=== PATIENT | male | born 1955 | race Caucasian/White ===

== ENCOUNTER 2019-03-25 09:51 | Inpatient (IN) | payer OTHER ==
[~2019-03-25] VITALS: Ht 175.3 cm; Wt 89.9 kg
[2019-03-25] MEDS ORDERED: ASPIRIN 81 MG CHEW TAB PO STA (09:54)
[2019-03-25 10:13] LABS: BASOPHILS % 0.3 % (0.0-1.0); EOSINOPHILS # (AUTO) 0.1 (0.0-0.4); EOSINOPHILS % 1.8 % (0.0-6.0); HEMATOCRIT 29.4 % (38.2-49.6); HEMOGLOBIN 8.4 g/dL (14.0-18.0); LYMPHOCYTES # (AUTO) 0.5 (1.0-3.2); LYMPHOCYTES % 7.6 % (18.0-39.1); MEAN CORPUSCULAR HEMOGLOBIN 21.5 pg (28-32); MEAN CORPUSCULAR HGB CONC 28.6 g/dL (31-35); MEAN CORPUSCULAR VOLUME 75.2 fL (81-99); MONOCYTES # (AUTO) 0.4 (0.2-0.8); MONOCYTES % 6.1 % (4.4-11.3); NEUTROPHILS # (AUTO) 5.1 (2.1-6.9); NEUTROPHILS % 81.2 % (38.7-80.0); PLATELET COUNT 258 x10e3/uL (140-360); RED BLOOD COUNT 3.91 x10e6/uL (4.3-5.7); RED CELL DISTRIBUTION WIDTH 18.9 % (11.7-14.4)
[2019-03-25 10:30] LABS: INR 1.04; PROTHROMBIN TIME 14.1 seconds (11.9-14.5)
[2019-03-25] MEDS ORDERED: NITROGLYCERIN 2% OINT 1 GM PKT TOP ONE (10:30)
[2019-03-25 10:31] LABS: ALBUMIN 3.4 g/dL (3.5-5.0); ALBUMIN/GLOBULIN RATIO 0.8 (0.8-2.0); CALCIUM 9.3 mg/dL (8.4-10.2); CREATININE, SERUM 1.86 mg/dL (0.72-1.25); PARTIAL THROMBOPLASTIN TIME 37.9 seconds (23.8-35.5)
--- NOTE | 2019-03-25 10:44 | Diagnostic Imaging Report ---
EXAMINATION: CHEST 2 VIEWS INDICATION: Chest pain, shortness of breath COMPARISON: None FINDINGS: LINES/TUBES:Left chest AICD. EKG leads overlie the chest. LUNGS:The lungs are mildly hyperinflated. There is perihilar fullness and indistinctness of the pulmonary vasculature. PLEURA:No pleural effusion or pneumothorax. MEDIASTINUM:The heart is enlarged. Postoperative findings of prior CABG. BONES/SOFT TISSUES:No acute osseous injury. Sternotomy wires intact. ABDOMEN:No free air under the diaphragm. IMPRESSION: Cardiomegaly and mild pulmonary edema. Signed by: Jurgen Costello MD on 03/25/2019 10:40 AM
--- NOTE | 2019-03-25 10:45 | NUR ---
PATIENT STATES, "IM HAVING A HARD TIME BREATHING". 02 SAT 100@ ON RA. PATIENT PLACED ON NC FOR COMFORT. DR. HENDERSON AWARE
[2019-03-25 10:53] LABS: CREATINE KINASE MB 1.5 ng/mL (0-5.0)
[2019-03-25] MEDS ORDERED: ALLOPURINOL100 MG PO (11:22)
[2019-03-25] MEDS ORDERED: AMIODARONE HCL100 MG PO (11:22)
[2019-03-25] MEDS ORDERED: ALBUTEROL0.63 MG/3 IH (11:22)
[2019-03-25 11:44] LABS: HYPOCHROMASIA SLIGHT
[2019-03-25 11:45] LABS: RBC MORPHOLOGY COMMENT ABNORMAL
[2019-03-25] MEDS ORDERED: NITROGLYCERIN0.4 MG SL (11:48)
[2019-03-25] MEDS ORDERED: DOCUSATE SODIU100 MG PO (11:48)
[2019-03-25] MEDS ORDERED: POTASSIUM CHLO10 ME1 PO (11:48)
[2019-03-25] MEDS ORDERED: SYNTHROID50 MCG PO (11:48)
[2019-03-25] MEDS ORDERED: FUROSEMIDE40 MG PO (11:48)
[2019-03-25] MEDS ORDERED: LIPITOR10 MG PO (11:48)
[2019-03-25] MEDS ORDERED: METOPROLOL SUCC50 MG PO (11:48)
[2019-03-25] MEDS ORDERED: VITAMIN D400 UNIT PO (11:48)
[2019-03-25] MEDS ORDERED: FENOFIBRATE145 MG PO (11:48)
[2019-03-25] MEDS ORDERED: PANTOPRAZOLE SO40 MG PO (11:48)
[2019-03-25] MEDS ORDERED: ASPIR 8181 MG PO (11:48)
[2019-03-25] MEDS ORDERED: GLIPIZIDE5 MG PO (11:48)
[2019-03-25] MEDS ORDERED: MULTI-VITAMIN1 EACH PO (11:48)
[2019-03-25] MEDS ORDERED: CLOPIDOGREL75 MG PO (11:48)
[2019-03-25] MEDS ORDERED: ERGOCALCIF8000 UNIT/ (11:48)
[2019-03-25] MEDS ORDERED: D3-5050000 UNIT PO (11:48)
[2019-03-25] MEDS ORDERED: OMEGA-31000 MG PO (11:48)
[2019-03-25] MEDS ORDERED: ISOSORBIDE DINI20 MG PO (11:48)
[2019-03-25] MEDS ORDERED: XARELTO20 MG PO (12:17)
[2019-03-25] MEDS ORDERED: RANEXA500 MG PO (12:17)
[2019-03-25] MEDS ORDERED: FUROSEMIDE INJ 10 MG/ML 2 ML VIAL IV ONE (12:30)
--- NOTE | 2019-03-25 12:54 | NUR ---
MEAL TRAY AT BEDSIDE
[2019-03-25] MEDS ORDERED: SODIUM CHLORIDE FLUSH 10 ML SYR INJ PRN (13:00)
[2019-03-25] MEDS ORDERED: ONDANSETRON HCL INJ 2MG/ML 2ML 2 MG/ML VIAL IV PRN (13:00)
--- NOTE | 2019-03-25 13:02 | NUR ---
SPOKE WITH PATIENT AND FAMILY MEMBER AT BEDSIDE WHO CONSULTED THE VIA PHONE. PATIENT DID NOT TAKE HIS XARELTO LAST NIGHT BECAUSE HE WAS NOT FEELING WELL, ALSO DID NOT TAKE HIS MORNING MEDS. PER DR. HENDERSON, WE ORDERED HIS AMIODORONE, CLOPIDAGREL AND XARELTO
[2019-03-25] MEDS: AMIODARONE HCL 200 MG TAB PO SCH (13:23)
[2019-03-25] MEDS ORDERED: CLOPIDOGREL BISULFATE 75 MG TAB PO SCH (13:30)
[2019-03-25] MEDS ORDERED: RIVAROXABAN 20 MG TABLET PO SCH (13:30)
--- OUTSIDE RECORDS SUMMARY | 2019-03-25 13:38 | XMS REPORT ---
[facility] Address Unknown Phone Unavailable Care Team Providers Care Cash Sales Audit Clerk Name Role Phone Sahara MG Unavailable Unavailable BLESSING GUZMAN Unavailable Unavailable Payers Payer Name Policy Type Policy Number Effective Date Expiration Date Problems This patient has no known problems. Allergies, Adverse Reactions, Alerts Allergy Name Allergy Type Status Severity Reaction(s) Onset Date Inactive Date Treating Clinician Comments No Known Allergies DA Active U 2019-03-18 00:00:00 No Known Allergies DA Active U 2019-03-17 00:00:00 No Known Allergies DA Active U 2018-03-07 00:00:00 No Known Allergies DA Active U 2017-04-06 00:00:00 Medications This patient has no known medications. Encounters Start Date/Time End Date/Time Encounter Type Admission Type Attending Clinicians [facility] Facility Care Department Encounter ID 2018-12-15 11:15:07 Inpatient [facility] [id number] 2018-12-13 10:10:37 Inpatient [facility] [id number] 2018-12-10 11:04:00 Inpatient [facility] [id number] 2018-12-10 00:00:00 Inpatient [facility] [id number] 2018-01-06 00:00:00 Inpatient [facility] [id number] 2018-01-05 08:41:56 Inpatient [facility] [id number] 2018-01-05 04:13:08 Inpatient [facility] [id number] 2018-01-05 00:00:00 Inpatient [facility] [id number] 2018-01-04 11:28:01 Inpatient [facility] [id number] 2018-01-04 09:05:18 Inpatient [facility] [id number] 2018-01-04 00:00:00 Inpatient [facility] [id number] 2019-04-21 00:00:00 2019-04-21 00:00:00 Outpatient [facility] [id number] 2019-04-12 00:00:00 2019-04-12 00:00:00 Outpatient [facility] [id number] 2019-04-11 00:00:00 2019-04-11 00:00:00 Outpatient [facility] [id number] 2019-03-31 00:00:00 2019-03-31 00:00:00 Outpatient [facility] [id number] 2019-03-31 00:00:00 2019-03-31 00:00:00 Outpatient [facility] [id number] 2019-03-18 00:00:00 2019-03-18 00:00:00 Outpatient [facility] [id number] 2019-03-10 10:50:21 2019-03-10 10:50:21 Outpatient [facility] [id number] 2019-03-10 10:42:14 2019-03-10 10:42:14 Outpatient [facility] [id number] 2019-03-10 09:37:17 2019-03-10 09:37:17 Outpatient [facility] [id number] 2019-03-10 00:00:00 2019-03-10 00:00:00 Outpatient [facility] [id number] 2019-03-01 09:55:26 2019-03-01 09:55:26 Outpatient [facility] [id number] 2019-03-01 08:48:43 2019-03-01 08:48:43 Outpatient [facility] [id number] 2019-03-01 00:00:00 2019-03-01 00:00:00 Outpatient [facility] [id number] 2019-02-28 00:00:00 2019-02-28 00:00:00 Outpatient [facility] [id number] 2019-02-14 00:00:00 2019-02-14 00:00:00 Outpatient [facility] [id number] 2019-01-31 00:00:00 2019-01-31 00:00:00 Outpatient [facility] [id number] 2019-01-31 00:00:00 2019-01-31 00:00:00 Outpatient [facility] [id number] 2019-01-05 08:11:53 2019-01-05 08:11:53 Outpatient [facility] [id number] 2019-01-04 11:38:09 2019-01-04 11:38:09 Outpatient [facility] [id number] 2019-01-04 10:24:45 2019-01-04 10:24:45 Outpatient [facility] [id number] 2018-12-30 11:29:03 2018-12-30 11:29:03 Outpatient [facility] [id number] 2018-12-23 08:08:37 2018-12-23 08:08:37 Outpatient [facility] [id number] 2018-12-21 00:00:00 2018-12-21 00:00:00 Outpatient [facility] [id number] 2018-12-13 00:00:00 2018-12-13 00:00:00 Outpatient [facility] [id number] 2018-12-13 00:00:00 2018-12-13 00:00:00 Outpatient [facility] [id number] 2018-12-10 08:37:49 2018-12-10 08:37:49 Outpatient [facility] [id number] 2018-12-01 09:59:44 2018-12-01 09:59:44 Outpatient [facility] [id number] 2018-11-30 11:39:40 2018-11-30 11:39:40 Outpatient [facility] [id number] 2018-11-30 09:59:56 2018-11-30 09:59:56 Outpatient [facility] [id number] 2018-11-30 00:00:00 2018-11-30 00:00:00 Outpatient [facility] [id number] 2018-11-19 00:00:00 2018-11-19 00:00:00 Outpatient [facility] [id number] 2018-10-21 00:00:00 2018-10-21 00:00:00 Outpatient [facility] [id number] 2018-08-02 10:28:34 2018-08-02 10:28:34 Outpatient [facility] [id number] 2018-07-06 00:00:00 2018-07-06 00:00:00 Outpatient [facility] [id number] 2018-06-08 11:01:16 2018-06-08 11:01:16 Outpatient [facility] [id number] 2018-05-25 10:35:53 2018-05-25 10:35:53 Outpatient [facility] [id number] 2018-05-12 12:42:01 2018-05-12 12:42:01 Emergency [facility] [id number] 2018-05-12 11:16:00 2018-05-12 11:16:00 Emergency [facility] [id number] 2018-05-12 10:00:19 2018-05-12 10:00:19 Outpatient [facility] [id number] 2018-04-30 10:42:20 2018-04-30 10:42:20 Outpatient [facility] [id number] 2018-04-30 00:00:00 2018-04-30 00:00:00 Outpatient [facility] [id number] 2018-04-29 00:00:00 2018-04-29 00:00:00 Outpatient [facility] [id number] 2018-04-20 09:58:12 2018-04-20 09:58:12 Outpatient [facility] [id number] 2018-04-16 08:58:54 2018-04-16 08:58:54 Outpatient [facility] [id number] 2018-04-15 10:16:20 2018-04-15 10:16:20 Outpatient [facility] [id number] 2018-04-15 10:12:52 2018-04-15 10:12:52 Outpatient [facility] [id number] 2018-04-14 12:21:31 2018-04-14 12:21:31 Outpatient [facility] [id number] 2018-04-14 07:43:22 2018-04-14 07:43:22 Outpatient [facility] [id number] 2018-04-13 16:19:04 2018-04-13 16:19:04 Outpatient [facility] [id number] 2018-04-13 13:50:00 2018-04-13 13:50:00 Outpatient [facility] [id number] 2018-04-13 10:01:35 2018-04-13 10:01:35 Outpatient [facility] [id number] 2018-04-13 00:00:00 2018-04-13 00:00:00 Outpatient [facility] [id number] 2018-03-19 00:00:00 2018-03-19 00:00:00 Outpatient [facility] [id number] 2018-01-22 10:13:22 2018-01-22 10:13:22 Outpatient [facility] [id number] 2018-01-13 00:00:00 2018-01-13 00:00:00 Outpatient [facility] [id number] 2018-01-12 10:52:54 2018-01-12 10:52:54 Outpatient [facility] [id number] 2018-01-05 00:00:00 2018-01-05 00:00:00 Outpatient [facility] [id number] 2017-12-31 00:00:00 2017-12-31 00:00:00 Outpatient [facility] [id number] 2017-12-29 12:33:57 2017-12-29 12:33:57 Emergency [facility] [id number] 2017-12-29 11:43:21 2017-12-29 11:43:21 Inpatient [facility] [id number] 2017-12-29 00:00:00 2017-12-29 00:00:00 Outpatient [facility] [id number] 2017-12-29 00:00:00 2017-12-29 00:00:00 Outpatient [facility] [id number] 2017-12-24 00:00:00 2017-12-24 00:00:00 Outpatient [facility] [id number] 2017-12-23 12:54:13 2017-12-23 12:54:13 Outpatient [facility] [id number] 2017-12-21 00:00:00 2017-12-21 00:00:00 Outpatient [facility] [id number] 2017-12-14 11:00:52 2017-12-14 11:00:52 Outpatient [facility] [id number] 2017-12-14 10:12:57 2017-12-14 10:12:57 Outpatient [facility] [id number] 2017-12-05 11:24:29 2017-12-05 11:24:29 Outpatient [facility] [id number] 2017-12-04 14:54:34 2017-12-04 14:54:34 Outpatient [facility] [id number] 2017-12-04 08:38:14 2017-12-04 08:38:14 Outpatient [facility] [id number] 2017-12-04 08:06:35 2017-12-04 08:06:35 Outpatient [facility] [id number] 2017-12-03 13:57:40 2017-12-03 13:57:40 Outpatient [facility] [id number] 2017-12-02 15:59:00 2017-12-02 15:59:00 Inpatient [facility] [id number] 2017-12-02 15:21:35 2017-12-02 15:21:35 Outpatient [facility] [id number] 2017-12-02 10:53:09 2017-12-02 10:53:09 Outpatient [facility] [id number] 2017-11-27 10:54:23 2017-11-27 10:54:23 Outpatient [facility] [id number] 2017-11-18 00:00:00 2017-11-18 00:00:00 Outpatient [facility] [id number] 2017-11-13 10:46:09 2017-11-13 10:46:09 Outpatient [facility] [id number] 2017-11-12 00:00:00 2017-11-12 00:00:00 Outpatient [facility] [id number] 2017-11-11 14:00:14 2017-11-11 14:00:14 Outpatient [facility] [id number] 2017-11-11 11:06:29 2017-11-11 11:06:29 Outpatient [facility] [id number] 2017-11-06 09:05:53 2017-11-06 09:05:53 Outpatient [facility] [id number] 2017-11-06 07:53:54 2017-11-06 07:53:54 Outpatient [facility] [id number] 2017-11-02 00:00:00 2017-11-02 00:00:00 Outpatient [facility] [id number] 2017-10-27 08:24:34 2017-10-27 08:24:34 Outpatient [facility] [id number] 2017-10-20 08:16:00 2017-10-20 08:16:00 Outpatient [facility] [id number] 2017-09-17 13:54:21 2017-09-17 13:54:21 Outpatient [facility] [id number] 2017-09-03 13:28:37 2017-09-03 13:28:37 Outpatient [facility] [id number] 2017-08-06 13:50:10 2017-08-06 13:50:10 Outpatient [facility] [id number] 2017-08-06 13:29:34 2017-08-06 13:29:34 Outpatient [facility] [id number] 2017-08-06 00:00:00 2017-08-06 00:00:00 Outpatient [facility] [id number] 2017-07-31 15:18:25 2017-07-31 15:18:25 Outpatient [facility] [id number] 2017-07-08 09:39:11 2017-07-08 09:39:11 Outpatient [facility] [id number] 2017-07-01 14:42:28 2017-07-01 14:42:28 Outpatient [facility] [id number] 2017-06-11 10:11:10 2017-06-11 10:11:10 Outpatient [facility] [id number] 2017-06-11 09:58:24 2017-06-11 09:58:24 Outpatient [facility] [id number] 2017-06-11 09:44:20 2017-06-11 09:44:20 Outpatient [facility] [id number] 2017-06-11 08:29:43 2017-06-11 08:29:43 Outpatient [facility] [id number] Results Test Description Test Time Test Comments Text Results Atomic Results Result Comments CHEST 2 VIEWS 2019-03-25 10:39:00 [place] [address] Patient Name: REJI BARRETT MR #: [id number] : 1955 Age/Sex: 63/M Req #: [id number] Adm Physician: Ordered by: ANDRZEJ MG MD Report #: [id number] Location: ER Room/Bed: Procedure: [id number] DX/CHEST 2 VIEWS Exam Date: 03/25/19 Exam Time: 1010 REPORT STATUS: Signed EXAMINATION: CHEST 2 VIEWS INDICATION: Chest pain, shortness of breath COMPARISON: None FINDINGS: LINES/TUBES:Left chest AICD. EKG leads overlie the chest. LUNGS:The lungs are mildly hyperinflated. There is perihilar fullness and indistinctness of the pulmonary vasculature. PLEURA:No pleural effusion or pneumothorax. MEDIASTINUM:The heart is enlarged. Postoperative findings of prior CABG. BONES/SOFT TISSUES:No acute osseous injury. Sternotomy wires intact. ABDOMEN:No free air under the diaphragm. IMPRESSION: Cardiomegaly and mild pulmonary edema. Signed by: Antonio Flores MD on 03/25/2019 10:40 AM Dictated By: ANTONIO FLORES MD 39 Transcribed By: DANNIE on 03/25/191039 COPY TO: ANDRZEJ MG MD GLUBED 2019-03-24 12:41:00 GLUBED (test code=GLUBED) 110 mg/dL 74-106 Performed by certified veterinary x ray operator at [facility] THROMBOPLASTIN TIME [id number] 08:13:00* Test Item Value Reference Range Comments THROMBOPLASTIN TIME PARTIAL (test code=PTT) 56.3 seconds 25.0-36.5 IS PATIENT ON ANTICOAGULANTS? YLIST ANTICOAGULANTS HEPARINSPECIMEN COMMENTS: PLEASE DRAW ON TIME---TIMED [id number] 06:09:00* Test Item Value Reference Range Comments GLUBED (test code=GLUBED) 114 mg/dL 74-106 Performed by certified veterinary x ray operator at [facility] THROMBOPLASTIN TIME [id number] 02:29:00* Test Item Value Reference Range Comments THROMBOPLASTIN TIME PARTIAL (test code=PTT) 50.8 seconds 25.0-36.5 IS PATIENT ON ANTICOAGULANTS? YLIST ANTICOAGULANTS [id number] 22:45:00* Test Item Value Reference Range Comments GLUBED (test code=GLUBED) 112 mg/dL 74-106 Performed by certified veterinary x ray operator at [facility] [id number] 21:04:00* Test Item Value Reference Range Comments GLUBED (test code=GLUBED) 56 mg/dL 74-106 Performed by certified veterinary x ray operator at [facility] THROMBOPLASTIN TIME [id number] 19:05:00* Test Item Value Reference Range Comments THROMBOPLASTIN TIME PARTIAL (test code=PTT) 63.0 seconds 25.0-36.5 IS PATIENT ON ANTICOAGULANTS? YLIST ANTICOAGULANTS [id number] 16:53:00* Test Item Value Reference Range Comments GLUBED (test code=GLUBED) 101 mg/dL 74-106 Performed by certified veterinary x ray operator at [facility] [id number] 14:03:00* Test Item Value Reference Range Comments TROPONIN-I (test code=TROPI) 1.180 ng/mL 0-0.045 Results called to [id number] by V.LAB.GP 03/23/19 1403Critical results verified and read back by Nurse? Y BASIC METABOLIC [id number] 13:57:00* Test Item Value Reference Range Comments SODIUM (test code=NA) 140 mmol/L 136-145 POTASSIUM (test code=K) 4.0 mmol/L 3.5-5.1 CHLORIDE (test code=CL) 103.0 mmol/L 98-107 CARBON DIOXIDE (test code=CO2) 30.0 mmol/L 21-32 ANION GAP (test code=GAP) 11.0 10-20 GLUCOSE (test code=GLU) 162 mg/dL 74-106 BLOOD UREA NITROGEN (test code=BUN) 22 mg/dL 7-18 GLOMERULAR FILTRATION RATE (test code=GFR) 41 mL/min >=60 Estimated GFR by using Modified MDRD formula.Chronic kidney disease is defined as either kidney damageor GFR <60 mL/min/1.73 m2 for >3 months. CREATININE (test code=CREAT) 1.70 mg/dL 0.7-1.3 BUN/CREATININE RATIO (test code=BUN/CREA) 12.9 10-20 CALCIUM (test code=CA) 8.6 mg/dL 8.5-10.1 PER RN TAMERA IT IS OKAY TO DRAW WITH PTT V.LAB.KP2 03/23/200908CBC W/AUTO DIFF 2019-03-23 13:54:00* Test Item Value Reference Range Comments WHITE BLOOD CELL (test code=WBC) 5.8 K/mm3 4.5-12.5 RED BLOOD CELL (test code=RBC) 3.67 mill/mm3 4.0-5.8 HEMOGLOBIN (test code=HGB) 7.9 gram/dL 13.0-17.5 HEMATOCRIT (test code=HCT) 28.0 % 42.0-52.0 MEAN CELL VOLUME (test code=MCV) 76.3 fL 80-98 MEAN CELL HGB (test code=MCH) 21.5 picogram 27.0-33.0 MEAN CELL HGB CONCETRATION (test code=MCHC) 28.2 gram/dL 33.0-36.0 RED CELL DISTRIBUTION WIDTH (test code=RDW) 18.7 % 11.6-16.2 RED CELL DISTRIBUTION WIDTH SD (test code=RDW-SD) 50.6 fL 37.0-51.0 PLATELET COUNT (test code=PLT) 220 K/mm3 150-450 MEAN PLATELET VOLUME (test code=MPV) 10.7 fL 6.7-11.0 NEUTROPHIL % (test code=NT%) 78.9 % 39.0-69.0 IMMATURE GRANULOCYTE % (test code=IG%) 1.9 % 0.0-5.0 LYMPHOCYTE % (test code=LY%) 9.4 % 25.0-55.0 MONOCYTE % (test code=MO%) 6.3 % 0.0-10.0 EOSINOPHIL % (test code=EO%) 2.8 % 0.0-5.0 BASOPHIL % (test code=BA%) 0.7 % 0.0-1.0 NUCLEATED RBC % (test code=NRBC%) 0.9 % 0-0 NEUTROPHIL # (test code=NT#) 4.55 K/mm3 1.8-7.7 IMMATURE GRANULOCYTE # (test code=IG#) 0.11 x10 3/uL 0-0.03 LYMPHOCYTE # (test code=LY#) 0.54 K/mm3 1.0-5.0 MONOCYTE # (test code=MO#) 0.36 K/mm3 0-0.8 EOSINOPHIL # (test code=EO#) 0.16 K/mm3 0.0-0.5 BASOPHIL # (test code=BA#) 0.04 K/mm3 0.0-0.2 NUCLEATED RBC # (test code=NRBC#) 0.05 K/mm3 0.0-0.1 MANUAL DIFF REQUIRED (test code=MDIFF) NO, ONLY SCAN NEEDED PER LAMINE PHILIP IT IS OKAY TO DRAW WITH PTT AT 1140 V.LAB.KP 1009 DIFFERENTIAL [id number] 13:54:00* Test Item Value Reference Range Comments STAIN ACCEPTABILITY (test code=STN ACCEPTABLE) STAIN ACCEPTABLE POIKILOCYTOSIS (test code=POIK) 1+ ANISOCYTOSIS (test code=ANISO) 2+ MICROCYTOSIS (test code=MICR) 2+ ELLIPTOCYTES (test code=ELL) 1+ PLATELET ESTIMATE (test code=PLTEST) ADEQUATE PLATELET MORPHOLOGY (test code=PLTMORPH) NORMAL PER RN TAMERA IT IS OKAY TO DRAW WITH PTT AT 1140 V.LAB.KP 1009BASIC METABOLIC [id number] 13:50:00* Test Item Value Reference Range Comments SODIUM (test code=NA) 140 mmol/L 136-145 POTASSIUM (test code=K) 4.0 mmol/L 3.5-5.1 CHLORIDE (test code=CL) 103.0 mmol/L 98-107 CARBON DIOXIDE (test code=CO2) mmol/L 21-32 ANION GAP (test code=GAP) 10-20 GLUCOSE (test code=GLU) mg/dL 74-106 BLOOD UREA NITROGEN (test code=BUN) mg/dL 7-18 GLOMERULAR FILTRATION RATE (test code=GFR) mL/min >=60 CREATININE (test code=CREAT) mg/dL 0.7-1.3 BUN/CREATININE RATIO (test code=BUN/CREA) 10-20 CALCIUM (test code=CA) mg/dL 8.5-10.1 PER LAMINE PHILIP IT IS OKAY TO DRAW WITH PTT V.LAB.2 03/23/2009436952WFHTZQJVCJGZKL TIME [id number] 13:25:00* Test Item Value Reference Range Comments THROMBOPLASTIN TIME PARTIAL (test code=PTT) 59.4 seconds 25.0-36.5 IS PATIENT ON ANTICOAGULANTS? YLIST ANTICOAGULANTS HEPARINCBC W/AUTO DIFF 2019-03-23 13:14:00* Test Item Value Reference Range Comments WHITE BLOOD CELL (test code=WBC) 5.8 K/mm3 4.5-12.5 RED BLOOD CELL (test code=RBC) 3.67 mill/mm3 4.0-5.8 HEMOGLOBIN (test code=HGB) 7.9 gram/dL 13.0-17.5 HEMATOCRIT (test code=HCT) 28.0 % 42.0-52.0 MEAN CELL VOLUME (test code=MCV) 76.3 fL 80-98 MEAN CELL HGB (test code=MCH) 21.5 picogram 27.0-33.0 MEAN CELL HGB CONCETRATION (test code=MCHC) 28.2 gram/dL 33.0-36.0 RED CELL DISTRIBUTION WIDTH (test code=RDW) 18.7 % 11.6-16.2 RED CELL DISTRIBUTION WIDTH SD (test code=RDW-SD) 50.6 fL 37.0-51.0 PLATELET COUNT (test code=PLT) 220 K/mm3 150-450 MEAN PLATELET VOLUME (test code=MPV) 10.7 fL 6.7-11.0 NEUTROPHIL % (test code=NT%) 78.9 % 39.0-69.0 IMMATURE GRANULOCYTE % (test code=IG%) 1.9 % 0.0-5.0 LYMPHOCYTE % (test code=LY%) 9.4 % 25.0-55.0 MONOCYTE % (test code=MO%) 6.3 % 0.0-10.0 EOSINOPHIL % (test code=EO%) 2.8 % 0.0-5.0 BASOPHIL % (test code=BA%) 0.7 % 0.0-1.0 NUCLEATED RBC % (test code=NRBC%) 0.9 % 0-0 NEUTROPHIL # (test code=NT#) 4.55 K/mm3 1.8-7.7 IMMATURE GRANULOCYTE # (test code=IG#) 0.11 x10 3/uL 0-0.03 LYMPHOCYTE # (test code=LY#) 0.54 K/mm3 1.0-5.0 MONOCYTE # (test code=MO#) 0.36 K/mm3 0-0.8 EOSINOPHIL # (test code=EO#) 0.16 K/mm3 0.0-0.5 BASOPHIL # (test code=BA#) 0.04 K/mm3 0.0-0.2 NUCLEATED RBC # (test code=NRBC#) 0.05 K/mm3 0.0-0.1 MANUAL DIFF REQUIRED (test code=MDIFF) NO, ONLY SCAN NEEDED PER LAMINE PHILIP IT IS OKAY TO DRAW WITH PTT AT 1140 V.LAB.KP 1009 DIFFERENTIAL [id number] 13:14:00* Test Item Value Reference Range Comments STAIN ACCEPTABILITY (test code=STN ACCEPTABLE) CABOT RINGS (test code=CAB) MORPHOLOGY COMMENT (test code=MOC) PLATELET ESTIMATE (test code=PLTEST) PLATELET MORPHOLOGY (test code=PLTMORPH) PER LAMINE PHILIP IT IS OKAY TO DRAW WITH PTT AT 1140 V.LAB. 1009CBC W/AUTO [id number] 13:14:00* Test Item Value Reference Range Comments WHITE BLOOD CELL (test code=WBC) 5.8 K/mm3 4.5-12.5 RED BLOOD CELL (test code=RBC) 3.67 mill/mm3 4.0-5.8 HEMOGLOBIN (test code=HGB) 7.9 gram/dL 13.0-17.5 HEMATOCRIT (test code=HCT) 28.0 % 42.0-52.0 MEAN CELL VOLUME (test code=MCV) 76.3 fL 80-98 MEAN CELL HGB (test code=MCH) 21.5 picogram 27.0-33.0 MEAN CELL HGB CONCETRATION (test code=MCHC) 28.2 gram/dL 33.0-36.0 RED CELL DISTRIBUTION WIDTH (test code=RDW) 18.7 % 11.6-16.2 RED CELL DISTRIBUTION WIDTH SD (test code=RDW-SD) 50.6 fL 37.0-51.0 PLATELET COUNT (test code=PLT) 220 K/mm3 150-450 MEAN PLATELET VOLUME (test code=MPV) 10.7 fL 6.7-11.0 NEUTROPHIL % (test code=NT%) 78.9 % 39.0-69.0 IMMATURE GRANULOCYTE % (test code=IG%) 1.9 % 0.0-5.0 LYMPHOCYTE % (test code=LY%) 9.4 % 25.0-55.0 MONOCYTE % (test code=MO%) 6.3 % 0.0-10.0 EOSINOPHIL % (test code=EO%) 2.8 % 0.0-5.0 BASOPHIL % (test code=BA%) 0.7 % 0.0-1.0 NUCLEATED RBC % (test code=NRBC%) 0.9 % 0-0 NEUTROPHIL # (test code=NT#) 4.55 K/mm3 1.8-7.7 IMMATURE GRANULOCYTE # (test code=IG#) 0.11 x10 3/uL 0-0.03 LYMPHOCYTE # (test code=LY#) 0.54 K/mm3 1.0-5.0 MONOCYTE # (test code=MO#) 0.36 K/mm3 0-0.8 EOSINOPHIL # (test code=EO#) 0.16 K/mm3 0.0-0.5 BASOPHIL # (test code=BA#) 0.04 K/mm3 0.0-0.2 NUCLEATED RBC # (test code=NRBC#) 0.05 K/mm3 0.0-0.1 MANUAL DIFF REQUIRED (test code=MDIFF) NO, ONLY SCAN NEEDED PER RN TAMERA IT IS OKAY TO DRAW WITH PTT AT 1140 V.LAB. 1009 DIFFERENTIAL [id number] 13:14:00* Test Item Value Reference Range Comments STAIN ACCEPTABILITY (test code=STN ACCEPTABLE) CABOT RINGS (test code=CAB) MORPHOLOGY COMMENT (test code=MOC) PLATELET ESTIMATE (test code=PLTEST) PLATELET MORPHOLOGY (test code=PLTMORPH) PER RN TAMERA IT IS OKAY TO DRAW WITH PTT AT 1140 V.LAB. 1009CBC W/AUTO [id number] 13:14:00* Test Item Value Reference Range Comments WHITE BLOOD CELL (test code=WBC) 5.8 K/mm3 4.5-12.5 RED BLOOD CELL (test code=RBC) 3.67 mill/mm3 4.0-5.8 HEMOGLOBIN (test code=HGB) 7.9 gram/dL 13.0-17.5 HEMATOCRIT (test code=HCT) 28.0 % 42.0-52.0 MEAN CELL VOLUME (test code=MCV) 76.3 fL 80-98 MEAN CELL HGB (test code=MCH) 21.5 picogram 27.0-33.0 MEAN CELL HGB CONCETRATION (test code=MCHC) 28.2 gram/dL 33.0-36.0 RED CELL DISTRIBUTION WIDTH (test code=RDW) 18.7 % 11.6-16.2 RED CELL DISTRIBUTION WIDTH SD (test code=RDW-SD) 50.6 fL 37.0-51.0 PLATELET COUNT (test code=PLT) 220 K/mm3 150-450 MEAN PLATELET VOLUME (test code=MPV) 10.7 fL 6.7-11.0 NEUTROPHIL % (test code=NT%) 78.9 % 39.0-69.0 IMMATURE GRANULOCYTE % (test code=IG%) 1.9 % 0.0-5.0 LYMPHOCYTE % (test code=LY%) 9.4 % 25.0-55.0 MONOCYTE % (test code=MO%) 6.3 % 0.0-10.0 EOSINOPHIL % (test code=EO%) 2.8 % 0.0-5.0 BASOPHIL % (test code=BA%) 0.7 % 0.0-1.0 NUCLEATED RBC % (test code=NRBC%) 0.9 % 0-0 NEUTROPHIL # (test code=NT#) 4.55 K/mm3 1.8-7.7 IMMATURE GRANULOCYTE # (test code=IG#) 0.11 x10 3/uL 0-0.03 LYMPHOCYTE # (test code=LY#) 0.54 K/mm3 1.0-5.0 MONOCYTE # (test code=MO#) 0.36 K/mm3 0-0.8 EOSINOPHIL # (test code=EO#) 0.16 K/mm3 0.0-0.5 BASOPHIL # (test code=BA#) 0.04 K/mm3 0.0-0.2 NUCLEATED RBC # (test code=NRBC#) 0.05 K/mm3 0.0-0.1 MANUAL DIFF REQUIRED (test code=MDIFF) NO, ONLY SCAN NEEDED PER RN TAMERA IT IS OKAY TO DRAW WITH PTT AT 1140 V.LAB. 1009 DIFFERENTIAL [id number] 13:14:00* Test Item Value Reference Range Comments STAIN ACCEPTABILITY (test code=STN ACCEPTABLE) MORPHOLOGY COMMENT (test code=MOC) PLATELET ESTIMATE (test code=PLTEST) PLATELET MORPHOLOGY (test code=PLTMORPH) PER RN TAMERA IT IS OKAY TO DRAW WITH PTT AT 1140 V.LAB. 1009CBC W/AUTO [id number] 13:14:00* Test Item Value Reference Range Comments WHITE BLOOD CELL (test code=WBC) 5.8 K/mm3 4.5-12.5 RED BLOOD CELL (test code=RBC) 3.67 mill/mm3 4.0-5.8 HEMOGLOBIN (test code=HGB) 7.9 gram/dL 13.0-17.5 HEMATOCRIT (test code=HCT) 28.0 % 42.0-52.0 MEAN CELL VOLUME (test code=MCV) 76.3 fL 80-98 MEAN CELL HGB (test code=MCH) 21.5 picogram 27.0-33.0 MEAN CELL HGB CONCETRATION (test code=MCHC) 28.2 gram/dL 33.0-36.0 RED CELL DISTRIBUTION WIDTH (test code=RDW) 18.7 % 11.6-16.2 RED CELL DISTRIBUTION WIDTH SD (test code=RDW-SD) 50.6 fL 37.0-51.0 PLATELET COUNT (test code=PLT) 220 K/mm3 150-450 MEAN PLATELET VOLUME (test code=MPV) 10.7 fL 6.7-11.0 NEUTROPHIL % (test code=NT%) 78.9 % 39.0-69.0 IMMATURE GRANULOCYTE % (test code=IG%) 1.9 % 0.0-5.0 LYMPHOCYTE % (test code=LY%) 9.4 % 25.0-55.0 MONOCYTE % (test code=MO%) 6.3 % 0.0-10.0 EOSINOPHIL % (test code=EO%) 2.8 % 0.0-5.0 BASOPHIL % (test code=BA%) 0.7 % 0.0-1.0 NUCLEATED RBC % (test code=NRBC%) 0.9 % 0-0 NEUTROPHIL # (test code=NT#) 4.55 K/mm3 1.8-7.7 IMMATURE GRANULOCYTE # (test code=IG#) 0.11 x10 3/uL 0-0.03 LYMPHOCYTE # (test code=LY#) 0.54 K/mm3 1.0-5.0 MONOCYTE # (test code=MO#) 0.36 K/mm3 0-0.8 EOSINOPHIL # (test code=EO#) 0.16 K/mm3 0.0-0.5 BASOPHIL # (test code=BA#) 0.04 K/mm3 0.0-0.2 NUCLEATED RBC # (test code=NRBC#) 0.05 K/mm3 0.0-0.1 MANUAL DIFF REQUIRED (test code=MDIFF) NO, ONLY SCAN NEEDED PER RN TAMERA IT IS OKAY TO DRAW WITH PTT AT 1140 V.LAB.KP201/08/20 1009 DIFFERENTIAL [id number] 13:14:00* Test Item Value Reference Range Comments STAIN ACCEPTABILITY (test code=STN ACCEPTABLE) CABOT RINGS (test code=CAB) MORPHOLOGY COMMENT (test code=MOC) PLATELET ESTIMATE (test code=PLTEST) PLATELET MORPHOLOGY (test code=PLTMORPH) PER LAMINE PHILIP IT IS OKAY TO DRAW WITH PTT AT 1140 V.LAB.KP 1009GLUBED 2019-03-23 12:37:00* Test Item Value Reference Range Comments GLUBED (test code=GLUBED) 149 mg/dL 74-106 Performed by certified veterinary x ray operator at [facility] [id number] 12:20:00* Test Item Value Reference Range Comments GLUBED (test code=GLUBED) 53 mg/dL 74-106 Performed by certified veterinary x ray operator at [facility] THROMBOPLASTIN TIME [id number] 06:33:00* Test Item Value Reference Range Comments THROMBOPLASTIN TIME PARTIAL (test code=PTT) 61.5 seconds 25.0-36.5 IS PATIENT ON ANTICOAGULANTS? YLIST ANTICOAGULANTS [id number] 06:15:00* Test Item Value Reference Range Comments GLUBED (test code=GLUBED) 72 mg/dL 74-106 Performed by certified veterinary x ray operator at [facility] THROMBOPLASTIN TIME [id number] 21:36:00* Test Item Value Reference Range Comments THROMBOPLASTIN TIME PARTIAL (test code=PTT) 61.0 seconds 25.0-36.5 IS PATIENT ON ANTICOAGULANTS? YLIST ANTICOAGULANTS [id number] 20:03:00* Test Item Value Reference Range Comments GLUBED (test code=GLUBED) 91 mg/dL 74-106 Performed by certified veterinary x ray operator at [facility] [id number] 17:58:00* Test Item Value Reference Range Comments GLUBED (test code=GLUBED) 80 mg/dL 74-106 Performed by certified veterinary x ray operator at [facility] - XR CHEST 1 [id number] 16:49:00 FAX: Linnette Painter [phone] [place]: [address]: ADM Name: REJI OLSON [facility] : [birth year] Age/S: 63/M [address] [facility] Unit #: [id number] Loc: V.20[address] [place] [address] Phys: Linnette Monreal MD Acct: [id number] Dis Date: Status: ADM IN PHONE #: [phone] Exam Date: 03/22/2019 6941 FAX #: [phone] Reason: CHEST PAIN EXAMS: CPT CODE: [id number] XR CHEST 1 V [id number] REASON FOR EXAM: CHEST PAIN EXAM ORDER DATE: 03/22/2019 12:00 AM Ordering: Linnette Monreal MD Attending:Linnette Monreal MD Locatio n:[facility] PROCEDURE: - XR CHEST 1 V COMPARISON: 0 FINDINGS: Portable AP frontal view of the chest obtained at 3:5 7 PM shows patchy airspace opacity of the bases. There is no evidence of effusion. The heart size is minimally enlarged. Stable appearance of the left subclavian ICD. Pulmonary vasculatures are minimally congested. IMPRESSION: Patchy atelectasis of the bases Electron ically Signed by Maykel Daily on 03/22/2019 at 3097 Repo rted and signed by: Memo Daily M.D. CC: Linnette Monreal MD Technologist: ESAU HANKS, RT(R); Kitty White RT(R) Trnscrd Date/Time/By: 03/22/2019 (505) : By: Arlet Orig Print D/T: S: 03/22/2019 (4326) PAGE 1 Signed Report THROMBOPLASTIN TIME [id number] 16:22:00* Test Item Value Reference Range Comments THROMBOPLASTIN TIME PARTIAL (test code=PTT) 56.9 seconds 25.0-36.5 IS PATIENT ON ANTICOAGULANTS? YLIST ANTICOAGULANTS [id number] 12:33:00* Test Item Value Reference Range Comments GLUBED (test code=GLUBED) 81 mg/dL 74-106 Performed by certified veterinary x ray operator at [facility] THROMBOPLASTIN TIME [id number] 10:56:00* Test Item Value Reference Range Comments THROMBOPLASTIN TIME PARTIAL (test code=PTT) 140.6 seconds 25.0-36.5 Results called to [id number] by BORIS 03/22/19 1037Critical results verified and read back by Nurse? Y IS PATIENT ON ANTICOAGULANTS? YLIST ANTICOAGULANTS [id number] 05:41:00* Test Item Value Reference Range Comments GLUBED (test code=GLUBED) 71 mg/dL 74-106 Performed by certified veterinary x ray operator at [facility] THROMBOPLASTIN TIME [id number] 03:08:00* Test Item Value Reference Range Comments THROMBOPLASTIN TIME PARTIAL (test code=PTT) 43.1 seconds 25.0-36.5 IS PATIENT ON ANTICOAGULANTS? YLIST ANTICOAGULANTS HEPARINTHROMBOPLASTIN TIME [id number] 20:49:00* Test Item Value Reference Range Comments THROMBOPLASTIN TIME PARTIAL (test code=PTT) 64.9 seconds 25.0-36.5 IS PATIENT ON ANTICOAGULANTS? YLIST ANTICOAGULANTS [id number] 20:31:00* Test Item Value Reference Range Comments GLUBED (test code=GLUBED) 132 mg/dL 74-106 Performed by certified veterinary x ray operator at [facility] [id number] 15:18:00* Test Item Value Reference Range Comments GLUBED (test code=GLUBED) 127 mg/dL 74-106 Performed by certified veterinary x ray operator at [facility] [id number] 12:17:00* Test Item Value Reference Range Comments GLUBED (test code=GLUBED) 148 mg/dL 74-106 Performed by certified veterinary x ray operator at [facility] THROMBOPLASTIN TIME [id number] 11:41:00* Test Item Value Reference Range Comments THROMBOPLASTIN TIME PARTIAL (test code=PTT) 142.0 seconds 25.0-36.5 Results called to RAJAN by JENA 03/21/19 1141Critical results verified and read back by Nurse? Y IS PATIENT ON ANTICOAGULANTS? YLIST ANTICOAGULANTS [id number] 05:36:00* Test Item Value Reference Range Comments GLUBED (test code=GLUBED) 114 mg/dL 74-106 Performed by certified veterinary x ray operator at [facility] THROMBOPLASTIN TIME [id number] 04:55:00* Test Item Value Reference Range Comments THROMBOPLASTIN TIME PARTIAL (test code=PTT) 26.7 seconds 25.0-36.5 IS PATIENT ON ANTICOAGULANTS? YLIST ANTICOAGULANTS HEPARINTHROMBOPLASTIN TIME [id number] 23:01:00* Test Item Value Reference Range Comments THROMBOPLASTIN TIME PARTIAL (test code=PTT) 53.8 seconds 25.0-36.5 IS PATIENT ON ANTICOAGULANTS? YLIST ANTICOAGULANTS HEPARINCOMMENTS TO PHLEBO TOMIST: DO NOT DRAW FROM THE LEFT [id number] 21:27:00* Test Item Value Reference Range Comments GLUBED (test code=GLUBED) 112 mg/dL 74-106 Performed by certified veterinary x ray operator at [facility] [id number] 17:25:00* Test Item Value Reference Range Comments GLUBED (test code=GLUBED) 101 mg/dL 74-106 Performed by certified veterinary x ray operator at [facility] THROMBOPLASTIN TIME [id number] 16:32:00* Test Item Value Reference Range Comments THROMBOPLASTIN TIME PARTIAL (test code=PTT) 50.5 seconds 25.0-36.5 IS PATIENT ON ANTICOAGULANTS? YLIST ANTICOAGULANTS HEPARINCOMMENTS TO PHLEBO TOMIST: DO NOT DRAW FROM LEFT [id number] 12:29:00* Test Item Value Reference Range Comments GLUBED (test code=GLUBED) 66 mg/dL 74-106 Performed by certified veterinary x ray operator at [facility] THROMBOPLASTIN TIME [id number] 10:13:00* Test Item Value Reference Range Comments THROMBOPLASTIN TIME PARTIAL (test code=PTT) 55.0 seconds 25.0-36.5 IS PATIENT ON ANTICOAGULANTS? YLIST ANTICOAGULANTS HEPARINTHROMBOPLASTIN TIME [id number] 06:10:00* Test Item Value Reference Range Comments THROMBOPLASTIN TIME PARTIAL (test code=PTT) 52.2 seconds 25.0-36.5 IS PATIENT ON ANTICOAGULANTS? YLIST ANTICOAGULANTS [id number] 05:54:00* Test Item Value Reference Range Comments GLUBED (test code=GLUBED) 78 mg/dL 74-106 Performed by certified veterinary x ray operator at [facility] CBC W/AUTO [id number] 05:25:00* Test Item Value Reference Range Comments WHITE BLOOD CELL (test code=WBC) 5.2 K/mm3 4.5-12.5 RED BLOOD CELL (test code=RBC) 3.84 mill/mm3 4.0-5.8 HEMOGLOBIN (test code=HGB) 8.3 gram/dL 13.0-17.5 HEMATOCRIT (test code=HCT) 29.4 % 42.0-52.0 MEAN CELL VOLUME (test code=MCV) 76.6 fL 80-98 MEAN CELL HGB (test code=MCH) 21.6 picogram 27.0-33.0 MEAN CELL HGB CONCETRATION (test code=MCHC) 28.2 gram/dL 33.0-36.0 RED CELL DISTRIBUTION WIDTH (test code=RDW) 18.8 % 11.6-16.2 RED CELL DISTRIBUTION WIDTH SD (test code=RDW-SD) 50.6 fL 37.0-51.0 PLATELET COUNT (test code=PLT) 187 K/mm3 150-450 MEAN PLATELET VOLUME (test code=MPV) 10.5 fL 6.7-11.0 NEUTROPHIL % (test code=NT%) 68.6 % 39.0-69.0 IMMATURE GRANULOCYTE % (test code=IG%) 1.7 % 0.0-5.0 LYMPHOCYTE % (test code=LY%) 12.7 % 25.0-55.0 MONOCYTE % (test code=MO%) 11.0 % 0.0-10.0 EOSINOPHIL % (test code=EO%) 5.6 % 0.0-5.0 BASOPHIL % (test code=BA%) 0.4 % 0.0-1.0 NUCLEATED RBC % (test code=NRBC%) 0.4 % 0-0 NEUTROPHIL # (test code=NT#) 3.57 K/mm3 1.8-7.7 IMMATURE GRANULOCYTE # (test code=IG#) 0.09 x10 3/uL 0-0.03 LYMPHOCYTE # (test code=LY#) 0.66 K/mm3 1.0-5.0 MONOCYTE # (test code=MO#) 0.57 K/mm3 0-0.8 EOSINOPHIL # (test code=EO#) 0.29 K/mm3 0.0-0.5 BASOPHIL # (test code=BA#) 0.02 K/mm3 0.0-0.2 NUCLEATED RBC # (test code=NRBC#) 0.02 K/mm3 0.0-0.1 MANUAL DIFF REQUIRED (test code=MDIFF) NO, ONLY SCAN NEEDED DIFFERENTIAL [id number] 05:25:00* Test Item Value Reference Range Comments STAIN ACCEPTABILITY (test code=STN ACCEPTABLE) STAIN ACCEPTABLE POIKILOCYTOSIS (test code=POIK) 2+ ANISOCYTOSIS (test code=ANISO) 2+ MICROCYTOSIS (test code=MICR) 2+ ELLIPTOCYTES (test code=ELL) 1+ PLATELET ESTIMATE (test code=PLTEST) ADEQUATE PLATELET MORPHOLOGY (test code=PLTMORPH) NORMAL [id number] 05:15:00* Test Item Value Reference Range Comments TROPONIN-I (test code=TROPI) 6.080 ng/mL 0-0.045 RESULT VERIFIED BY REPEAT ANALYSIS BASIC METABOLIC [id number] 05:08:00* Test Item Value Reference Range Comments SODIUM (test code=NA) 140 mmol/L 136-145 POTASSIUM (test code=K) 3.5 mmol/L 3.5-5.1 CHLORIDE (test code=CL) 104.0 mmol/L 98-107 CARBON DIOXIDE (test code=CO2) 30.0 mmol/L 21-32 ANION GAP (test code=GAP) 9.5 10-20 GLUCOSE (test code=GLU) 73 mg/dL 74-106 BLOOD UREA NITROGEN (test code=BUN) 21 mg/dL 7-18 GLOMERULAR FILTRATION RATE (test code=GFR) 41 mL/min >=60 Estimated GFR by using Modified MDRD formula.Chronic kidney disease is defined as either kidney damageor GFR <60 mL/min/1.73 m2 for >3 months. CREATININE (test code=CREAT) 1.70 mg/dL 0.7-1.3 BUN/CREATININE RATIO (test code=BUN/CREA) 12.4 10-20 CALCIUM (test code=CA) 8.5 mg/dL 8.5-10.1 [id number] 05:08:00* Test Item Value Reference Range Comments MAGNESIUM (test code=MAG) 2.1 mg/dL 1.8-2.4 CBC W/AUTO [id number] 04:41:00* Test Item Value Reference Range Comments WHITE BLOOD CELL (test code=WBC) 5.2 K/mm3 4.5-12.5 RED BLOOD CELL (test code=RBC) 3.84 mill/mm3 4.0-5.8 HEMOGLOBIN (test code=HGB) 8.3 gram/dL 13.0-17.5 HEMATOCRIT (test code=HCT) 29.4 % 42.0-52.0 MEAN CELL VOLUME (test code=MCV) 76.6 fL 80-98 MEAN CELL HGB (test code=MCH) 21.6 picogram 27.0-33.0 MEAN CELL HGB CONCETRATION (test code=MCHC) 28.2 gram/dL 33.0-36.0 RED CELL DISTRIBUTION WIDTH (test code=RDW) 18.8 % 11.6-16.2 RED CELL DISTRIBUTION WIDTH SD (test code=RDW-SD) 50.6 fL 37.0-51.0 PLATELET COUNT (test code=PLT) 187 K/mm3 150-450 MEAN PLATELET VOLUME (test code=MPV) 10.5 fL 6.7-11.0 NEUTROPHIL % (test code=NT%) 68.6 % 39.0-69.0 IMMATURE GRANULOCYTE % (test code=IG%) 1.7 % 0.0-5.0 LYMPHOCYTE % (test code=LY%) 12.7 % 25.0-55.0 MONOCYTE % (test code=MO%) 11.0 % 0.0-10.0 EOSINOPHIL % (test code=EO%) 5.6 % 0.0-5.0 BASOPHIL % (test code=BA%) 0.4 % 0.0-1.0 NUCLEATED RBC % (test code=NRBC%) 0.4 % 0-0 NEUTROPHIL # (test code=NT#) 3.57 K/mm3 1.8-7.7 IMMATURE GRANULOCYTE # (test code=IG#) 0.09 x10 3/uL 0-0.03 LYMPHOCYTE # (test code=LY#) 0.66 K/mm3 1.0-5.0 MONOCYTE # (test code=MO#) 0.57 K/mm3 0-0.8 EOSINOPHIL # (test code=EO#) 0.29 K/mm3 0.0-0.5 BASOPHIL # (test code=BA#) 0.02 K/mm3 0.0-0.2 NUCLEATED RBC # (test code=NRBC#) 0.02 K/mm3 0.0-0.1 MANUAL DIFF REQUIRED (test code=MDIFF) NO, ONLY SCAN NEEDED DIFFERENTIAL [id number] 04:41:00* Test Item Value Reference Range Comments STAIN ACCEPTABILITY (test code=STN ACCEPTABLE) CABOT RINGS (test code=CAB) MORPHOLOGY COMMENT (test code=MOC) PLATELET ESTIMATE (test code=PLTEST) PLATELET MORPHOLOGY (test code=PLTMORPH) CBC W/AUTO [id number] 04:41:00* Test Item Value Reference Range Comments WHITE BLOOD CELL (test code=WBC) 5.2 K/mm3 4.5-12.5 RED BLOOD CELL (test code=RBC) 3.84 mill/mm3 4.0-5.8 HEMOGLOBIN (test code=HGB) 8.3 gram/dL 13.0-17.5 HEMATOCRIT (test code=HCT) 29.4 % 42.0-52.0 MEAN CELL VOLUME (test code=MCV) 76.6 fL 80-98 MEAN CELL HGB (test code=MCH) 21.6 picogram 27.0-33.0 MEAN CELL HGB CONCETRATION (test code=MCHC) 28.2 gram/dL 33.0-36.0 RED CELL DISTRIBUTION WIDTH (test code=RDW) 18.8 % 11.6-16.2 RED CELL DISTRIBUTION WIDTH SD (test code=RDW-SD) 50.6 fL 37.0-51.0 PLATELET COUNT (test code=PLT) 187 K/mm3 150-450 MEAN PLATELET VOLUME (test code=MPV) 10.5 fL 6.7-11.0 NEUTROPHIL % (test code=NT%) 68.6 % 39.0-69.0 IMMATURE GRANULOCYTE % (test code=IG%) 1.7 % 0.0-5.0 LYMPHOCYTE % (test code=LY%) 12.7 % 25.0-55.0 MONOCYTE % (test code=MO%) 11.0 % 0.0-10.0 EOSINOPHIL % (test code=EO%) 5.6 % 0.0-5.0 BASOPHIL % (test code=BA%) 0.4 % 0.0-1.0 NUCLEATED RBC % (test code=NRBC%) 0.4 % 0-0 NEUTROPHIL # (test code=NT#) 3.57 K/mm3 1.8-7.7 IMMATURE GRANULOCYTE # (test code=IG#) 0.09 x10 3/uL 0-0.03 LYMPHOCYTE # (test code=LY#) 0.66 K/mm3 1.0-5.0 MONOCYTE # (test code=MO#) 0.57 K/mm3 0-0.8 EOSINOPHIL # (test code=EO#) 0.29 K/mm3 0.0-0.5 BASOPHIL # (test code=BA#) 0.02 K/mm3 0.0-0.2 NUCLEATED RBC # (test code=NRBC#) 0.02 K/mm3 0.0-0.1 MANUAL DIFF REQUIRED (test code=MDIFF) NO, ONLY SCAN NEEDED DIFFERENTIAL [id number] 04:41:00* Test Item Value Reference Range Comments STAIN ACCEPTABILITY (test code=STN ACCEPTABLE) CABOT RINGS (test code=CAB) MORPHOLOGY COMMENT (test code=MOC) PLATELET ESTIMATE (test code=PLTEST) PLATELET MORPHOLOGY (test code=PLTMORPH) CBC W/AUTO [id number] 04:41:00* Test Item Value Reference Range Comments WHITE BLOOD CELL (test code=WBC) 5.2 K/mm3 4.5-12.5 RED BLOOD CELL (test code=RBC) 3.84 mill/mm3 4.0-5.8 HEMOGLOBIN (test code=HGB) 8.3 gram/dL 13.0-17.5 HEMATOCRIT (test code=HCT) 29.4 % 42.0-52.0 MEAN CELL VOLUME (test code=MCV) 76.6 fL 80-98 MEAN CELL HGB (test code=MCH) 21.6 picogram 27.0-33.0 MEAN CELL HGB CONCETRATION (test code=MCHC) 28.2 gram/dL 33.0-36.0 RED CELL DISTRIBUTION WIDTH (test code=RDW) 18.8 % 11.6-16.2 RED CELL DISTRIBUTION WIDTH SD (test code=RDW-SD) 50.6 fL 37.0-51.0 PLATELET COUNT (test code=PLT) 187 K/mm3 150-450 MEAN PLATELET VOLUME (test code=MPV) 10.5 fL 6.7-11.0 NEUTROPHIL % (test code=NT%) 68.6 % 39.0-69.0 IMMATURE GRANULOCYTE % (test code=IG%) 1.7 % 0.0-5.0 LYMPHOCYTE % (test code=LY%) 12.7 % 25.0-55.0 MONOCYTE % (test code=MO%) 11.0 % 0.0-10.0 EOSINOPHIL % (test code=EO%) 5.6 % 0.0-5.0 BASOPHIL % (test code=BA%) 0.4 % 0.0-1.0 NUCLEATED RBC % (test code=NRBC%) 0.4 % 0-0 NEUTROPHIL # (test code=NT#) 3.57 K/mm3 1.8-7.7 IMMATURE GRANULOCYTE # (test code=IG#) 0.09 x10 3/uL 0-0.03 LYMPHOCYTE # (test code=LY#) 0.66 K/mm3 1.0-5.0 MONOCYTE # (test code=MO#) 0.57 K/mm3 0-0.8 EOSINOPHIL # (test code=EO#) 0.29 K/mm3 0.0-0.5 BASOPHIL # (test code=BA#) 0.02 K/mm3 0.0-0.2 NUCLEATED RBC # (test code=NRBC#) 0.02 K/mm3 0.0-0.1 MANUAL DIFF REQUIRED (test code=MDIFF) NO, ONLY SCAN NEEDED DIFFERENTIAL [id number] 04:41:00* Test Item Value Reference Range Comments STAIN ACCEPTABILITY (test code=STN ACCEPTABLE) MORPHOLOGY COMMENT (test code=MOC) PLATELET ESTIMATE (test code=PLTEST) PLATELET MORPHOLOGY (test code=PLTMORPH) CBC W/AUTO [id number] 04:41:00* Test Item Value Reference Range Comments WHITE BLOOD CELL (test code=WBC) 5.2 K/mm3 4.5-12.5 RED BLOOD CELL (test code=RBC) 3.84 mill/mm3 4.0-5.8 HEMOGLOBIN (test code=HGB) 8.3 gram/dL 13.0-17.5 HEMATOCRIT (test code=HCT) 29.4 % 42.0-52.0 MEAN CELL VOLUME (test code=MCV) 76.6 fL 80-98 MEAN CELL HGB (test code=MCH) 21.6 picogram 27.0-33.0 MEAN CELL HGB CONCETRATION (test code=MCHC) 28.2 gram/dL 33.0-36.0 RED CELL DISTRIBUTION WIDTH (test code=RDW) 18.8 % 11.6-16.2 RED CELL DISTRIBUTION WIDTH SD (test code=RDW-SD) 50.6 fL 37.0-51.0 PLATELET COUNT (test code=PLT) 187 K/mm3 150-450 MEAN PLATELET VOLUME (test code=MPV) 10.5 fL 6.7-11.0 NEUTROPHIL % (test code=NT%) 68.6 % 39.0-69.0 IMMATURE GRANULOCYTE % (test code=IG%) 1.7 % 0.0-5.0 LYMPHOCYTE % (test code=LY%) 12.7 % 25.0-55.0 MONOCYTE % (test code=MO%) 11.0 % 0.0-10.0 EOSINOPHIL % (test code=EO%) 5.6 % 0.0-5.0 BASOPHIL % (test code=BA%) 0.4 % 0.0-1.0 NUCLEATED RBC % (test code=NRBC%) 0.4 % 0-0 NEUTROPHIL # (test code=NT#) 3.57 K/mm3 1.8-7.7 IMMATURE GRANULOCYTE # (test code=IG#) 0.09 x10 3/uL 0-0.03 LYMPHOCYTE # (test code=LY#) 0.66 K/mm3 1.0-5.0 MONOCYTE # (test code=MO#) 0.57 K/mm3 0-0.8 EOSINOPHIL # (test code=EO#) 0.29 K/mm3 0.0-0.5 BASOPHIL # (test code=BA#) 0.02 K/mm3 0.0-0.2 NUCLEATED RBC # (test code=NRBC#) 0.02 K/mm3 0.0-0.1 MANUAL DIFF REQUIRED (test code=MDIFF) NO, ONLY SCAN NEEDED DIFFERENTIAL [id number] 04:41:00* Test Item Value Reference Range Comments STAIN ACCEPTABILITY (test code=STN ACCEPTABLE) CABOT RINGS (test code=CAB) MORPHOLOGY COMMENT (test code=MOC) PLATELET ESTIMATE (test code=PLTEST) PLATELET MORPHOLOGY (test code=PLTMORPH) THROMBOPLASTIN TIME [id number] 22:40:00* Test Item Value Reference Range Comments THROMBOPLASTIN TIME PARTIAL (test code=PTT) 49.0 seconds 25.0-36.5 IS PATIENT ON ANTICOAGULANTS? YLIST ANTICOAGULANTS [id number] 20:05:00* Test Item Value Reference Range Comments GLUBED (test code=GLUBED) 81 mg/dL 74-106 Performed by certified veterinary x ray operator at [facility] [id number] 17:04:00* Test Item Value Reference Range Comments GLUBED (test code=GLUBED) 100 mg/dL 74-106 Performed by certified veterinary x ray operator at [facility] THROMBOPLASTIN TIME [id number] 16:51:00* Test Item Value Reference Range Comments THROMBOPLASTIN TIME PARTIAL (test code=PTT) 50.5 seconds 25.0-36.5 IS PATIENT ON ANTICOAGULANTS? YLIST ANTICOAGULANTS HEPARINCOMMENTS TO PHLEBO TOMIST: DUE NOT DRAW FROM LEFT ARM. [id number] 15:10:00* Test Item Value Reference Range Comments TROPONIN-I (test code=TROPI) 8.450 ng/mL 0-0.045 [id number] 12:53:00* Test Item Value Reference Range Comments GLUBED (test code=GLUBED) 149 mg/dL 74-106 Performed by certified veterinary x ray operator at [facility] THROMBOPLASTIN TIME [id number] 10:52:00* Test Item Value Reference Range Comments THROMBOPLASTIN TIME PARTIAL (test code=PTT) 51.7 seconds 25.0-36.5 IS PATIENT ON ANTICOAGULANTS? YLIST ANTICOAGULANTS HEPARINCOMMENTS TO PHLEBO TOMIST: PLEASE DRAW FROM NON HEPARIN DRIP [id number] 2019-03-19 05:55:00* Test Item Value Reference Range Comments GLUBED (test code=GLUBED) 159 mg/dL 74-106 Performed by certified veterinary x ray operator at [facility] THROMBOPLASTIN TIME [id number] 04:50:00* Test Item Value Reference Range Comments THROMBOPLASTIN TIME PARTIAL (test code=PTT) 53.4 seconds 25.0-36.5 IS PATIENT ON ANTICOAGULANTS? YLIST ANTICOAGULANTS HEPARINCOMMENTS TO PHLEBO TOMIST: PLEASE DRAW FROM NON HEPARIN DRIP [id number] 2019-03-19 04:23:00* Test Item Value Reference Range Comments GLYCOSYLATED HEMOGLOBIN (HA1C) (test code=GLYHGB) 6.3 % HbA1 SUGGESTED DIAGNOSIS: HbA1C (%) Diabetic >6.4Prediabetes 5.7 - 6.4Normal <5.7 ESTIMATED AVERAGE GLUCOSE (test code=EAG) 134 MG/DL BASIC METABOLIC [id number] 04:23:00* Test Item Value Reference Range Comments SODIUM (test code=NA) 142 mmol/L 136-145 POTASSIUM (test code=K) 4.0 mmol/L 3.5-5.1 CHLORIDE (test code=CL) 104.0 mmol/L 98-107 CARBON DIOXIDE (test code=CO2) 32.0 mmol/L 21-32 ANION GAP (test code=GAP) 10.0 10-20 GLUCOSE (test code=GLU) 177 mg/dL 74-106 BLOOD UREA NITROGEN (test code=BUN) 15 mg/dL 7-18 GLOMERULAR FILTRATION RATE (test code=GFR) 47 mL/min >=60 Estimated GFR by using Modified MDRD formula.Chronic kidney disease is defined as either kidney damageor GFR <60 mL/min/1.73 m2 for >3 months. CREATININE (test code=CREAT) 1.50 mg/dL 0.7-1.3 BUN/CREATININE RATIO (test code=BUN/CREA) 10.0 10-20 CALCIUM (test code=CA) 8.7 mg/dL 8.5-10.1 FE W/TOTAL IRON BINDING CAP.2019-03-19 04:23:00* Test Item Value Reference Range Comments SERUM IRON (test code=IRON) 25 ug/dL 50-175 TOTAL IRON BINDING CAPACITY (test code=TIBC) 312 mcg/dL 250-450 IRON SATURATION (test code=FESAT) 8.01 % 13-45 THYROID STIMULATING [id number] 04:23:00* Test Item Value Reference Range Comments THYROID STIMULATING HORMONE (test code=TSH) 3.750 uIU/mL 0.36-3.74 TSH REFERENCE RANGES: EUTHYROID: 0.35 - 4.3 mIU/mL HYPO : > 5.5 mIU/mL HYPER : < 0.35 mIU/mL [id number] 04:23:00* Test Item Value Reference Range Comments FERRITIN (test code=EVELIN) 26 ng/mL 8-388 BASIC METABOLIC [id number] 04:07:00* Test Item Value Reference Range Comments SODIUM (test code=NA) 142 mmol/L 136-145 POTASSIUM (test code=K) 4.0 mmol/L 3.5-5.1 CHLORIDE (test code=CL) 104.0 mmol/L 98-107 CARBON DIOXIDE (test code=CO2) mmol/L 21-32 ANION GAP (test code=GAP) 10-20 GLUCOSE (test code=GLU) mg/dL 74-106 BLOOD UREA NITROGEN (test code=BUN) mg/dL 7-18 GLOMERULAR FILTRATION RATE (test code=GFR) mL/min >=60 CREATININE (test code=CREAT) mg/dL 0.7-1.3 BUN/CREATININE RATIO (test code=BUN/CREA) 10-20 CALCIUM (test code=CA) mg/dL 8.5-10.1 FE W/TOTAL IRON BINDING CAP.2019-03-19 04:07:00* Test Item Value Reference Range Comments SERUM IRON (test code=IRON) ug/dL 50-175 TOTAL IRON BINDING CAPACITY (test code=TIBC) mcg/dL 250-450 IRON SATURATION (test code=FESAT) % 13-45 THYROID STIMULATING [id number] 04:07:00* Test Item Value Reference Range Comments THYROID STIMULATING HORMONE (test code=TSH) uIU/mL 0.36-3.74 [id number] 04:07:00* Test Item Value Reference Range Comments FERRITIN (test code=EVELIN) ng/mL 8-388 CBC W/O [id number] 04:04:00* Test Item Value Reference Range Comments WHITE BLOOD CELL (test code=WBC) 7.8 K/mm3 4.5-12.5 RED BLOOD CELL (test code=RBC) 4.24 mill/mm3 4.0-5.8 HEMOGLOBIN (test code=HGB) 9.3 gram/dL 13.0-17.5 HEMATOCRIT (test code=HCT) 32.3 % 42.0-52.0 MEAN CELL VOLUME (test code=MCV) 76.2 fL 80-98 MEAN CELL HGB (test code=MCH) 21.9 picogram 27.0-33.0 MEAN CELL HGB CONCETRATION (test code=MCHC) 28.8 gram/dL 33.0-36.0 RED CELL DISTRIBUTION WIDTH (test code=RDW) 18.9 % 11.6-16.2 PLATELET COUNT (test code=PLT) 198 K/mm3 150-450 MEAN PLATELET VOLUME (test code=MPV) 10.3 fL 6.7-11.0 THROMBOPLASTIN TIME [id number] 21:55:00* Test Item Value Reference Range Comments THROMBOPLASTIN TIME PARTIAL (test code=PTT) 67.8 seconds 25.0-36.5 IS PATIENT ON ANTICOAGULANTS? YLIST ANTICOAGULANTS [id number] 20:57:00* Test Item Value Reference Range Comments GLUBED (test code=GLUBED) 188 mg/dL 74-106 Performed by certified veterinary x ray operator at [facility] COMPREHENSIVE METABOLIC [id number] 20:41:00* Test Item Value Reference Range Comments SODIUM (test code=NA) 141 mmol/L 136-145 POTASSIUM (test code=K) 4.1 mmol/L 3.5-5.1 CHLORIDE (test code=CL) 107.0 mmol/L 98-107 CARBON DIOXIDE (test code=CO2) 26.0 mmol/L 21-32 ANION GAP (test code=GAP) 12.1 10-20 GLUCOSE (test code=GLU) 161 mg/dL 74-106 BLOOD UREA NITROGEN (test code=BUN) 16 mg/dL 7-18 GLOMERULAR FILTRATION RATE (test code=GFR) 47 mL/min >=60 Estimated GFR by using Modified MDRD formula.Chronic kidney disease is defined as either kidney damageor GFR <60 mL/min/1.73 m2 for >3 months. CREATININE (test code=CREAT) 1.50 mg/dL 0.7-1.3 BUN/CREATININE RATIO (test code=BUN/CREA) 10.7 10-20 TOTAL PROTEIN (test code=PROT) 7.1 gram/dL 6.4-8.2 ALBUMIN (test code=ALB) 3.4 g/dL 3.4-5.0 GLOBULIN (test code=GLOB) 3.7 gram/dL 2.7-4.2 ALBUMIN/GLOBULIN RATIO (test code=A/G) 0.9 0.75-1.50 CALCIUM (test code=CA) 8.8 mg/dL 8.5-10.1 BILIRUBIN TOTAL (test code=BILT) 0.60 mg/dL 0.0-1.0 SGOT/AST (test code=AST) 92 IUnit/L 15-37 SGPT/ALT (test code=ALT) 31 IUnit/L 12-78 ALKALINE PHOSPHATASE TOTAL (test code=ALKP) 117 IUnit/L 45-117 Note change in reference range due to change in reagent. [id number] 20:41:00* Test Item Value Reference Range Comments PHOSPHORUS (test code=PHOS) 2.8 mg/dL 2.5-4.9 [id number] 20:41:00* Test Item Value Reference Range Comments MAGNESIUM (test code=MAG) 2.1 mg/dL 1.8-2.4 [id number] 20:41:00* Test Item Value Reference Range Comments TROPONIN-I (test code=TROPI) 8.030 ng/mL 0-0.045 Results called to [id number] by [email or web address] 03/18/19 2041Critical results verified and read back by Nurse? Y COMPREHENSIVE METABOLIC [id number] 19:36:00* Test Item Value Reference Range Comments SODIUM (test code=NA) 141 mmol/L 136-145 POTASSIUM (test code=K) 4.1 mmol/L 3.5-5.1 CHLORIDE (test code=CL) 107.0 mmol/L 98-107 CARBON DIOXIDE (test code=CO2) mmol/L 21-32 ANION GAP (test code=GAP) 10-20 GLUCOSE (test code=GLU) mg/dL 74-106 BLOOD UREA NITROGEN (test code=BUN) mg/dL 7-18 GLOMERULAR FILTRATION RATE (test code=GFR) mL/min >=60 CREATININE (test code=CREAT) mg/dL 0.7-1.3 BUN/CREATININE RATIO (test code=BUN/CREA) 10-20 TOTAL PROTEIN (test code=PROT) gram/dL 6.4-8.2 ALBUMIN (test code=ALB) g/dL 3.4-5.0 GLOBULIN (test code=GLOB) gram/dL 2.7-4.2 ALBUMIN/GLOBULIN RATIO (test code=A/G) 0.75-1.50 CALCIUM (test code=CA) mg/dL 8.5-10.1 BILIRUBIN TOTAL (test code=BILT) mg/dL 0.0-1.0 SGOT/AST (test code=AST) IUnit/L 15-37 SGPT/ALT (test code=ALT) IUnit/L 12-78 ALKALINE PHOSPHATASE TOTAL (test code=ALKP) IUnit/L 45-117 [id number] 19:36:00* Test Item Value Reference Range Comments PHOSPHORUS (test code=PHOS) mg/dL 2.5-4.9 [id number] 19:36:00* Test Item Value Reference Range Comments MAGNESIUM (test code=MAG) mg/dL 1.8-2.4 [id number] 19:36:00* Test Item Value Reference Range Comments TROPONIN-I (test code=TROPI) ng/mL 0-0.045 [id number] 17:18:00* Test Item Value Reference Range Comments GLUBED (test code=GLUBED) 161 mg/dL 74-106 Performed by certified veterinary x ray operator at [facility] [id number] 13:42:00* Test Item Value Reference Range Comments TROPONIN-I (test code=TROPI) 5.570 ng/mL 0-0.045 COMMENTS TO MANAGER CORPORATE RESPONSIBILITY: COLLECT 3 HOURS AFTER PREVIOUS SAMPLETHROMBOPLASTIN TIME [id number] 13:28:00* Test Item Value Reference Range Comments THROMBOPLASTIN TIME PARTIAL (test code=PTT) 37.5 seconds 25.0-36.5 IS PATIENT ON ANTICOAGULANTS? [id number] 13:23:00* Test Item Value Reference Range Comments HEMATOCRIT (test code=HCT) 32.8 % 42.0-52.0 PLATELET [id number] 13:23:00* Test Item Value Reference Range Comments PLATELET COUNT (test code=PLT) 213 K/mm3 150-450 [id number] 13:21:00* Test Item Value Reference Range Comments GLUBED (test code=GLUBED) 134 mg/dL 74-106 Performed by certified veterinary x ray operator at [facility] [id number] 13:17:00* Test Item Value Reference Range Comments GLUBED (test code=GLUBED) 127 mg/dL 74-106 Performed by certified veterinary x ray operator at [facility] [id number] 12:13:00* Test Item Value Reference Range Comments TROPONIN-I (test code=TROPI) 4.340 ng/mL 0-0.045 COMMENTS TO MANAGER CORPORATE RESPONSIBILITY: COLLECT 3 HOURS AFTER PREVIOUS [id number] 11:58:00* Test Item Value Reference Range Comments GLUBED (test code=GLUBED) 135 mg/dL 74-106 Performed by certified veterinary x ray operator at [facility] [id number] 08:18:00* Test Item Value Reference Range Comments GLUBED (test code=GLUBED) 174 mg/dL 74-106 Performed by certified veterinary x ray operator at [facility] [id number] 06:30:00* Test Item Value Reference Range Comments TROPONIN-I (test code=TROPI) 0.210 ng/mL 0-0.045 PREVIOUSLY CALLED COMPREHENSIVE METABOLIC [id number] 04:51:00* Test Item Value Reference Range Comments SODIUM (test code=NA) 143 mmol/L 136-145 POTASSIUM (test code=K) 3.5 mmol/L 3.5-5.1 CHLORIDE (test code=CL) 106.0 mmol/L 98-107 CARBON DIOXIDE (test code=CO2) 24.0 mmol/L 21-32 ANION GAP (test code=GAP) 16.5 10-20 GLUCOSE (test code=GLU) 289 mg/dL 74-106 BLOOD UREA NITROGEN (test code=BUN) 16 mg/dL 7-18 GLOMERULAR FILTRATION RATE (test code=GFR) 38 mL/min >=60 Estimated GFR by using Modified MDRD formula.Chronic kidney disease is defined as either kidney damageor GFR <60 mL/min/1.73 m2 for >3 months. CREATININE (test code=CREAT) 1.80 mg/dL 0.7-1.3 BUN/CREATININE RATIO (test code=BUN/CREA) 8.9 10-20 TOTAL PROTEIN (test code=PROT) 8.0 gram/dL 6.4-8.2 ALBUMIN (test code=ALB) 3.5 g/dL 3.4-5.0 GLOBULIN (test code=GLOB) 4.5 gram/dL 2.7-4.2 ALBUMIN/GLOBULIN RATIO (test code=A/G) 0.8 0.75-1.50 CALCIUM (test code=CA) 9.3 mg/dL 8.5-10.1 BILIRUBIN TOTAL (test code=BILT) 0.40 mg/dL 0.0-1.0 SGOT/AST (test code=AST) 15 IUnit/L 15-37 SGPT/ALT (test code=ALT) 28 IUnit/L 12-78 ALKALINE PHOSPHATASE TOTAL (test code=ALKP) 119 IUnit/L 45-117 Note change in reference range due to change in reagent. [id number] 04:51:00* Test Item Value Reference Range Comments TROPONIN-I (test code=TROPI) 0.059 ng/mL 0-0.045 Results called to [id number] by MARION1 03/18/19 0450Critical results verified and read back by Nurse? Y CBC W/AUTO [id number] 04:41:00* Test Item Value Reference Range Comments WHITE BLOOD CELL (test code=WBC) 10.6 K/mm3 4.5-12.5 RED BLOOD CELL (test code=RBC) 4.61 mill/mm3 4.0-5.8 HEMOGLOBIN (test code=HGB) 9.9 gram/dL 13.0-17.5 HEMATOCRIT (test code=HCT) 36.5 % 42.0-52.0 MEAN CELL VOLUME (test code=MCV) 79.2 fL 80-98 MEAN CELL HGB (test code=MCH) 21.5 picogram 27.0-33.0 MEAN CELL HGB CONCETRATION (test code=MCHC) 27.1 gram/dL 33.0-36.0 RED CELL DISTRIBUTION WIDTH (test code=RDW) 19.0 % 11.6-16.2 RED CELL DISTRIBUTION WIDTH SD (test code=RDW-SD) 51.9 fL 37.0-51.0 PLATELET COUNT (test code=PLT) 253 K/mm3 150-450 MEAN PLATELET VOLUME (test code=MPV) 10.8 fL 6.7-11.0 NEUTROPHIL % (test code=NT%) 77.8 % 39.0-69.0 IMMATURE GRANULOCYTE % (test code=IG%) 1.1 % 0.0-5.0 LYMPHOCYTE % (test code=LY%) 14.0 % 25.0-55.0 MONOCYTE % (test code=MO%) 5.8 % 0.0-10.0 EOSINOPHIL % (test code=EO%) 1.0 % 0.0-5.0 BASOPHIL % (test code=BA%) 0.3 % 0.0-1.0 NUCLEATED RBC % (test code=NRBC%) 0.0 % 0-0 NEUTROPHIL # (test code=NT#) 8.25 K/mm3 1.8-7.7 IMMATURE GRANULOCYTE # (test code=IG#) 0.12 x10 3/uL 0-0.03 LYMPHOCYTE # (test code=LY#) 1.48 K/mm3 1.0-5.0 MONOCYTE # (test code=MO#) 0.61 K/mm3 0-0.8 EOSINOPHIL # (test code=EO#) 0.11 K/mm3 0.0-0.5 BASOPHIL # (test code=BA#) 0.03 K/mm3 0.0-0.2 NUCLEATED RBC # (test code=NRBC#) 0.00 K/mm3 0.0-0.1 MANUAL DIFF REQUIRED (test code=MDIFF) NO, ONLY SCAN NEEDED DIFFERENTIAL [id number] 04:41:00* Test Item Value Reference Range Comments STAIN ACCEPTABILITY (test code=STN ACCEPTABLE) STAIN ACCEPTABLE POIKILOCYTOSIS (test code=POIK) 2+ ANISOCYTOSIS (test code=ANISO) 2+ MICROCYTOSIS (test code=MICR) 2+ KARL CELLS (test code=KARL) 1+ NONE OVALOCYTES (test code=OVAL) 2+ PLATELET ESTIMATE (test code=PLTEST) ADEQUATE PLATELET MORPHOLOGY (test code=PLTMORPH) NORMAL CBC W/AUTO [id number] 04:39:00* Test Item Value Reference Range Comments WHITE BLOOD CELL (test code=WBC) 10.6 K/mm3 4.5-12.5 RED BLOOD CELL (test code=RBC) 4.61 mill/mm3 4.0-5.8 HEMOGLOBIN (test code=HGB) 9.9 gram/dL 13.0-17.5 HEMATOCRIT (test code=HCT) 36.5 % 42.0-52.0 MEAN CELL VOLUME (test code=MCV) 79.2 fL 80-98 MEAN CELL HGB (test code=MCH) 21.5 picogram 27.0-33.0 MEAN CELL HGB CONCETRATION (test code=MCHC) 27.1 gram/dL 33.0-36.0 RED CELL DISTRIBUTION WIDTH (test code=RDW) 19.0 % 11.6-16.2 RED CELL DISTRIBUTION WIDTH SD (test code=RDW-SD) 51.9 fL 37.0-51.0 PLATELET COUNT (test code=PLT) 253 K/mm3 150-450 MEAN PLATELET VOLUME (test code=MPV) 10.8 fL 6.7-11.0 NEUTROPHIL % (test code=NT%) 77.8 % 39.0-69.0 IMMATURE GRANULOCYTE % (test code=IG%) 1.1 % 0.0-5.0 LYMPHOCYTE % (test code=LY%) 14.0 % 25.0-55.0 MONOCYTE % (test code=MO%) 5.8 % 0.0-10.0 EOSINOPHIL % (test code=EO%) 1.0 % 0.0-5.0 BASOPHIL % (test code=BA%) 0.3 % 0.0-1.0 NUCLEATED RBC % (test code=NRBC%) 0.0 % 0-0 NEUTROPHIL # (test code=NT#) 8.25 K/mm3 1.8-7.7 IMMATURE GRANULOCYTE # (test code=IG#) 0.12 x10 3/uL 0-0.03 LYMPHOCYTE # (test code=LY#) 1.48 K/mm3 1.0-5.0 MONOCYTE # (test code=MO#) 0.61 K/mm3 0-0.8 EOSINOPHIL # (test code=EO#) 0.11 K/mm3 0.0-0.5 BASOPHIL # (test code=BA#) 0.03 K/mm3 0.0-0.2 NUCLEATED RBC # (test code=NRBC#) 0.00 K/mm3 0.0-0.1 MANUAL DIFF REQUIRED (test code=MDIFF) NO, ONLY SCAN NEEDED DIFFERENTIAL [id number] 04:39:00* Test Item Value Reference Range Comments STAIN ACCEPTABILITY (test code=STN ACCEPTABLE) CABOT RINGS (test code=CAB) MORPHOLOGY COMMENT (test code=MOC) PLATELET ESTIMATE (test code=PLTEST) PLATELET MORPHOLOGY (test code=PLTMORPH) CBC W/AUTO [id number] 04:39:00* Test Item Value Reference Range Comments WHITE BLOOD CELL (test code=WBC) 10.6 K/mm3 4.5-12.5 RED BLOOD CELL (test code=RBC) 4.61 mill/mm3 4.0-5.8 HEMOGLOBIN (test code=HGB) 9.9 gram/dL 13.0-17.5 HEMATOCRIT (test code=HCT) 36.5 % 42.0-52.0 MEAN CELL VOLUME (test code=MCV) 79.2 fL 80-98 MEAN CELL HGB (test code=MCH) 21.5 picogram 27.0-33.0 MEAN CELL HGB CONCETRATION (test code=MCHC) 27.1 gram/dL 33.0-36.0 RED CELL DISTRIBUTION WIDTH (test code=RDW) 19.0 % 11.6-16.2 RED CELL DISTRIBUTION WIDTH SD (test code=RDW-SD) 51.9 fL 37.0-51.0 PLATELET COUNT (test code=PLT) 253 K/mm3 150-450 MEAN PLATELET VOLUME (test code=MPV) 10.8 fL 6.7-11.0 NEUTROPHIL % (test code=NT%) 77.8 % 39.0-69.0 IMMATURE GRANULOCYTE % (test code=IG%) 1.1 % 0.0-5.0 LYMPHOCYTE % (test code=LY%) 14.0 % 25.0-55.0 MONOCYTE % (test code=MO%) 5.8 % 0.0-10.0 EOSINOPHIL % (test code=EO%) 1.0 % 0.0-5.0 BASOPHIL % (test code=BA%) 0.3 % 0.0-1.0 NUCLEATED RBC % (test code=NRBC%) 0.0 % 0-0 NEUTROPHIL # (test code=NT#) 8.25 K/mm3 1.8-7.7 IMMATURE GRANULOCYTE # (test code=IG#) 0.12 x10 3/uL 0-0.03 LYMPHOCYTE # (test code=LY#) 1.48 K/mm3 1.0-5.0 MONOCYTE # (test code=MO#) 0.61 K/mm3 0-0.8 EOSINOPHIL # (test code=EO#) 0.11 K/mm3 0.0-0.5 BASOPHIL # (test code=BA#) 0.03 K/mm3 0.0-0.2 NUCLEATED RBC # (test code=NRBC#) 0.00 K/mm3 0.0-0.1 MANUAL DIFF REQUIRED (test code=MDIFF) NO, ONLY SCAN NEEDED DIFFERENTIAL [id number] 04:39:00* Test Item Value Reference Range Comments STAIN ACCEPTABILITY (test code=STN ACCEPTABLE) CABOT RINGS (test code=CAB) MORPHOLOGY COMMENT (test code=MOC) PLATELET ESTIMATE (test code=PLTEST) PLATELET MORPHOLOGY (test code=PLTMORPH) CBC W/AUTO [id number] 04:39:00* Test Item Value Reference Range Comments WHITE BLOOD CELL (test code=WBC) 10.6 K/mm3 4.5-12.5 RED BLOOD CELL (test code=RBC) 4.61 mill/mm3 4.0-5.8 HEMOGLOBIN (test code=HGB) 9.9 gram/dL 13.0-17.5 HEMATOCRIT (test code=HCT) 36.5 % 42.0-52.0 MEAN CELL VOLUME (test code=MCV) 79.2 fL 80-98 MEAN CELL HGB (test code=MCH) 21.5 picogram 27.0-33.0 MEAN CELL HGB CONCETRATION (test code=MCHC) 27.1 gram/dL 33.0-36.0 RED CELL DISTRIBUTION WIDTH (test code=RDW) 19.0 % 11.6-16.2 RED CELL DISTRIBUTION WIDTH SD (test code=RDW-SD) 51.9 fL 37.0-51.0 PLATELET COUNT (test code=PLT) 253 K/mm3 150-450 MEAN PLATELET VOLUME (test code=MPV) 10.8 fL 6.7-11.0 NEUTROPHIL % (test code=NT%) 77.8 % 39.0-69.0 IMMATURE GRANULOCYTE % (test code=IG%) 1.1 % 0.0-5.0 LYMPHOCYTE % (test code=LY%) 14.0 % 25.0-55.0 MONOCYTE % (test code=MO%) 5.8 % 0.0-10.0 EOSINOPHIL % (test code=EO%) 1.0 % 0.0-5.0 BASOPHIL % (test code=BA%) 0.3 % 0.0-1.0 NUCLEATED RBC % (test code=NRBC%) 0.0 % 0-0 NEUTROPHIL # (test code=NT#) 8.25 K/mm3 1.8-7.7 IMMATURE GRANULOCYTE # (test code=IG#) 0.12 x10 3/uL 0-0.03 LYMPHOCYTE # (test code=LY#) 1.48 K/mm3 1.0-5.0 MONOCYTE # (test code=MO#) 0.61 K/mm3 0-0.8 EOSINOPHIL # (test code=EO#) 0.11 K/mm3 0.0-0.5 BASOPHIL # (test code=BA#) 0.03 K/mm3 0.0-0.2 NUCLEATED RBC # (test code=NRBC#) 0.00 K/mm3 0.0-0.1 MANUAL DIFF REQUIRED (test code=MDIFF) NO, ONLY SCAN NEEDED DIFFERENTIAL [id number] 04:39:00* Test Item Value Reference Range Comments STAIN ACCEPTABILITY (test code=STN ACCEPTABLE) MORPHOLOGY COMMENT (test code=MOC) PLATELET ESTIMATE (test code=PLTEST) PLATELET MORPHOLOGY (test code=PLTMORPH) CBC W/AUTO [id number] 04:39:00* Test Item Value Reference Range Comments WHITE BLOOD CELL (test code=WBC) 10.6 K/mm3 4.5-12.5 RED BLOOD CELL (test code=RBC) 4.61 mill/mm3 4.0-5.8 HEMOGLOBIN (test code=HGB) 9.9 gram/dL 13.0-17.5 HEMATOCRIT (test code=HCT) 36.5 % 42.0-52.0 MEAN CELL VOLUME (test code=MCV) 79.2 fL 80-98 MEAN CELL HGB (test code=MCH) 21.5 picogram 27.0-33.0 MEAN CELL HGB CONCETRATION (test code=MCHC) 27.1 gram/dL 33.0-36.0 RED CELL DISTRIBUTION WIDTH (test code=RDW) 19.0 % 11.6-16.2 RED CELL DISTRIBUTION WIDTH SD (test code=RDW-SD) 51.9 fL 37.0-51.0 PLATELET COUNT (test code=PLT) 253 K/mm3 150-450 MEAN PLATELET VOLUME (test code=MPV) 10.8 fL 6.7-11.0 NEUTROPHIL % (test code=NT%) 77.8 % 39.0-69.0 IMMATURE GRANULOCYTE % (test code=IG%) 1.1 % 0.0-5.0 LYMPHOCYTE % (test code=LY%) 14.0 % 25.0-55.0 MONOCYTE % (test code=MO%) 5.8 % 0.0-10.0 EOSINOPHIL % (test code=EO%) 1.0 % 0.0-5.0 BASOPHIL % (test code=BA%) 0.3 % 0.0-1.0 NUCLEATED RBC % (test code=NRBC%) 0.0 % 0-0 NEUTROPHIL # (test code=NT#) 8.25 K/mm3 1.8-7.7 IMMATURE GRANULOCYTE # (test code=IG#) 0.12 x10 3/uL 0-0.03 LYMPHOCYTE # (test code=LY#) 1.48 K/mm3 1.0-5.0 MONOCYTE # (test code=MO#) 0.61 K/mm3 0-0.8 EOSINOPHIL # (test code=EO#) 0.11 K/mm3 0.0-0.5 BASOPHIL # (test code=BA#) 0.03 K/mm3 0.0-0.2 NUCLEATED RBC # (test code=NRBC#) 0.00 K/mm3 0.0-0.1 MANUAL DIFF REQUIRED (test code=MDIFF) NO, ONLY SCAN NEEDED DIFFERENTIAL [id number] 04:39:00* Test Item Value Reference Range Comments STAIN ACCEPTABILITY (test code=STN ACCEPTABLE) CABOT RINGS (test code=CAB) MORPHOLOGY COMMENT (test code=MOC) PLATELET ESTIMATE (test code=PLTEST) PLATELET MORPHOLOGY (test code=PLTMORPH) COMPREHENSIVE METABOLIC [id number] 04:34:00* Test Item Value Reference Range Comments SODIUM (test code=NA) 143 mmol/L 136-145 POTASSIUM (test code=K) 3.5 mmol/L 3.5-5.1 CHLORIDE (test code=CL) 106.0 mmol/L 98-107 CARBON DIOXIDE (test code=CO2) mmol/L 21-32 ANION GAP (test code=GAP) 10-20 GLUCOSE (test code=GLU) mg/dL 74-106 BLOOD UREA NITROGEN (test code=BUN) mg/dL 7-18 GLOMERULAR FILTRATION RATE (test code=GFR) mL/min >=60 CREATININE (test code=CREAT) mg/dL 0.7-1.3 BUN/CREATININE RATIO (test code=BUN/CREA) 10-20 TOTAL PROTEIN (test code=PROT) gram/dL 6.4-8.2 ALBUMIN (test code=ALB) g/dL 3.4-5.0 GLOBULIN (test code=GLOB) gram/dL 2.7-4.2 ALBUMIN/GLOBULIN RATIO (test code=A/G) 0.75-1.50 CALCIUM (test code=CA) mg/dL 8.5-10.1 BILIRUBIN TOTAL (test code=BILT) mg/dL 0.0-1.0 SGOT/AST (test code=AST) IUnit/L 15-37 SGPT/ALT (test code=ALT) IUnit/L 12-78 ALKALINE PHOSPHATASE TOTAL (test code=ALKP) IUnit/L 45-117 [id number] 04:34:00* Test Item Value Reference Range Comments TROPONIN-I (test code=TROPI) ng/mL 0-0.045 B-TYPE NATRIURETIC [id number] 20:54:00* Test Item Value Reference Range Comments B-TYPE NATRIURETIC PEPTIDE (test code=BNP) 760.18 pgram/mL 0-100 URINALYSIS [id number] 20:50:00* Test Item Value Reference Range Comments UA COLOR (test code=COLU) YELLOW YELLOW UA APPEARANCE (test code=APPU) CLEAR CLEAR UA GLUCOSE DIPSTICK (test code=DGLUU) 1000 (3+) mg/dL NEGATIVE UA BILIRUBIN DIPSTICK (test code=BILU) NEGATIVE mg/dL NEGATIVE UA KETONE DIPSTICK (test code=KETU) NEGATIVE mg/dL NEGATIVE UA SPECIFIC GRAVITY (test code=SGU) 1.021 1.001-1.035 UA BLOOD DIPSTICK (test code=RADHA) Negative mg/dL NEGATIVE UA PH DIPSTICK (test code=JAVIER) 6.0 5.0-8.0 UA PROTEIN DIPSTICK (test code=PROU) 20 (Trace) mg/dL NEGATIVE UA UROBILINIOGEN DIPSTICK (test code=URO) 8.0 (3+) mg/dL NEGATIVE UA NITRITE DIPSTICK (test code=LIVE) NEGATIVE NEGATIVE UA LEUKOCYTE ESTERASE W REFLEX (test code=LEUUR) NEGATIVE Bran/uL NEGATIVE UA WBC (test code=WBCU) 0-5 per HPF 0-5 UA RBC (test code=RBCU) 0-2 #/HPF 0-5 UA EPITHELIAL CELLS (test code=EPIU) FEW per HPF FEW UA BACTERIA (test code=BACU) FEW #/HPF NONE Urine Source? Clean CatchPROTHROMBIN [id number] 20:45:00* Test Item Value Reference Range Comments PROTHROMBIN TIME PATIENT (test code=PTP) 13.3 seconds 9.0-14.0 INTERNATIONAL NORMAL RATIO (test code=INR) 1.1 0.8-1.2 The therapeutic range for oral anticoagulant therapy formost indications is an international normalized ratio (INR)of between 2.0 and 3.0. The recommended therapeutic INRrange for various clinical situations is listed below: Clinical Situation INR range Pulmonary e mbolism treatment (2.0-3.0)Venous thrombosis treatmentVenous thrombosis prophylaxis (high risk surgery)Prevention of systemic embolism from: Acute myocardial infarction Valvular heart disease Atrial fibrillation Mechanical prosthetic heart valves (2.5-3.5) IS PATIENT ON ANTICOAGULANTS? NTHROMBOPLASTIN TIME [id number] 20:45:00* Test Item Value Reference Range Comments THROMBOPLASTIN TIME PARTIAL (test code=PTT) 38.6 seconds 25.0-36.5 IS PATIENT ON ANTICOAGULANTS? NBASIC METABOLIC [id number] 20:37:00* Test Item Value Reference Range Comments SODIUM (test code=NA) 140 mmol/L 136-145 POTASSIUM (test code=K) 3.8 mmol/L 3.5-5.1 CHLORIDE (test code=CL) 102.0 mmol/L 98-107 CARBON DIOXIDE (test code=CO2) 32.0 mmol/L 21-32 ANION GAP (test code=GAP) 9.8 10-20 GLUCOSE (test code=GLU) 169 mg/dL 74-106 BLOOD UREA NITROGEN (test code=BUN) 16 mg/dL 7-18 GLOMERULAR FILTRATION RATE (test code=GFR) 44 mL/min >=60 Estimated GFR by using Modified MDRD formula.Chronic kidney disease is defined as either kidney damageor GFR <60 mL/min/1.73 m2 for >3 months. CREATININE (test code=CREAT) 1.60 mg/dL 0.7-1.3 BUN/CREATININE RATIO (test code=BUN/CREA) 10.0 10-20 CALCIUM (test code=CA) 8.9 mg/dL 8.5-10.1 HEPATIC FUNCTION [id number] 20:37:00* Test Item Value Reference Range Comments TOTAL PROTEIN (test code=PROT) 7.4 gram/dL 6.4-8.2 ALBUMIN (test code=ALB) 3.2 g/dL 3.4-5.0 GLOBULIN (test code=GLOB) 4.2 gram/dL 2.7-4.2 ALBUMIN/GLOBULIN RATIO (test code=A/G) 0.8 0.75-1.50 BILIRUBIN TOTAL (test code=BILT) 0.40 mg/dL 0.0-1.0 BILIRUBIN DIRECT (test code=BILD) 0.19 mg/dL 0.0-0.20 SGOT/AST (test code=AST) 18 IUnit/L 15-37 SGPT/ALT (test code=ALT) 25 IUnit/L 12-78 ALKALINE PHOSPHATASE TOTAL (test code=ALKP) 115 IUnit/L 45-117 Note change in reference range due to change in reagent. [id number] 20:37:00* Test Item Value Reference Range Comments LIPASE (test code=LIP) 57 U/L 73.0-393.0 [id number] 20:37:00* Test Item Value Reference Range Comments TROPONIN-I (test code=TROPI) 0.030 ng/mL 0-0.045 URINALYSIS [id number] 20:37:00* Test Item Value Reference Range Comments UA COLOR (test code=COLU) YELLOW YELLOW UA APPEARANCE (test code=APPU) CLEAR CLEAR UA GLUCOSE DIPSTICK (test code=DGLUU) 1000 (3+) mg/dL NEGATIVE UA BILIRUBIN DIPSTICK (test code=BILU) NEGATIVE mg/dL NEGATIVE UA KETONE DIPSTICK (test code=KETU) NEGATIVE mg/dL NEGATIVE UA SPECIFIC GRAVITY (test code=SGU) 1.021 1.001-1.035 UA BLOOD DIPSTICK (test code=RADHA) Negative mg/dL NEGATIVE UA PH DIPSTICK (test code=JAVIER) 6.0 5.0-8.0 UA PROTEIN DIPSTICK (test code=PROU) 20 (Trace) mg/dL NEGATIVE UA UROBILINIOGEN DIPSTICK (test code=URO) 8.0 (3+) mg/dL NEGATIVE UA NITRITE DIPSTICK (test code=LIVE) NEGATIVE NEGATIVE UA LEUKOCYTE ESTERASE W REFLEX (test code=LEUUR) NEGATIVE Bran/uL NEGATIVE UA WBC (test code=WBCU) 0-5 per HPF 0-5 UA RBC (test code=RBCU) 0-2 #/HPF 0-5 UA EPITHELIAL CELLS (test code=EPIU) per HPF Few UA BACTERIA (test code=BACU) per HPF NONE Urine Source? Clean CatchCBC W/O [id number] 20:28:00* Test Item Value Reference Range Comments WHITE BLOOD CELL (test code=WBC) 5.5 K/mm3 4.5-12.5 RED BLOOD CELL (test code=RBC) 3.95 mill/mm3 4.0-5.8 HEMOGLOBIN (test code=HGB) 8.6 gram/dL 13.0-17.5 HEMATOCRIT (test code=HCT) 30.5 % 42.0-52.0 MEAN CELL VOLUME (test code=MCV) 77.2 fL 80-98 MEAN CELL HGB (test code=MCH) 21.8 picogram 27.0-33.0 MEAN CELL HGB CONCETRATION (test code=MCHC) 28.2 gram/dL 33.0-36.0 RED CELL DISTRIBUTION WIDTH (test code=RDW) 18.2 % 11.6-16.2 PLATELET COUNT (test code=PLT) 170 K/mm3 150-450 MEAN PLATELET VOLUME (test code=MPV) 10.5 fL 6.7-11.0 BASIC METABOLIC [id number] 20:27:00* Test Item Value Reference Range Comments SODIUM (test code=NA) 140 mmol/L 136-145 POTASSIUM (test code=K) 3.8 mmol/L 3.5-5.1 CHLORIDE (test code=CL) 102.0 mmol/L 98-107 CARBON DIOXIDE (test code=CO2) mmol/L 21-32 ANION GAP (test code=GAP) 10-20 GLUCOSE (test code=GLU) mg/dL 74-106 BLOOD UREA NITROGEN (test code=BUN) mg/dL 7-18 GLOMERULAR FILTRATION RATE (test code=GFR) mL/min >=60 CREATININE (test code=CREAT) mg/dL 0.7-1.3 BUN/CREATININE RATIO (test code=BUN/CREA) 10-20 CALCIUM (test code=CA) mg/dL 8.5-10.1 HEPATIC FUNCTION [id number] 20:27:00* Test Item Value Reference Range Comments TOTAL PROTEIN (test code=PROT) gram/dL 6.4-8.2 ALBUMIN (test code=ALB) g/dL 3.4-5.0 GLOBULIN (test code=GLOB) gram/dL 2.7-4.2 ALBUMIN/GLOBULIN RATIO (test code=A/G) 0.75-1.50 BILIRUBIN TOTAL (test code=BILT) mg/dL 0.0-1.0 BILIRUBIN DIRECT (test code=BILD) mg/dL 0.0-0.20 SGOT/AST (test code=AST) IUnit/L 15-37 SGPT/ALT (test code=ALT) IUnit/L 12-78 ALKALINE PHOSPHATASE TOTAL (test code=ALKP) IUnit/L 45-117 [id number] 20:27:00* Test Item Value Reference Range Comments LIPASE (test code=LIP) U/L 73.0-393.0 [id number] 20:27:00* Test Item Value Reference Range Comments TROPONIN-I (test code=TROPI) ng/mL 0-0.045 - XR CHEST 1 [id number] 19:20:00 FAX: Chemo San MD [place]: St: REG Name: REJI OLSON [facility] : [birth year] Age/S: 63/M [address] [facility] Unit #: [id number] Loc: [place] [address] Phys: Chemo San MD Acct: [id number] Dis Date: Status: REG ER PHONE #: [phone] Exam Date: 03/17/20191909 FAX #: [phone] Reason: ABDOMINAL PAIN EXAMS: CPT CODE: [id number] XR CHEST 1 V [id number] REASON FOR EXAM: ABDOMINAL PAIN Exam Order Date: 03/17/2019 6:54 PM Ordering M.D .: Chemo San MD PROCEDURE: - XR CHEST 1 V COMPAR YASH: CT chest March 13, 2019 FINDINGS: The lungs are c lear. There is no pleural effusion or pneumothorax. Pulmonary vascularity is within normal limits. Cardiac mediastinal silhouette is promin ent. 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 There is a left subclavian AICD with the leads terminating in the right atrium. There a re degenerative changes in the spine and the bilateral acromioclavicular j oints. The visualized upper abdomen is within normal limits. IMPRESSION: No acute cardiopulmonary process. Location: [facility] at [address] Reported and signed by: Tony Earl CC: Chemo San [facility]: Bianka Soliz(Trisha) Trnscrd Date/Time/B y: 03/17/2019 (1919) : By: [email or web address] Orig Print D/T: S: 03/17/2019 (84 67) PAGE 1 Signed Report [id number] 17:09:00* Test Item Value Reference Range Comments GLUBED (test code=GLUBED) 104 mg/dL 74-106 Performed by certified veterinary x ray operator at [facility] [id number] 12:06:00* Test Item Value Reference Range Comments GLUBED (test code=GLUBED) 117 mg/dL 74-106 Performed by certified veterinary x ray operator at [facility] [id number] 06:10:00* Test Item Value Reference Range Comments GLUBED (test code=GLUBED) 134 mg/dL 74-106 Performed by certified veterinary x ray operator at [facility] [id number] 20:34:00* Test Item Value Reference Range Comments GLUBED (test code=GLUBED) 151 mg/dL 74-106 Performed by certified veterinary x ray operator at [facility] [id number] 16:37:00* Test Item Value Reference Range Comments GLUBED (test code=GLUBED) 143 mg/dL 74-106 Performed by certified veterinary x ray operator at [facility] [id number] 13:18:00* Test Item Value Reference Range Comments GLUBED (test code=GLUBED) 105 mg/dL 74-106 Performed by certified veterinary x ray operator at [facility] [id number] 06:01:00* Test Item Value Reference Range Comments GLUBED (test code=GLUBED) 131 mg/dL 74-106 Performed by certified veterinary x ray operator at [facility] CBC W/AUTO [id number] 05:57:00* Test Item Value Reference Range Comments WHITE BLOOD CELL (test code=WBC) 5.3 K/mm3 4.5-12.5 RED BLOOD CELL (test code=RBC) 4.60 mill/mm3 4.0-5.8 HEMOGLOBIN (test code=HGB) 9.9 gram/dL 13.0-17.5 HEMATOCRIT (test code=HCT) 34.5 % 42.0-52.0 MEAN CELL VOLUME (test code=MCV) 75.0 fL 80-98 MEAN CELL HGB (test code=MCH) 21.5 picogram 27.0-33.0 MEAN CELL HGB CONCETRATION (test code=MCHC) 28.7 gram/dL 33.0-36.0 RED CELL DISTRIBUTION WIDTH (test code=RDW) 17.9 % 11.6-16.2 RED CELL DISTRIBUTION WIDTH SD (test code=RDW-SD) 47.9 fL 37.0-51.0 PLATELET COUNT (test code=PLT) 197 K/mm3 150-450 MEAN PLATELET VOLUME (test code=MPV) 10.4 fL 6.7-11.0 NEUTROPHIL % (test code=NT%) 62.7 % 39.0-69.0 IMMATURE GRANULOCYTE % (test code=IG%) 0.6 % 0.0-5.0 LYMPHOCYTE % (test code=LY%) 22.1 % 25.0-55.0 MONOCYTE % (test code=MO%) 7.4 % 0.0-10.0 EOSINOPHIL % (test code=EO%) 6.4 % 0.0-5.0 BASOPHIL % (test code=BA%) 0.8 % 0.0-1.0 NUCLEATED RBC % (test code=NRBC%) 0.0 % 0-0 NEUTROPHIL # (test code=NT#) 3.33 K/mm3 1.8-7.7 IMMATURE GRANULOCYTE # (test code=IG#) 0.03 x10 3/uL 0-0.03 LYMPHOCYTE # (test code=LY#) 1.17 K/mm3 1.0-5.0 MONOCYTE # (test code=MO#) 0.39 K/mm3 0-0.8 EOSINOPHIL # (test code=EO#) 0.34 K/mm3 0.0-0.5 BASOPHIL # (test code=BA#) 0.04 K/mm3 0.0-0.2 NUCLEATED RBC # (test code=NRBC#) 0.00 K/mm3 0.0-0.1 MANUAL DIFF REQUIRED (test code=MDIFF) NO, ONLY SCAN NEEDED DIFFERENTIAL [id number] 05:57:00* Test Item Value Reference Range Comments STAIN ACCEPTABILITY (test code=STN ACCEPTABLE) STAIN ACCEPTABLE POLYCHROMASIA (test code=POLC) 1+ HYPOCHROMIA (test code=HYPO) 1+ POIKILOCYTOSIS (test code=POIK) 1+ ANISOCYTOSIS (test code=ANISO) 2+ MICROCYTOSIS (test code=MICR) 2+ ELLIPTOCYTES (test code=ELL) 1+ PLATELET ESTIMATE (test code=PLTEST) ADEQUATE PLATELET MORPHOLOGY (test code=PLTMORPH) NORMAL BASIC METABOLIC [id number] 05:30:00* Test Item Value Reference Range Comments SODIUM (test code=NA) 141 mmol/L 136-145 POTASSIUM (test code=K) 4.1 mmol/L 3.5-5.1 CHLORIDE (test code=CL) 104.0 mmol/L 98-107 CARBON DIOXIDE (test code=CO2) 32.0 mmol/L 21-32 ANION GAP (test code=GAP) 9.1 10-20 GLUCOSE (test code=GLU) 138 mg/dL 74-106 BLOOD UREA NITROGEN (test code=BUN) 19 mg/dL 7-18 GLOMERULAR FILTRATION RATE (test code=GFR) 38 mL/min >=60 Estimated GFR by using Modified MDRD formula.Chronic kidney disease is defined as either kidney damageor GFR <60 mL/min/1.73 m2 for >3 months. CREATININE (test code=CREAT) 1.80 mg/dL 0.7-1.3 BUN/CREATININE RATIO (test code=BUN/CREA) 10.6 10-20 CALCIUM (test code=CA) 9.1 mg/dL 8.5-10.1 [id number] 05:30:00* Test Item Value Reference Range Comments MAGNESIUM (test code=MAG) 2.1 mg/dL 1.8-2.4 BASIC METABOLIC [id number] 05:20:00* Test Item Value Reference Range Comments SODIUM (test code=NA) 141 mmol/L 136-145 POTASSIUM (test code=K) 4.1 mmol/L 3.5-5.1 CHLORIDE (test code=CL) 104.0 mmol/L 98-107 CARBON DIOXIDE (test code=CO2) mmol/L 21-32 ANION GAP (test code=GAP) 10-20 GLUCOSE (test code=GLU) mg/dL 74-106 BLOOD UREA NITROGEN (test code=BUN) mg/dL 7-18 GLOMERULAR FILTRATION RATE (test code=GFR) mL/min >=60 CREATININE (test code=CREAT) mg/dL 0.7-1.3 BUN/CREATININE RATIO (test code=BUN/CREA) 10-20 CALCIUM (test code=CA) mg/dL 8.5-10.1 [id number] 05:20:00* Test Item Value Reference Range Comments MAGNESIUM (test code=MAG) mg/dL 1.8-2.4 CBC W/AUTO [id number] 05:15:00* Test Item Value Reference Range Comments WHITE BLOOD CELL (test code=WBC) 5.3 K/mm3 4.5-12.5 RED BLOOD CELL (test code=RBC) 4.60 mill/mm3 4.0-5.8 HEMOGLOBIN (test code=HGB) 9.9 gram/dL 13.0-17.5 HEMATOCRIT (test code=HCT) 34.5 % 42.0-52.0 MEAN CELL VOLUME (test code=MCV) 75.0 fL 80-98 MEAN CELL HGB (test code=MCH) 21.5 picogram 27.0-33.0 MEAN CELL HGB CONCETRATION (test code=MCHC) 28.7 gram/dL 33.0-36.0 RED CELL DISTRIBUTION WIDTH (test code=RDW) 17.9 % 11.6-16.2 RED CELL DISTRIBUTION WIDTH SD (test code=RDW-SD) 47.9 fL 37.0-51.0 PLATELET COUNT (test code=PLT) 197 K/mm3 150-450 MEAN PLATELET VOLUME (test code=MPV) 10.4 fL 6.7-11.0 NEUTROPHIL % (test code=NT%) 62.7 % 39.0-69.0 IMMATURE GRANULOCYTE % (test code=IG%) 0.6 % 0.0-5.0 LYMPHOCYTE % (test code=LY%) 22.1 % 25.0-55.0 MONOCYTE % (test code=MO%) 7.4 % 0.0-10.0 EOSINOPHIL % (test code=EO%) 6.4 % 0.0-5.0 BASOPHIL % (test code=BA%) 0.8 % 0.0-1.0 NUCLEATED RBC % (test code=NRBC%) 0.0 % 0-0 NEUTROPHIL # (test code=NT#) 3.33 K/mm3 1.8-7.7 IMMATURE GRANULOCYTE # (test code=IG#) 0.03 x10 3/uL 0-0.03 LYMPHOCYTE # (test code=LY#) 1.17 K/mm3 1.0-5.0 MONOCYTE # (test code=MO#) 0.39 K/mm3 0-0.8 EOSINOPHIL # (test code=EO#) 0.34 K/mm3 0.0-0.5 BASOPHIL # (test code=BA#) 0.04 K/mm3 0.0-0.2 NUCLEATED RBC # (test code=NRBC#) 0.00 K/mm3 0.0-0.1 MANUAL DIFF REQUIRED (test code=MDIFF) NO, ONLY SCAN NEEDED DIFFERENTIAL [id number] 05:15:00* Test Item Value Reference Range Comments STAIN ACCEPTABILITY (test code=STN ACCEPTABLE) CABOT RINGS (test code=CAB) MORPHOLOGY COMMENT (test code=MOC) PLATELET ESTIMATE (test code=PLTEST) PLATELET MORPHOLOGY (test code=PLTMORPH) CBC W/AUTO [id number] 05:15:00* Test Item Value Reference Range Comments WHITE BLOOD CELL (test code=WBC) 5.3 K/mm3 4.5-12.5 RED BLOOD CELL (test code=RBC) 4.60 mill/mm3 4.0-5.8 HEMOGLOBIN (test code=HGB) 9.9 gram/dL 13.0-17.5 HEMATOCRIT (test code=HCT) 34.5 % 42.0-52.0 MEAN CELL VOLUME (test code=MCV) 75.0 fL 80-98 MEAN CELL HGB (test code=MCH) 21.5 picogram 27.0-33.0 MEAN CELL HGB CONCETRATION (test code=MCHC) 28.7 gram/dL 33.0-36.0 RED CELL DISTRIBUTION WIDTH (test code=RDW) 17.9 % 11.6-16.2 RED CELL DISTRIBUTION WIDTH SD (test code=RDW-SD) 47.9 fL 37.0-51.0 PLATELET COUNT (test code=PLT) 197 K/mm3 150-450 MEAN PLATELET VOLUME (test code=MPV) 10.4 fL 6.7-11.0 NEUTROPHIL % (test code=NT%) 62.7 % 39.0-69.0 IMMATURE GRANULOCYTE % (test code=IG%) 0.6 % 0.0-5.0 LYMPHOCYTE % (test code=LY%) 22.1 % 25.0-55.0 MONOCYTE % (test code=MO%) 7.4 % 0.0-10.0 EOSINOPHIL % (test code=EO%) 6.4 % 0.0-5.0 BASOPHIL % (test code=BA%) 0.8 % 0.0-1.0 NUCLEATED RBC % (test code=NRBC%) 0.0 % 0-0 NEUTROPHIL # (test code=NT#) 3.33 K/mm3 1.8-7.7 IMMATURE GRANULOCYTE # (test code=IG#) 0.03 x10 3/uL 0-0.03 LYMPHOCYTE # (test code=LY#) 1.17 K/mm3 1.0-5.0 MONOCYTE # (test code=MO#) 0.39 K/mm3 0-0.8 EOSINOPHIL # (test code=EO#) 0.34 K/mm3 0.0-0.5 BASOPHIL # (test code=BA#) 0.04 K/mm3 0.0-0.2 NUCLEATED RBC # (test code=NRBC#) 0.00 K/mm3 0.0-0.1 MANUAL DIFF REQUIRED (test code=MDIFF) NO, ONLY SCAN NEEDED DIFFERENTIAL [id number] 05:15:00* Test Item Value Reference Range Comments STAIN ACCEPTABILITY (test code=STN ACCEPTABLE) CABOT RINGS (test code=CAB) MORPHOLOGY COMMENT (test code=MOC) PLATELET ESTIMATE (test code=PLTEST) PLATELET MORPHOLOGY (test code=PLTMORPH) CBC W/AUTO [id number] 05:15:00* Test Item Value Reference Range Comments WHITE BLOOD CELL (test code=WBC) 5.3 K/mm3 4.5-12.5 RED BLOOD CELL (test code=RBC) 4.60 mill/mm3 4.0-5.8 HEMOGLOBIN (test code=HGB) 9.9 gram/dL 13.0-17.5 HEMATOCRIT (test code=HCT) 34.5 % 42.0-52.0 MEAN CELL VOLUME (test code=MCV) 75.0 fL 80-98 MEAN CELL HGB (test code=MCH) 21.5 picogram 27.0-33.0 MEAN CELL HGB CONCETRATION (test code=MCHC) 28.7 gram/dL 33.0-36.0 RED CELL DISTRIBUTION WIDTH (test code=RDW) 17.9 % 11.6-16.2 RED CELL DISTRIBUTION WIDTH SD (test code=RDW-SD) 47.9 fL 37.0-51.0 PLATELET COUNT (test code=PLT) 197 K/mm3 150-450 MEAN PLATELET VOLUME (test code=MPV) 10.4 fL 6.7-11.0 NEUTROPHIL % (test code=NT%) 62.7 % 39.0-69.0 IMMATURE GRANULOCYTE % (test code=IG%) 0.6 % 0.0-5.0 LYMPHOCYTE % (test code=LY%) 22.1 % 25.0-55.0 MONOCYTE % (test code=MO%) 7.4 % 0.0-10.0 EOSINOPHIL % (test code=EO%) 6.4 % 0.0-5.0 BASOPHIL % (test code=BA%) 0.8 % 0.0-1.0 NUCLEATED RBC % (test code=NRBC%) 0.0 % 0-0 NEUTROPHIL # (test code=NT#) 3.33 K/mm3 1.8-7.7 IMMATURE GRANULOCYTE # (test code=IG#) 0.03 x10 3/uL 0-0.03 LYMPHOCYTE # (test code=LY#) 1.17 K/mm3 1.0-5.0 MONOCYTE # (test code=MO#) 0.39 K/mm3 0-0.8 EOSINOPHIL # (test code=EO#) 0.34 K/mm3 0.0-0.5 BASOPHIL # (test code=BA#) 0.04 K/mm3 0.0-0.2 NUCLEATED RBC # (test code=NRBC#) 0.00 K/mm3 0.0-0.1 MANUAL DIFF REQUIRED (test code=MDIFF) NO, ONLY SCAN NEEDED DIFFERENTIAL [id number] 05:15:00* Test Item Value Reference Range Comments STAIN ACCEPTABILITY (test code=STN ACCEPTABLE) MORPHOLOGY COMMENT (test code=MOC) PLATELET ESTIMATE (test code=PLTEST) PLATELET MORPHOLOGY (test code=PLTMORPH) CBC W/AUTO [id number] 05:15:00* Test Item Value Reference Range Comments WHITE BLOOD CELL (test code=WBC) 5.3 K/mm3 4.5-12.5 RED BLOOD CELL (test code=RBC) 4.60 mill/mm3 4.0-5.8 HEMOGLOBIN (test code=HGB) 9.9 gram/dL 13.0-17.5 HEMATOCRIT (test code=HCT) 34.5 % 42.0-52.0 MEAN CELL VOLUME (test code=MCV) 75.0 fL 80-98 MEAN CELL HGB (test code=MCH) 21.5 picogram 27.0-33.0 MEAN CELL HGB CONCETRATION (test code=MCHC) 28.7 gram/dL 33.0-36.0 RED CELL DISTRIBUTION WIDTH (test code=RDW) 17.9 % 11.6-16.2 RED CELL DISTRIBUTION WIDTH SD (test code=RDW-SD) 47.9 fL 37.0-51.0 PLATELET COUNT (test code=PLT) 197 K/mm3 150-450 MEAN PLATELET VOLUME (test code=MPV) 10.4 fL 6.7-11.0 NEUTROPHIL % (test code=NT%) 62.7 % 39.0-69.0 IMMATURE GRANULOCYTE % (test code=IG%) 0.6 % 0.0-5.0 LYMPHOCYTE % (test code=LY%) 22.1 % 25.0-55.0 MONOCYTE % (test code=MO%) 7.4 % 0.0-10.0 EOSINOPHIL % (test code=EO%) 6.4 % 0.0-5.0 BASOPHIL % (test code=BA%) 0.8 % 0.0-1.0 NUCLEATED RBC % (test code=NRBC%) 0.0 % 0-0 NEUTROPHIL # (test code=NT#) 3.33 K/mm3 1.8-7.7 IMMATURE GRANULOCYTE # (test code=IG#) 0.03 x10 3/uL 0-0.03 LYMPHOCYTE # (test code=LY#) 1.17 K/mm3 1.0-5.0 MONOCYTE # (test code=MO#) 0.39 K/mm3 0-0.8 EOSINOPHIL # (test code=EO#) 0.34 K/mm3 0.0-0.5 BASOPHIL # (test code=BA#) 0.04 K/mm3 0.0-0.2 NUCLEATED RBC # (test code=NRBC#) 0.00 K/mm3 0.0-0.1 MANUAL DIFF REQUIRED (test code=MDIFF) NO, ONLY SCAN NEEDED DIFFERENTIAL [id number] 05:15:00* Test Item Value Reference Range Comments STAIN ACCEPTABILITY (test code=STN ACCEPTABLE) CABOT RINGS (test code=CAB) MORPHOLOGY COMMENT (test code=MOC) PLATELET ESTIMATE (test code=PLTEST) PLATELET MORPHOLOGY (test code=PLTMORPH) [id number] 21:07:00* Test Item Value Reference Range Comments GLUBED (test code=GLUBED) 114 mg/dL 74-106 Performed by certified veterinary x ray operator at [facility] [id number] 17:26:00* Test Item Value Reference Range Comments GLUBED (test code=GLUBED) 150 mg/dL 74-106 Performed by certified veterinary x ray operator at [facility] - PULM VENT PERF [id number] 13:35:00 FAX: Allison Kapoor MD [phone] [place]: St: [facility] FAX: Richy Nj MD Name: REJI BARRETT [facility] : 1955 Age/S: 63/M [address] [facility] Unit #: [id number] Loc: V.[address] [place] [address] Phys: Richy Nj MD Acct: [id number] Dis Date: Status: ADM IN PHONE #: [phone] Exam Date: 03/14/2019 1325 FAX #: [phone] Reason: hemoptysis EXAMS: CPT CODE: [id number] PULM VENT PERF IMAG 41124 HISTORY: Hemoptysis. Location: [facility]. COMPARISON: CT chest from previous day. Chest x-ray from March 12, 2019 . VQ scan: 10.4 mCi of xenon-133 gas and 5.5 mCi of technetium 99m MAA. Ventilation study: Good wash in and good washout. No retenti on. No defects. Perfusion study: No segmental or subsegmenta l defects. These findings suggest low probability for pulmonary embolism. IMPRESSION: FINDINGS suggest low probability f or pulmonary embolism. at 3994 Reported and signed by: Eros Little M.D. CC: Allison Salgado MD; Richy Nj MD Technologist: Maria A Mg RT(N) Trnscrd Date/Time/By: 03/14/2019 (9717) : By: [email or web address] Orig Print D/T: S: 03/14/2019 (0502) PAGE 1 Signed Report [id number] 13:23:00* Test Item Value Reference Range Comments GLUBED (test code=GLUBED) 110 mg/dL 74-106 Performed by certified veterinary x ray operator at [facility] COMPREHENSIVE METABOLIC [id number] 11:08:00* Test Item Value Reference Range Comments SODIUM (test code=NA) 144 mmol/L 136-145 POTASSIUM (test code=K) 4.0 mmol/L 3.5-5.1 CHLORIDE (test code=CL) 106.0 mmol/L 98-107 CARBON DIOXIDE (test code=CO2) 31.0 mmol/L 21-32 ANION GAP (test code=GAP) 11.0 10-20 GLUCOSE (test code=GLU) 124 mg/dL 74-106 BLOOD UREA NITROGEN (test code=BUN) 19 mg/dL 7-18 GLOMERULAR FILTRATION RATE (test code=GFR) 41 mL/min >=60 Estimated GFR by using Modified MDRD formula.Chronic kidney disease is defined as either kidney damageor GFR <60 mL/min/1.73 m2 for >3 months. CREATININE (test code=CREAT) 1.70 mg/dL 0.7-1.3 BUN/CREATININE RATIO (test code=BUN/CREA) 11.2 10-20 TOTAL PROTEIN (test code=PROT) 7.4 gram/dL 6.4-8.2 ALBUMIN (test code=ALB) 3.4 g/dL 3.4-5.0 GLOBULIN (test code=GLOB) 4.0 gram/dL 2.7-4.2 ALBUMIN/GLOBULIN RATIO (test code=A/G) 0.9 0.75-1.50 CALCIUM (test code=CA) 9.1 mg/dL 8.5-10.1 BILIRUBIN TOTAL (test code=BILT) 0.50 mg/dL 0.0-1.0 SGOT/AST (test code=AST) 19 IUnit/L 15-37 SGPT/ALT (test code=ALT) 30 IUnit/L 12-78 ALKALINE PHOSPHATASE TOTAL (test code=ALKP) 115 IUnit/L 45-117 Note change in reference range due to change in reagent. [id number] 11:08:00* Test Item Value Reference Range Comments MAGNESIUM (test code=MAG) 2.1 mg/dL 1.8-2.4 BILCOMPREHENSIVE METABOLIC [id number] 11:02:00* Test Item Value Reference Range Comments SODIUM (test code=NA) 144 mmol/L 136-145 POTASSIUM (test code=K) 4.0 mmol/L 3.5-5.1 CHLORIDE (test code=CL) 106.0 mmol/L 98-107 CARBON DIOXIDE (test code=CO2) mmol/L 21-32 ANION GAP (test code=GAP) 10-20 GLUCOSE (test code=GLU) mg/dL 74-106 BLOOD UREA NITROGEN (test code=BUN) mg/dL 7-18 GLOMERULAR FILTRATION RATE (test code=GFR) mL/min >=60 CREATININE (test code=CREAT) mg/dL 0.7-1.3 BUN/CREATININE RATIO (test code=BUN/CREA) 10-20 TOTAL PROTEIN (test code=PROT) gram/dL 6.4-8.2 ALBUMIN (test code=ALB) g/dL 3.4-5.0 GLOBULIN (test code=GLOB) gram/dL 2.7-4.2 ALBUMIN/GLOBULIN RATIO (test code=A/G) 0.75-1.50 CALCIUM (test code=CA) mg/dL 8.5-10.1 BILIRUBIN TOTAL (test code=BILT) mg/dL 0.0-1.0 SGOT/AST (test code=AST) IUnit/L 15-37 SGPT/ALT (test code=ALT) IUnit/L 12-78 ALKALINE PHOSPHATASE TOTAL (test code=ALKP) IUnit/L 45-117 [id number] 11:02:00* Test Item Value Reference Range Comments MAGNESIUM (test code=MAG) mg/dL 1.8-2.4 BILCBC W/AUTO [id number] 10:13:00* Test Item Value Reference Range Comments WHITE BLOOD CELL (test code=WBC) 4.3 K/mm3 4.5-12.5 RED BLOOD CELL (test code=RBC) 4.19 mill/mm3 4.0-5.8 HEMOGLOBIN (test code=HGB) 9.0 gram/dL 13.0-17.5 HEMATOCRIT (test code=HCT) 32.5 % 42.0-52.0 MEAN CELL VOLUME (test code=MCV) 77.6 fL 80-98 MEAN CELL HGB (test code=MCH) 21.5 picogram 27.0-33.0 MEAN CELL HGB CONCETRATION (test code=MCHC) 27.7 gram/dL 33.0-36.0 RED CELL DISTRIBUTION WIDTH (test code=RDW) 18.1 % 11.6-16.2 RED CELL DISTRIBUTION WIDTH SD (test code=RDW-SD) 49.7 fL 37.0-51.0 PLATELET COUNT (test code=PLT) 179 K/mm3 150-450 MEAN PLATELET VOLUME (test code=MPV) 10.7 fL 6.7-11.0 NEUTROPHIL % (test code=NT%) 68.9 % 39.0-69.0 IMMATURE GRANULOCYTE % (test code=IG%) 0.9 % 0.0-5.0 LYMPHOCYTE % (test code=LY%) 16.4 % 25.0-55.0 MONOCYTE % (test code=MO%) 7.0 % 0.0-10.0 EOSINOPHIL % (test code=EO%) 6.1 % 0.0-5.0 BASOPHIL % (test code=BA%) 0.7 % 0.0-1.0 NUCLEATED RBC % (test code=NRBC%) 0.0 % 0-0 NEUTROPHIL # (test code=NT#) 2.95 K/mm3 1.8-7.7 IMMATURE GRANULOCYTE # (test code=IG#) 0.04 x10 3/uL 0-0.03 LYMPHOCYTE # (test code=LY#) 0.70 K/mm3 1.0-5.0 MONOCYTE # (test code=MO#) 0.30 K/mm3 0-0.8 EOSINOPHIL # (test code=EO#) 0.26 K/mm3 0.0-0.5 BASOPHIL # (test code=BA#) 0.03 K/mm3 0.0-0.2 NUCLEATED RBC # (test code=NRBC#) 0.00 K/mm3 0.0-0.1 MANUAL DIFF REQUIRED (test code=MDIFF) NO, ONLY SCAN NEEDED DIFFERENTIAL [id number] 10:13:00* Test Item Value Reference Range Comments STAIN ACCEPTABILITY (test code=STN ACCEPTABLE) STAIN ACCEPTABLE POIKILOCYTOSIS (test code=POIK) 1+ ANISOCYTOSIS (test code=ANISO) 2+ MICROCYTOSIS (test code=MICR) 2+ PLATELET ESTIMATE (test code=PLTEST) ADEQUATE PLATELET MORPHOLOGY (test code=PLTMORPH) SIZE VARIABLE CBC W/AUTO [id number] 09:46:00* Test Item Value Reference Range Comments WHITE BLOOD CELL (test code=WBC) 4.3 K/mm3 4.5-12.5 RED BLOOD CELL (test code=RBC) 4.19 mill/mm3 4.0-5.8 HEMOGLOBIN (test code=HGB) 9.0 gram/dL 13.0-17.5 HEMATOCRIT (test code=HCT) 32.5 % 42.0-52.0 MEAN CELL VOLUME (test code=MCV) 77.6 fL 80-98 MEAN CELL HGB (test code=MCH) 21.5 picogram 27.0-33.0 MEAN CELL HGB CONCETRATION (test code=MCHC) 27.7 gram/dL 33.0-36.0 RED CELL DISTRIBUTION WIDTH (test code=RDW) 18.1 % 11.6-16.2 RED CELL DISTRIBUTION WIDTH SD (test code=RDW-SD) 49.7 fL 37.0-51.0 PLATELET COUNT (test code=PLT) 179 K/mm3 150-450 MEAN PLATELET VOLUME (test code=MPV) 10.7 fL 6.7-11.0 NEUTROPHIL % (test code=NT%) 68.9 % 39.0-69.0 IMMATURE GRANULOCYTE % (test code=IG%) 0.9 % 0.0-5.0 LYMPHOCYTE % (test code=LY%) 16.4 % 25.0-55.0 MONOCYTE % (test code=MO%) 7.0 % 0.0-10.0 EOSINOPHIL % (test code=EO%) 6.1 % 0.0-5.0 BASOPHIL % (test code=BA%) 0.7 % 0.0-1.0 NUCLEATED RBC % (test code=NRBC%) 0.0 % 0-0 NEUTROPHIL # (test code=NT#) 2.95 K/mm3 1.8-7.7 IMMATURE GRANULOCYTE # (test code=IG#) 0.04 x10 3/uL 0-0.03 LYMPHOCYTE # (test code=LY#) 0.70 K/mm3 1.0-5.0 MONOCYTE # (test code=MO#) 0.30 K/mm3 0-0.8 EOSINOPHIL # (test code=EO#) 0.26 K/mm3 0.0-0.5 BASOPHIL # (test code=BA#) 0.03 K/mm3 0.0-0.2 NUCLEATED RBC # (test code=NRBC#) 0.00 K/mm3 0.0-0.1 MANUAL DIFF REQUIRED (test code=MDIFF) NO, ONLY SCAN NEEDED DIFFERENTIAL [id number] 09:46:00* Test Item Value Reference Range Comments STAIN ACCEPTABILITY (test code=STN ACCEPTABLE) CABOT RINGS (test code=CAB) MORPHOLOGY COMMENT (test code=MOC) PLATELET ESTIMATE (test code=PLTEST) PLATELET MORPHOLOGY (test code=PLTMORPH) CBC W/AUTO [id number] 09:46:00* Test Item Value Reference Range Comments WHITE BLOOD CELL (test code=WBC) 4.3 K/mm3 4.5-12.5 RED BLOOD CELL (test code=RBC) 4.19 mill/mm3 4.0-5.8 HEMOGLOBIN (test code=HGB) 9.0 gram/dL 13.0-17.5 HEMATOCRIT (test code=HCT) 32.5 % 42.0-52.0 MEAN CELL VOLUME (test code=MCV) 77.6 fL 80-98 MEAN CELL HGB (test code=MCH) 21.5 picogram 27.0-33.0 MEAN CELL HGB CONCETRATION (test code=MCHC) 27.7 gram/dL 33.0-36.0 RED CELL DISTRIBUTION WIDTH (test code=RDW) 18.1 % 11.6-16.2 RED CELL DISTRIBUTION WIDTH SD (test code=RDW-SD) 49.7 fL 37.0-51.0 PLATELET COUNT (test code=PLT) 179 K/mm3 150-450 MEAN PLATELET VOLUME (test code=MPV) 10.7 fL 6.7-11.0 NEUTROPHIL % (test code=NT%) 68.9 % 39.0-69.0 IMMATURE GRANULOCYTE % (test code=IG%) 0.9 % 0.0-5.0 LYMPHOCYTE % (test code=LY%) 16.4 % 25.0-55.0 MONOCYTE % (test code=MO%) 7.0 % 0.0-10.0 EOSINOPHIL % (test code=EO%) 6.1 % 0.0-5.0 BASOPHIL % (test code=BA%) 0.7 % 0.0-1.0 NUCLEATED RBC % (test code=NRBC%) 0.0 % 0-0 NEUTROPHIL # (test code=NT#) 2.95 K/mm3 1.8-7.7 IMMATURE GRANULOCYTE # (test code=IG#) 0.04 x10 3/uL 0-0.03 LYMPHOCYTE # (test code=LY#) 0.70 K/mm3 1.0-5.0 MONOCYTE # (test code=MO#) 0.30 K/mm3 0-0.8 EOSINOPHIL # (test code=EO#) 0.26 K/mm3 0.0-0.5 BASOPHIL # (test code=BA#) 0.03 K/mm3 0.0-0.2 NUCLEATED RBC # (test code=NRBC#) 0.00 K/mm3 0.0-0.1 MANUAL DIFF REQUIRED (test code=MDIFF) NO, ONLY SCAN NEEDED DIFFERENTIAL [id number] 09:46:00* Test Item Value Reference Range Comments STAIN ACCEPTABILITY (test code=STN ACCEPTABLE) CABOT RINGS (test code=CAB) MORPHOLOGY COMMENT (test code=MOC) PLATELET ESTIMATE (test code=PLTEST) PLATELET MORPHOLOGY (test code=PLTMORPH) CBC W/AUTO [id number] 09:46:00* Test Item Value Reference Range Comments WHITE BLOOD CELL (test code=WBC) 4.3 K/mm3 4.5-12.5 RED BLOOD CELL (test code=RBC) 4.19 mill/mm3 4.0-5.8 HEMOGLOBIN (test code=HGB) 9.0 gram/dL 13.0-17.5 HEMATOCRIT (test code=HCT) 32.5 % 42.0-52.0 MEAN CELL VOLUME (test code=MCV) 77.6 fL 80-98 MEAN CELL HGB (test code=MCH) 21.5 picogram 27.0-33.0 MEAN CELL HGB CONCETRATION (test code=MCHC) 27.7 gram/dL 33.0-36.0 RED CELL DISTRIBUTION WIDTH (test code=RDW) 18.1 % 11.6-16.2 RED CELL DISTRIBUTION WIDTH SD (test code=RDW-SD) 49.7 fL 37.0-51.0 PLATELET COUNT (test code=PLT) 179 K/mm3 150-450 MEAN PLATELET VOLUME (test code=MPV) 10.7 fL 6.7-11.0 NEUTROPHIL % (test code=NT%) 68.9 % 39.0-69.0 IMMATURE GRANULOCYTE % (test code=IG%) 0.9 % 0.0-5.0 LYMPHOCYTE % (test code=LY%) 16.4 % 25.0-55.0 MONOCYTE % (test code=MO%) 7.0 % 0.0-10.0 EOSINOPHIL % (test code=EO%) 6.1 % 0.0-5.0 BASOPHIL % (test code=BA%) 0.7 % 0.0-1.0 NUCLEATED RBC % (test code=NRBC%) 0.0 % 0-0 NEUTROPHIL # (test code=NT#) 2.95 K/mm3 1.8-7.7 IMMATURE GRANULOCYTE # (test code=IG#) 0.04 x10 3/uL 0-0.03 LYMPHOCYTE # (test code=LY#) 0.70 K/mm3 1.0-5.0 MONOCYTE # (test code=MO#) 0.30 K/mm3 0-0.8 EOSINOPHIL # (test code=EO#) 0.26 K/mm3 0.0-0.5 BASOPHIL # (test code=BA#) 0.03 K/mm3 0.0-0.2 NUCLEATED RBC # (test code=NRBC#) 0.00 K/mm3 0.0-0.1 MANUAL DIFF REQUIRED (test code=MDIFF) NO, ONLY SCAN NEEDED DIFFERENTIAL [id number] 09:46:00* Test Item Value Reference Range Comments STAIN ACCEPTABILITY (test code=STN ACCEPTABLE) MORPHOLOGY COMMENT (test code=MOC) PLATELET ESTIMATE (test code=PLTEST) PLATELET MORPHOLOGY (test code=PLTMORPH) CBC W/AUTO [id number] 09:46:00* Test Item Value Reference Range Comments WHITE BLOOD CELL (test code=WBC) 4.3 K/mm3 4.5-12.5 RED BLOOD CELL (test code=RBC) 4.19 mill/mm3 4.0-5.8 HEMOGLOBIN (test code=HGB) 9.0 gram/dL 13.0-17.5 HEMATOCRIT (test code=HCT) 32.5 % 42.0-52.0 MEAN CELL VOLUME (test code=MCV) 77.6 fL 80-98 MEAN CELL HGB (test code=MCH) 21.5 picogram 27.0-33.0 MEAN CELL HGB CONCETRATION (test code=MCHC) 27.7 gram/dL 33.0-36.0 RED CELL DISTRIBUTION WIDTH (test code=RDW) 18.1 % 11.6-16.2 RED CELL DISTRIBUTION WIDTH SD (test code=RDW-SD) 49.7 fL 37.0-51.0 PLATELET COUNT (test code=PLT) 179 K/mm3 150-450 MEAN PLATELET VOLUME (test code=MPV) 10.7 fL 6.7-11.0 NEUTROPHIL % (test code=NT%) 68.9 % 39.0-69.0 IMMATURE GRANULOCYTE % (test code=IG%) 0.9 % 0.0-5.0 LYMPHOCYTE % (test code=LY%) 16.4 % 25.0-55.0 MONOCYTE % (test code=MO%) 7.0 % 0.0-10.0 EOSINOPHIL % (test code=EO%) 6.1 % 0.0-5.0 BASOPHIL % (test code=BA%) 0.7 % 0.0-1.0 NUCLEATED RBC % (test code=NRBC%) 0.0 % 0-0 NEUTROPHIL # (test code=NT#) 2.95 K/mm3 1.8-7.7 IMMATURE GRANULOCYTE # (test code=IG#) 0.04 x10 3/uL 0-0.03 LYMPHOCYTE # (test code=LY#) 0.70 K/mm3 1.0-5.0 MONOCYTE # (test code=MO#) 0.30 K/mm3 0-0.8 EOSINOPHIL # (test code=EO#) 0.26 K/mm3 0.0-0.5 BASOPHIL # (test code=BA#) 0.03 K/mm3 0.0-0.2 NUCLEATED RBC # (test code=NRBC#) 0.00 K/mm3 0.0-0.1 MANUAL DIFF REQUIRED (test code=MDIFF) NO, ONLY SCAN NEEDED DIFFERENTIAL [id number] 09:46:00* Test Item Value Reference Range Comments STAIN ACCEPTABILITY (test code=STN ACCEPTABLE) CABOT RINGS (test code=CAB) MORPHOLOGY COMMENT (test code=MOC) PLATELET ESTIMATE (test code=PLTEST) PLATELET MORPHOLOGY (test code=PLTMORPH) [id number] 06:19:00* Test Item Value Reference Range Comments GLUBED (test code=GLUBED) 120 mg/dL 74-106 Performed by certified veterinary x ray operator at [facility] [id number] 21:33:00* Test Item Value Reference Range Comments GLUBED (test code=GLUBED) 113 mg/dL 74-106 Performed by certified veterinary x ray operator at [facility] [id number] 17:32:00* Test Item Value Reference Range Comments GLUBED (test code=GLUBED) 99 mg/dL 74-106 Performed by certified veterinary x ray operator at [facility] - CT CHEST W/O [id number] 15:59:00 Name: REJI BARRETT [facility] : 1955 Age/S: 63 / M [address] [facility] Unit #: [id number] Loc: [place] [address] Phys: Richy Nj MD Acct: [id number] Dis Date: Status: ADM IN PHONE #: [phone] Exam Date: 03/13/2019 1541 FAX #: [phone] Reason: hemoptysis EXAMS: CPT CODE: [id number] CT CHEST W/O CONTRAST 43039 EXAM: CT of the chest without contrast; INFORMATION: Chest pain, tachycardia; hemoptysis; TECHNIQUE AND FINDINGS: CT dose reduction protocol; 5 mm cuts through the chest without contrast. Multiplanar reconstructions. Lung windows show no parenchymal abnormality; no infiltrates, no edema; no mass lesions. No pleural effusions. No pneumothorax. Mediastinal windows show a normal sized heart. There are extensive calcifications of the left coronary arteries. The patient is status post cardiac bypass surgery. Moderate calcified plaques also seen in the thoracic aorta. Status post median sternotomy. Scans through the upper abdomen show small gallstones and milk of calcium bile. IMPRESSION: 1. No evidence of acute cardiothoracic abnormalities. 2. Extensive calcifications of the left coronary arteries. 3. Cholecystolithiasis. Location code: at 1559 Reported and signed by: Yobany Baldwin M.D. CC: Allison Salgado MD; Richy Nj MD Technologist: Chantale Valdovinos RT(R),CT; CTDI: DLP: Trnscb Date/Time: 03/13 (1559) [email or web address] Orig Print D/T: S: 03/13/2019 (160 2) PAGE 1 Signed Report [id number] 15:27:00* Test Item Value Reference Range Comments TROPONIN-I (test code=TROPI) 0.463 ng/mL 0-0.045 PREVIOUSLY CALLED HGB [id number] 15:01:00* Test Item Value Reference Range Comments HEMOGLOBIN (test code=HGB) 9.5 gram/dL 13.0-17.5 HEMATOCRIT (test code=HCT) 34.1 % 42.0-52.0 [id number] 13:01:00* Test Item Value Reference Range Comments GLUBED (test code=GLUBED) 112 mg/dL 74-106 Performed by certified veterinary x ray operator at [facility] HGB [id number] 12:14:00* Test Item Value Reference Range Comments HEMOGLOBIN (test code=HGB) 9.5 gram/dL 13.0-17.5 HEMATOCRIT (test code=HCT) 32.7 % 42.0-52.0 [id number] 09:31:00* Test Item Value Reference Range Comments GLUBED (test code=GLUBED) 112 mg/dL 74-106 Performed by certified veterinary x ray operator at [facility] [id number] 03:15:00* Test Item Value Reference Range Comments TROPONIN-I (test code=TROPI) 1.020 ng/mL 0-0.045 PREVIOUSLY CALLED COMMENTS TO MANAGER CORPORATE RESPONSIBILITY: COLLECT 3 HOURS AFTER PREVIOUS [id number] 23:50:00* Test Item Value Reference Range Comments TROPONIN-I (test code=TROPI) 0.987 ng/mL 0-0.045 Results called to [place] [address] by ALKA 03/12/19 2350Critical results verified and read back by Nurse? Y COMMENTS TO MANAGER CORPORATE RESPONSIBILITY: COLLECT 3 HOURS AFTER PREVIOUS SAMPLECPK-MB [id number] 23:47:00* Test Item Value Reference Range Comments CREATINE KINASE (CK) (test code=CK) 64 IUnit/L 26-208 CKMB (test code=CKMBT) 5.3 ng/mL 0-6.0 RELATIVE % INDEX (test code=REL%) 8.28 % 0.00-2.50 "If the total CK is elevated, the CKMB Fraction must beinterpreted as a Relative % Index, Normal is less than 2.5%"NOTE: Relative % Index is not valid with a normal total CK. [id number] 21:17:00* Test Item Value Reference Range Comments GLUBED (test code=GLUBED) 160 mg/dL 74-106 Performed by certified veterinary x ray operator at [facility] DRUGS OF ABUSE SCREEN [id number] 18:00:00* Test Item Value Reference Range Comments UA PH DIPSTICK (test code=JAVIER) 6.0 5.0-8.0 URN COCAINE (test code=COCAURN) NEGATIVE <300 ng/mL URN CANNABINOIDS (test code=CANNABURN) NEGATIVE <50 ng/mL URN AMPHETAMINE (test code=AMPHETURN) NEGATIVE <1000 ng/mL URN BARBITURATE (test code=BARBITURN) NEGATIVE <200 ng/mL URN BENZODIAZEPINE (test code=BENZOURN) NEGATIVE <200 ng/mL URN OPIATES (test code=OPIATURN) NEGATIVE <300 ng/mL URN PHENCYCLIDINE (PCP) (test code=PHENCURN) NEGATIVE <25 ng/mL URN METHADONE (test code=METHAURN) NEGATIVE <300 ng/mL B-TYPE NATRIURETIC [id number] 17:59:00* Test Item Value Reference Range Comments B-TYPE NATRIURETIC PEPTIDE (test code=BNP) 491.23 pgram/mL 0-100 BASIC METABOLIC [id number] 17:43:00* Test Item Value Reference Range Comments SODIUM (test code=NA) 141 mmol/L 136-145 POTASSIUM (test code=K) 3.7 mmol/L 3.5-5.1 CHLORIDE (test code=CL) 106.0 mmol/L 98-107 CARBON DIOXIDE (test code=CO2) 23.0 mmol/L 21-32 ANION GAP (test code=GAP) 15.7 10-20 GLUCOSE (test code=GLU) 254 mg/dL 74-106 BLOOD UREA NITROGEN (test code=BUN) 21 mg/dL 7-18 GLOMERULAR FILTRATION RATE (test code=GFR) 36 mL/min >=60 Estimated GFR by using Modified MDRD formula.Chronic kidney disease is defined as either kidney damageor GFR <60 mL/min/1.73 m2 for >3 months. CREATININE (test code=CREAT) 1.90 mg/dL 0.7-1.3 BUN/CREATININE RATIO (test code=BUN/CREA) 11.1 10-20 CALCIUM (test code=CA) 8.8 mg/dL 8.5-10.1 HEPATIC FUNCTION [id number] 17:43:00* Test Item Value Reference Range Comments TOTAL PROTEIN (test code=PROT) 7.8 gram/dL 6.4-8.2 ALBUMIN (test code=ALB) 3.5 g/dL 3.4-5.0 GLOBULIN (test code=GLOB) 4.3 gram/dL 2.7-4.2 ALBUMIN/GLOBULIN RATIO (test code=A/G) 0.8 0.75-1.50 BILIRUBIN TOTAL (test code=BILT) 0.40 mg/dL 0.0-1.0 BILIRUBIN DIRECT (test code=BILD) 0.18 mg/dL 0.0-0.20 SGOT/AST (test code=AST) 40 IUnit/L 15-37 SGPT/ALT (test code=ALT) 41 IUnit/L 12-78 ALKALINE PHOSPHATASE TOTAL (test code=ALKP) 114 IUnit/L 45-117 Note change in reference range due to change in reagent. [id number] 17:43:00* Test Item Value Reference Range Comments LIPASE (test code=LIP) 342 U/L 73.0-393.0 [id number] 17:43:00* Test Item Value Reference Range Comments MAGNESIUM (test code=MAG) 2.1 mg/dL 1.8-2.4 CPK-MB [id number] 17:43:00* Test Item Value Reference Range Comments CREATINE KINASE (CK) (test code=CK) 50 IUnit/L 26-208 CKMB (test code=CKMBT) 1.8 ng/mL 0-6.0 RELATIVE % INDEX (test code=REL%) 3.60 % 0.00-2.50 "If the total CK is elevated, the CKMB Fraction must beinterpreted as a Relative % Index, Normal is less than 2.5%"NOTE: Relative % Index is not valid with a normal total CK. [id number] 17:43:00* Test Item Value Reference Range Comments TROPONIN-I (test code=TROPI) <0.015 ng/mL 0-0.045 PROTHROMBIN [id number] 17:36:00* Test Item Value Reference Range Comments PROTHROMBIN TIME PATIENT (test code=PTP) 12.3 seconds 9.0-14.0 INTERNATIONAL NORMAL RATIO (test code=INR) 1.0 0.8-1.2 The therapeutic range for oral anticoagulant therapy formost indications is an international normalized ratio (INR)of between 2.0 and 3.0. The recommended therapeutic INRrange for various clinical situations is listed below: Clinical Situation INR range Pulmonary e mbolism treatment (2.0-3.0)Venous thrombosis treatmentVenous thrombosis prophylaxis (high risk surgery)Prevention of systemic embolism from: Acute myocardial infarction Valvular heart disease Atrial fibrillation Mechanical prosthetic heart valves (2.5-3.5) IS PATIENT ON ANTICOAGULANTS? NTHROMBOPLASTIN TIME [id number] 17:36:00* Test Item Value Reference Range Comments THROMBOPLASTIN TIME PARTIAL (test code=PTT) 36.6 seconds 25.0-36.5 IS PATIENT ON ANTICOAGULANTS? NDRUGS OF ABUSE SCREEN [id number] 17:36:00* Test Item Value Reference Range Comments UA PH DIPSTICK (test code=JAVIER) 6.0 5.0-8.0 URN COCAINE (test code=COCAURN) <300 ng/mL URN CANNABINOIDS (test code=CANNABURN) <50 ng/mL URN AMPHETAMINE (test code=AMPHETURN) <1000 ng/mL URN BARBITURATE (test code=BARBITURN) <200 ng/mL URN BENZODIAZEPINE (test code=BENZOURN) <200 ng/mL URN OPIATES (test code=OPIATURN) <300 ng/mL URN PHENCYCLIDINE (PCP) (test code=PHENCURN) <25 ng/mL URN METHADONE (test code=METHAURN) <300 ng/mL BASIC METABOLIC [id number] 17:33:00* Test Item Value Reference Range Comments SODIUM (test code=NA) 141 mmol/L 136-145 POTASSIUM (test code=K) 3.7 mmol/L 3.5-5.1 CHLORIDE (test code=CL) 106.0 mmol/L 98-107 CARBON DIOXIDE (test code=CO2) mmol/L 21-32 ANION GAP (test code=GAP) 10-20 GLUCOSE (test code=GLU) mg/dL 74-106 BLOOD UREA NITROGEN (test code=BUN) mg/dL 7-18 GLOMERULAR FILTRATION RATE (test code=GFR) mL/min >=60 CREATININE (test code=CREAT) mg/dL 0.7-1.3 BUN/CREATININE RATIO (test code=BUN/CREA) 10-20 CALCIUM (test code=CA) mg/dL 8.5-10.1 HEPATIC FUNCTION [id number] 17:33:00* Test Item Value Reference Range Comments TOTAL PROTEIN (test code=PROT) gram/dL 6.4-8.2 ALBUMIN (test code=ALB) g/dL 3.4-5.0 GLOBULIN (test code=GLOB) gram/dL 2.7-4.2 ALBUMIN/GLOBULIN RATIO (test code=A/G) 0.75-1.50 BILIRUBIN TOTAL (test code=BILT) mg/dL 0.0-1.0 BILIRUBIN DIRECT (test code=BILD) mg/dL 0.0-0.20 SGOT/AST (test code=AST) IUnit/L 15-37 SGPT/ALT (test code=ALT) IUnit/L 12-78 ALKALINE PHOSPHATASE TOTAL (test code=ALKP) IUnit/L 45-117 [id number] 17:33:00* Test Item Value Reference Range Comments LIPASE (test code=LIP) U/L 73.0-393.0 [id number] 17:33:00* Test Item Value Reference Range Comments MAGNESIUM (test code=MAG) mg/dL 1.8-2.4 CPK-MB [id number] 17:33:00* Test Item Value Reference Range Comments CREATINE KINASE (CK) (test code=CK) IUnit/L 26-208 CKMB (test code=CKMBT) ng/mL 0-6.0 RELATIVE % INDEX (test code=REL%) % 0.00-2.50 [id number] 17:33:00* Test Item Value Reference Range Comments TROPONIN-I (test code=TROPI) ng/mL 0-0.045 CBC W/O [id number] 17:18:00* Test Item Value Reference Range Comments WHITE BLOOD CELL (test code=WBC) 7.5 K/mm3 4.5-12.5 RED BLOOD CELL (test code=RBC) 4.81 mill/mm3 4.0-5.8 HEMOGLOBIN (test code=HGB) 10.4 gram/dL 13.0-17.5 HEMATOCRIT (test code=HCT) 36.9 % 42.0-52.0 MEAN CELL VOLUME (test code=MCV) 76.7 fL 80-98 MEAN CELL HGB (test code=MCH) 21.6 picogram 27.0-33.0 MEAN CELL HGB CONCETRATION (test code=MCHC) 28.2 gram/dL 33.0-36.0 RED CELL DISTRIBUTION WIDTH (test code=RDW) 18.3 % 11.6-16.2 PLATELET COUNT (test code=PLT) 252 K/mm3 150-450 MEAN PLATELET VOLUME (test code=MPV) 10.6 fL 6.7-11.0 - XR CHEST 1 [id number] 17:06:00 FAX: Mercedes Oakley [phone] [place]: St: PRE Name: REJI OLSON [facility] : [birth year] Age/S: 63/M [address] [facility] Unit #: [id number] Loc: [place] [address] Phys: Mercedes Chaudhari MD Acct: [id number] Dis Date: Status: PRE ER PHONE #: [phone] Exam Date: 03/12/2019 1653 FAX #: [phone] Reason: CHEST PAIN EXAMS: CPT CODE: [id number] XR CHEST 1 V 30348 HISTORY: Chest pain. COMPARISON: February 17, 2019. Location: [facility]. No acute infiltrates, effusion or congestion is noted. Left ICD is unchanged. M oderate cardiomegaly. IMPRESSION: No acute i nfiltrates, effusion or congestion. at 1706 Reported and signed by: Eros Little M.D. CC: Mercedes Chaudhari MD Technologist: Kitty White RT(R) Trnscrd Date/Time/By: 03/12/2019 (9274) : By: [email or web address] Orig Print D/T: S: 03/12/2019 (8606) PAGE 1 Signed Report - US ABDOMEN [id number] 13:50:00 Name: REJI BARRETT [facility] : 1955 Age/S: 63 / M [address] Unit #: [id number] Loc: [place] [address] Phys: Nba Cage MD Acct: [id number] Dis Date: Status: REG ER PHONE #: [phone] Exam Date: 02/17/2019 1325 FAX #: [phone] Reason: ABD PAIN EXAMS: CPT CODE: [id number] US ABDOMEN LTD 30188 REASON FOR EXAM: ABD PAIN EXAM ORDER DATE: 02/17/2019 12:19 PM Attending M.D.: Nba Cage MD PROCEDURE: - US ABDOMEN LTD Technique: Grayscale and color Doppler images of the right upper quadrant of the abdomen. Comparison study: CT of the abdomen and pelvis earlier today FINDINGS: Aorta and IVC: Incompletely visualized however the visualized portions demonstrate no obvious abnormality Liver: Size: 19.3 cm craniocaudally Parenchyma and contour: Smooth contour. Normal echogenicity. Cysts and/or masses: None. Intrahepatic bile ducts: No intrahepatic biliary ductal dilation Common bile duct: 4.1 mm in diameter. No echogenic filling defects in visualized duct. Gallbladder: Stones/sludge: Multiple intraluminal stones are present Wall: 4.7 mm in thickness. No discontinuity. No polyps. No pericholecystic fluid. No hyperemia. Sonographic Childress's sign: Negative Portal vein: Portal vein caliber is within normal limits. Portal vein is patent with hepatopetal flow. Pancreas: Incompletely visualized. However the visualized portions are grossly within normal limits. Right kidney: parenchyma echogenicity: Normal echogenicity size: 12.2 x 5.5 x 5.8 cm stones: none cysts/masses: none PAGE 1 Signed Report (CONTINUED) [facility] 1955 Age/S: 63 / M [address] Unit #: [id number] Loc: [place] [address] Phys: Nba Cage MD Acct: [id number] Dis Date: Status: REG ER PHONE #: [phone] Exam Date: 02/17/2019 1325 FAX #: [phone] Reason: ABD PAIN EXAMS: CPT CODE: [id number] ABDOMEN LTD 50645 < Continued> hydronephrosis: none Ascites/pleural effusions: None IMPRESSION: Cholelithiasis without sonographic evidence of acute cholecystitis (negative sonographic Childress's sign). There is thickening of the gallbladder wall. This is a nonspecific finding and may be seen in cases of chronic cholecystitis, hypoproteinemia, or may be reactive to chronic inflammatory changes in the liver. These note also that the sensitivity of the sonographic Childress sign may be diminished and the patient has received analgesics. Hepatomegaly may be due to the Sandoval's lobe of the liver seen on the previous CT scan. Location: [facility] at 1350 Reported and signed by: Tony El MD CC: Nba Cage MD Technologist: FRANCI BERNAL RT(R),RDMS Trnmtb Date/Time: 02/17/2019 (6859) t.SDR.RR31 Orig Print D/T: S: 02/17/2019 (8649) Probe: PAGE 2 Signed Report - CT ABD PELVIS W/O [id number] 12:13:00 Name: REJI BARRETT [facility] : 1955 Age/S: 63 / M [address] [facility] Unit #: [id number] Loc: [place] [address] Phys: Nba Cage MD Acct: [id number] Dis Date: Status: REG ER PHONE #: [phone] Exam Date: 02/17/2019 1140 FAX #: [phone] Reason: abd pain EXAMS: CPT CODE: [id number] CT ABD PELVIS W/O CONT 44827 REASON FOR EXAM: abd pain EXAM ORDER DATE: 02/17/2019 11:27 AM Ordering M.DTimmy: Nba Cage MD PROCEDURE: - CT ABD PELVIS W/O CONT noncontrast axial CT images were acquired through the abdomen/pelvis at 5 mm intervals. Sagittal and coronal reformatted images were generated. Automated exposure control was utilized for this reduction. Phases of contrast: None COMPARISON: CT abdomen and pelvis generated 03/07/2016 FINDINGS: The absence of IV contrast limits sensitivity of this exam for the detection of soft tissue pathology Visualized thorax: Small bilateral pleural effusions and subsegmental atelectatic changes in the lung bases. Extensive coronary atherosclerosis is present. Leads from a cardiac device terminate in the right ventricle. Hepatobiliary system: Innumerable stones are present in the gallbladder. No pericholecystic fat stranding to suggest cholecystitis. Incidental note is made of Sandoval's lobe of the liver (normal anatomic variant). Pancreas: Moderate fatty replacement Spleen: Grossly normal Adrenal glands: Left adrenal gland nodule measuring 2.4 cm in size is slightly larger from the prior exam where it measured 1.9 cm in size. Additionally the density of this nodule measures 20 Hounsfield units. Right adrenal gland is within normal limits Genitourinary system: There is a stone in the inferior pole of the left kidney that measures less than 5 mm in size. No stones are seen in either ureter or in the urinary bladder. Reproductive organs and prostate and seminal vesicles are within normal limits. Gastrointestinal tract and appendix: Moderate to heavy colonic stool PAGE 1 Signed Report (CONTINUED) Name: REJI BARRETT [facility] : 1955 Age/S: 63 / M [address] Unit #: [id number] Loc: [place] [address] Phys: Nba Cage MD Acct: [id number] Dis Date: Status: REG ER PHONE #: [phone] Exam Date: 02/17/2019 1140 FAX #: [phone] Reason: abd pain EXAMS: CPT CODE: [id number] CT ABD PELVIS W/O CONT 94007 <Continued> burden. Appendix is within normal limits. Stomach and small bowel are unremarkable. Abdominal vascular structures: Mild atherosclerotic disease is present in the abdominal aorta and the splenic artery and superior mesenteric artery. There is also mild atherosclerosis in the common iliac arteries. Peritoneum and retroperitoneum: No free fluid or free air. No omental or mesenteric masses. No abnormal lymph nodes. Musculoskeletal structures and abdominal wall: There are degenerative changes in the spine. Mild degenerative changes are present in the hips. Small fat-containing inguinal hernias are present bilaterally. IMPRESSION: Cholelithiasis without CT findings to suggest acute cholecystitis. This can be better evaluated with abdominal ultrasound. Nonobstructing stone, measuring less than 5 mm in size, in the left kidney. Location: [facility] at 1213 Reported and signed by: Tony El MD CC: Nba Cage MD Technologist:Chantale Valdovinos RT(R),CT CTDI: DLP: Trnscb Date/Time: 02/17/2019 (1583) t.SDR.RR31 Orig Print D/T: S: 02/17/2019 (5548) PAGE 2 Signed Report BASIC METABOLIC [id number] 11:02:00* Test Item Value Reference Range Comments SODIUM (test code=NA) 139 mmol/L 136-145 POTASSIUM (test code=K) 3.9 mmol/L 3.5-5.1 CHLORIDE (test code=CL) 105.0 mmol/L 98-107 CARBON DIOXIDE (test code=CO2) 27.0 mmol/L 21-32 ANION GAP (test code=GAP) 10.9 10-20 GLUCOSE (test code=GLU) 136 mg/dL 74-106 BLOOD UREA NITROGEN (test code=BUN) 20 mg/dL 7-18 GLOMERULAR FILTRATION RATE (test code=GFR) 44 mL/min >=60 Estimated GFR by using Modified MDRD formula.Chronic kidney disease is defined as either kidney damageor GFR <60 mL/min/1.73 m2 for >3 months. CREATININE (test code=CREAT) 1.60 mg/dL 0.7-1.3 BUN/CREATININE RATIO (test code=BUN/CREA) 12.9 10-20 CALCIUM (test code=CA) 8.8 mg/dL 8.5-10.1 HEPATIC FUNCTION [id number] 11:02:00* Test Item Value Reference Range Comments TOTAL PROTEIN (test code=PROT) 7.1 gram/dL 6.4-8.2 ALBUMIN (test code=ALB) 2.7 g/dL 3.4-5.0 GLOBULIN (test code=GLOB) 4.4 gram/dL 2.7-4.2 ALBUMIN/GLOBULIN RATIO (test code=A/G) 0.6 0.75-1.50 BILIRUBIN TOTAL (test code=BILT) 0.70 mg/dL 0.0-1.0 BILIRUBIN DIRECT (test code=BILD) 0.44 mg/dL 0.0-0.20 SGOT/AST (test code=AST) 32 IUnit/L 15-37 SGPT/ALT (test code=ALT) 32 IUnit/L 12-78 ALKALINE PHOSPHATASE TOTAL (test code=ALKP) 87 IUnit/L 45-117 Note change in reference range due to change in reagent. [id number] 11:02:00* Test Item Value Reference Range Comments LIPASE (test code=LIP) 92 U/L 73.0-393.0 [id number] 11:02:00* Test Item Value Reference Range Comments TROPONIN-I (test code=TROPI) 1.780 ng/mL 0-0.045 Results called to TANIA [id number] V.LAB.OA 02/17/19 1102Critical results verified and read back by Nurse? Y BASIC METABOLIC [id number] 10:40:00* Test Item Value Reference Range Comments SODIUM (test code=NA) 139 mmol/L 136-145 POTASSIUM (test code=K) 3.9 mmol/L 3.5-5.1 CHLORIDE (test code=CL) 105.0 mmol/L 98-107 CARBON DIOXIDE (test code=CO2) mmol/L 21-32 ANION GAP (test code=GAP) 10-20 GLUCOSE (test code=GLU) mg/dL 74-106 BLOOD UREA NITROGEN (test code=BUN) mg/dL 7-18 GLOMERULAR FILTRATION RATE (test code=GFR) mL/min >=60 CREATININE (test code=CREAT) mg/dL 0.7-1.3 BUN/CREATININE RATIO (test code=BUN/CREA) 10-20 CALCIUM (test code=CA) mg/dL 8.5-10.1 HEPATIC FUNCTION [id number] 10:40:00* Test Item Value Reference Range Comments TOTAL PROTEIN (test code=PROT) gram/dL 6.4-8.2 ALBUMIN (test code=ALB) g/dL 3.4-5.0 GLOBULIN (test code=GLOB) gram/dL 2.7-4.2 ALBUMIN/GLOBULIN RATIO (test code=A/G) 0.75-1.50 BILIRUBIN TOTAL (test code=BILT) mg/dL 0.0-1.0 BILIRUBIN DIRECT (test code=BILD) mg/dL 0.0-0.20 SGOT/AST (test code=AST) IUnit/L 15-37 SGPT/ALT (test code=ALT) IUnit/L 12-78 ALKALINE PHOSPHATASE TOTAL (test code=ALKP) IUnit/L 45-117 [id number] 10:40:00* Test Item Value Reference Range Comments LIPASE (test code=LIP) U/L 73.0-393.0 [id number] 10:40:00* Test Item Value Reference Range Comments TROPONIN-I (test code=TROPI) ng/mL 0-0.045 CBC W/O [id number] 10:29:00* Test Item Value Reference Range Comments WHITE BLOOD CELL (test code=WBC) 5.0 K/mm3 4.5-12.5 RED BLOOD CELL (test code=RBC) 3.69 mill/mm3 4.0-5.8 HEMOGLOBIN (test code=HGB) 8.2 gram/dL 13.0-17.5 HEMATOCRIT (test code=HCT) 28.5 % 42.0-52.0 MEAN CELL VOLUME (test code=MCV) 77.2 fL 80-98 MEAN CELL HGB (test code=MCH) 22.2 picogram 27.0-33.0 MEAN CELL HGB CONCETRATION (test code=MCHC) 28.8 gram/dL 33.0-36.0 RED CELL DISTRIBUTION WIDTH (test code=RDW) 17.2 % 11.6-16.2 PLATELET COUNT (test code=PLT) 216 K/mm3 150-450 MEAN PLATELET VOLUME (test code=MPV) 11.1 fL 6.7-11.0 - XR CHEST 1 [id number] 10:06:00 FAX: Nba Finney [phone] [place]: [address]: PRE Name: REJI OLSON [facility] : [birth year] Age/S: 63/M [address] [facility] Unit #: [id number] Loc: [place] [address] Phys: Nba Cage MD Acct: [id number] Dis Date: Status: PRE ER PHONE #: [phone] Exam Date: 02/17/2019 0934 FAX #: [phone] Reason: CHEST PAIN EXAMS: CPT CODE: [id number] XR CHEST 1 V 76070 REASON FOR EXAM: CHEST PAIN Exam Order Date: 02/17/2019 9:24 AM Ordering M.D.: Nba Cage MD PROCEDURE: - XR CHEST 1 V COM PARISON: Frontal chest x-ray February 13, 2019 FINDINGS: Th e lungs are clear. There is no pleural effusion or pneumothorax. Pulmonar y vascularity is within normal limits. Cardiomediastinal silhouett e is enlarged but stable in size. Left subclavian ICD is stable in positio n. 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 Sternoto my wires and degenerative changes in the spine appears similar to the prio r exam. The visualized upper abdomen is within normal limits. IMPRESSION: No acute cardiopulmonary process. Cardiomegaly is unchanged from prior exam. Location: [facility] at 1006 Reported and signed by: Tony El MD CC: Nba Cage MD Technologist: Bonita Mccain RT(R) Trnscrd Date/Time/By: 02/17/2019 (1006) : By: carlos [id number] Orig Print D/T: S: 02/17/2019 (1010) P AGE 1 Signed Report GLUBED 2019-02-16 16:58:00* Test Item Value Reference Range Comments GLUBED (test code=GLUBED) 97 MG/DL 74-106 [id number] 12:11:00* Test Item Value Reference Range Comments GLUBED (test code=GLUBED) 107 MG/DL 74-106 [id number] 12:11:00* Test Item Value Reference Range Comments GLUBED (test code=GLUBED) 81 MG/DL 74-106 [id number] 03:29:00* Test Item Value Reference Range Comments GLUBED (test code=GLUBED) 96 MG/DL 74-106 [id number] 03:29:00* Test Item Value Reference Range Comments GLUBED (test code=GLUBED) 101 MG/DL 74-106 [id number] 03:29:00* Test Item Value Reference Range Comments GLUBED (test code=GLUBED) 66 MG/DL 74-106 BASIC METABOLIC [id number] 01:46:00* Test Item Value Reference Range Comments SODIUM (test code=NA) 137 mmol/L 137-145 POTASSIUM (test code=K) 3.5 mmol/L 3.4-5.0 CHLORIDE (test code=CL) 101 mmol/L 98-107 CARBON DIOXIDE (test code=CO2) 27 mmol/L 22-30 GLUCOSE (test code=GLU) 89 mg/dL 74-106 BLOOD UREA NITROGEN (test code=BUN) 15 mg/dL 9-20 GLOMERULAR FILTRATION RATE (test code=GFR) 59 >60 The estimated glomerular filtration rate is computed usingpatient race, age (>18), sex, and serum creatinine. If anyof the needed data elements are missing the Laboratory cannot compute an estimation of the glomerular filtration rate. CREATININE (test code=CREAT) 1.3 mg/dL 0.7-1.3 CALCIUM (test code=CA) 8.2 mg/dL 8.4-10.2 [id number] 01:46:00* Test Item Value Reference Range Comments MAGNESIUM (test code=MAG) 2.1 mg/dL 1.6-2.3 BASIC METABOLIC [id number] 01:41:00* Test Item Value Reference Range Comments SODIUM (test code=NA) 137 mmol/L 137-145 POTASSIUM (test code=K) 3.5 mmol/L 3.4-5.0 CHLORIDE (test code=CL) 101 mmol/L 98-107 CARBON DIOXIDE (test code=CO2) 27 mmol/L 22-30 GLUCOSE (test code=GLU) 89 mg/dL 74-106 BLOOD UREA NITROGEN (test code=BUN) 15 mg/dL 9-20 GLOMERULAR FILTRATION RATE (test code=GFR) 59 >60 The estimated glomerular filtration rate is computed usingpatient race, age (>18), sex, and serum creatinine. If anyof the needed data elements are missing the Laboratory cannot compute an estimation of the glomerular filtration rate. CREATININE (test code=CREAT) 1.3 mg/dL 0.7-1.3 CALCIUM (test code=CA) 8.2 mg/dL 8.4-10.2 [id number] 01:41:00* Test Item Value Reference Range Comments MAGNESIUM (test code=MAG) mg/dL 1.6-2.3 CBC W/AUTO [id number] 01:15:00* Test Item Value Reference Range Comments WHITE BLOOD CELL (test code=WBC) 6.3 x10 3/uL 5.0-12.0 RED BLOOD CELL (test code=RBC) 3.71 x10 6/uL 4.70-6.10 HEMOGLOBIN (test code=HGB) 8.3 g/dL 14.0-18.0 HEMATOCRIT (test code=HCT) 27.4 % 37.0-49.0 MEAN CELL VOLUME (test code=MCV) 74 fL 80-94 MEAN CELL HGB (test code=MCH) 22.4 pg 27-31 MEAN CELL HGB CONCENTRATION (test code=MCHC) 30.3 g/dL 33-37 RED CELL DISTRIBUTION WIDTH (test code=RDW) 17.3 % 11.5-15.5 PLATELET COUNT (test code=PLT) 205 x10 3/uL 130-400 MEAN PLATELET VOLUME (test code=MPV) 11.5 fL 9.4-16.4 NEUTROPHIL % (test code=NT%) 75.7 % 43-65 IMMATURE GRANULOCYTE % (test code=IG%) 0.8 % 0.0-2.0 LYMPHOCYTE % (test code=LY%) 10.8 % 20.5-45.5 MONOCYTE % (test code=MO%) 8.4 % 5.5-11.7 EOSINOPHIL % (test code=EO%) 4.0 % 0.9-2.9 BASOPHIL % (test code=BA%) 0.3 % 0.2-1.0 NUCLEATED RBC % (test code=NRBC%) 0.0 % 0-1.0 NEUTROPHIL # (test code=NT#) 4.77 x10 3/uL 2.2-4.8 IMMATURE GRANULOCYTE # (test code=IG#) 0.05 x10 3/uL 0-0.03 LYMPHOCYTE # (test code=LY#) 0.68 x10 3/uL 1.3-2.9 MONOCYTE # (test code=MO#) 0.53 x10 3/uL 0.3-0.8 EOSINOPHIL # (test code=EO#) 0.25 x10 3/uL 0.0-0.2 BASOPHIL # (test code=BA#) 0.02 x10 3/uL 0.0-0.1 [id number] 18:34:00* Test Item Value Reference Range Comments GLUBED (test code=GLUBED) 94 MG/DL 74-106 [id number] 18:34:00* Test Item Value Reference Range Comments GLUBED (test code=GLUBED) 132 MG/DL 74-106 [id number] 18:34:00* Test Item Value Reference Range Comments GLUBED (test code=GLUBED) 48 MG/DL 74-106 A VENOUS SPECIMEN SHOULD BE ORDERED FOR GLUCOSE VERIFICATION IF MEDICALLY NECESSARY. [id number] 18:34:00* Test Item Value Reference Range Comments GLUBED (test code=GLUBED) 124 MG/DL 74-106 [id number] 09:51:00* Test Item Value Reference Range Comments POTASSIUM (test code=K) 4.1 mmol/L 3.4-5.0 [id number] 09:51:00* Test Item Value Reference Range Comments MAGNESIUM (test code=MAG) 2.4 mg/dL 1.6-2.3 BASIC METABOLIC [id number] 03:31:00* Test Item Value Reference Range Comments SODIUM (test code=NA) 138 mmol/L 137-145 POTASSIUM (test code=K) 3.4 mmol/L 3.4-5.0 CHLORIDE (test code=CL) 103 mmol/L 98-107 CARBON DIOXIDE (test code=CO2) 28 mmol/L 22-30 GLUCOSE (test code=GLU) 101 mg/dL 74-106 BLOOD UREA NITROGEN (test code=BUN) 15 mg/dL 9-20 GLOMERULAR FILTRATION RATE (test code=GFR) 54 >60 The estimated glomerular filtration rate is computed usingpatient race, age (>18), sex, and serum creatinine. If anyof the needed data elements are missing the Laboratory cannot compute an estimation of the glomerular filtration rate. CREATININE (test code=CREAT) 1.4 mg/dL 0.7-1.3 CALCIUM (test code=CA) 8.4 mg/dL 8.4-10.2 [id number] 03:31:00* Test Item Value Reference Range Comments MAGNESIUM (test code=MAG) 1.9 mg/dL 1.6-2.3 CARDIAC ENZYMES [id number] 03:31:00* Test Item Value Reference Range Comments TROPONIN-I (test code=TROPI) 9.16 ng/mL 0.012-0.033 Critical Value reported toFirst Name:[id number] Last Name:RESULTS READ BACK AND VERIFIEDby VANESSA, on 02/15/19, @ 0337.Please be advised of the updated reference ranges for the new Chemistry instrumentation. VITROS TROPONIN I CRITERIANORMAL PATIENT W/O CIRCULATING TNI: 0.012-0.033 ng/mLCIRCULATING TNI PRESENT: 0.034-0.119 ng/mL(MAY BE AT RISK OF AMI)AMI DIAGNOSTIC CUTOFF: >/=0.120 ng/mL~~~~~~~~~~~~~~~~~~~~~~~~~~~~~~~~~~~~~~~~~~~~~~~~~~~~~~~~~~~The use of serial sampling and testing protocol is arecommended practice.An elevated troponin level alone is often not sufficient fordiagnosis of myocardial infarction. Troponin results obtained by different assays may vary.Evaluation of the extent of myocardial damage based onincrease of troponin would be valid only if similarmethodology is used.~~~~~~~~~~~~~~~~~~~~~~~~~~~~~~~~~~~~~~~~~~~~~~~~~~~~~~~~~~~ BASIC METABOLIC [id number] 03:15:00* Test Item Value Reference Range Comments SODIUM (test code=NA) 138 mmol/L 137-145 POTASSIUM (test code=K) 3.4 mmol/L 3.4-5.0 CHLORIDE (test code=CL) 103 mmol/L 98-107 CARBON DIOXIDE (test code=CO2) 28 mmol/L 22-30 GLUCOSE (test code=GLU) 101 mg/dL 74-106 BLOOD UREA NITROGEN (test code=BUN) 15 mg/dL 9-20 GLOMERULAR FILTRATION RATE (test code=GFR) 54 >60 The estimated glomerular filtration rate is computed usingpatient race, age (>18), sex, and serum creatinine. If anyof the needed data elements are missing the Laboratory cannot compute an estimation of the glomerular filtration rate. CREATININE (test code=CREAT) 1.4 mg/dL 0.7-1.3 CALCIUM (test code=CA) 8.4 mg/dL 8.4-10.2 [id number] 03:15:00* Test Item Value Reference Range Comments MAGNESIUM (test code=MAG) 1.9 mg/dL 1.6-2.3 CARDIAC ENZYMES [id number] 03:15:00* Test Item Value Reference Range Comments TROPONIN-I (test code=TROPI) ng/mL 0.012-0.033 CBC W/AUTO [id number] 03:06:00* Test Item Value Reference Range Comments WHITE BLOOD CELL (test code=WBC) 8.1 x10 3/uL 5.0-12.0 RED BLOOD CELL (test code=RBC) 3.78 x10 6/uL 4.70-6.10 HEMOGLOBIN (test code=HGB) 8.5 g/dL 14.0-18.0 HEMATOCRIT (test code=HCT) 28.9 % 37.0-49.0 MEAN CELL VOLUME (test code=MCV) 77 fL 80-94 MEAN CELL HGB (test code=MCH) 22.5 pg 27-31 MEAN CELL HGB CONCENTRATION (test code=MCHC) 29.4 g/dL 33-37 RED CELL DISTRIBUTION WIDTH (test code=RDW) 17.3 % 11.5-15.5 PLATELET COUNT (test code=PLT) 215 x10 3/uL 130-400 MEAN PLATELET VOLUME (test code=MPV) 11.2 fL 9.4-16.4 NEUTROPHIL % (test code=NT%) 81.7 % 43-65 IMMATURE GRANULOCYTE % (test code=IG%) 0.6 % 0.0-2.0 LYMPHOCYTE % (test code=LY%) 6.9 % 20.5-45.5 MONOCYTE % (test code=MO%) 7.8 % 5.5-11.7 EOSINOPHIL % (test code=EO%) 2.6 % 0.9-2.9 BASOPHIL % (test code=BA%) 0.4 % 0.2-1.0 NUCLEATED RBC % (test code=NRBC%) 0.0 % 0-1.0 NEUTROPHIL # (test code=NT#) 6.63 x10 3/uL 2.2-4.8 IMMATURE GRANULOCYTE # (test code=IG#) 0.05 x10 3/uL 0-0.03 LYMPHOCYTE # (test code=LY#) 0.56 x10 3/uL 1.3-2.9 MONOCYTE # (test code=MO#) 0.63 x10 3/uL 0.3-0.8 EOSINOPHIL # (test code=EO#) 0.21 x10 3/uL 0.0-0.2 BASOPHIL # (test code=BA#) 0.03 x10 3/uL 0.0-0.1 HGB [id number] 14:36:00* Test Item Value Reference Range Comments HEMOGLOBIN (test code=HGB) 9.0 g/dL 14.0-18.0 HEMATOCRIT (test code=HCT) 31.0 % 37.0-49.0 BASIC METABOLIC [id number] 04:34:00* Test Item Value Reference Range Comments SODIUM (test code=NA) 139 mmol/L 137-145 POTASSIUM (test code=K) 3.8 mmol/L 3.4-5.0 CHLORIDE (test code=CL) 106 mmol/L 98-107 CARBON DIOXIDE (test code=CO2) 27 mmol/L 22-30 GLUCOSE (test code=GLU) 186 mg/dL 74-106 BLOOD UREA NITROGEN (test code=BUN) 20 mg/dL 9-20 GLOMERULAR FILTRATION RATE (test code=GFR) 54 >60 The estimated glomerular filtration rate is computed usingpatient race, age (>18), sex, and serum creatinine. If anyof the needed data elements are missing the Laboratory cannot compute an estimation of the glomerular filtration rate. CREATININE (test code=CREAT) 1.4 mg/dL 0.7-1.3 CALCIUM (test code=CA) 8.3 mg/dL 8.4-10.2 [id number] 04:34:00* Test Item Value Reference Range Comments MAGNESIUM (test code=MAG) 2.1 mg/dL 1.6-2.3 BASIC METABOLIC [id number] 04:29:00* Test Item Value Reference Range Comments SODIUM (test code=NA) 139 mmol/L 137-145 POTASSIUM (test code=K) 3.8 mmol/L 3.4-5.0 CHLORIDE (test code=CL) 106 mmol/L 98-107 CARBON DIOXIDE (test code=CO2) 27 mmol/L 22-30 GLUCOSE (test code=GLU) 186 mg/dL 74-106 BLOOD UREA NITROGEN (test code=BUN) 20 mg/dL 9-20 GLOMERULAR FILTRATION RATE (test code=GFR) 54 >60 The estimated glomerular filtration rate is computed usingpatient race, age (>18), sex, and serum creatinine. If anyof the needed data elements are missing the Laboratory cannot compute an estimation of the glomerular filtration rate. CREATININE (test code=CREAT) 1.4 mg/dL 0.7-1.3 CALCIUM (test code=CA) 8.3 mg/dL 8.4-10.2 [id number] 04:29:00* Test Item Value Reference Range Comments MAGNESIUM (test code=MAG) mg/dL 1.6-2.3 CBC W/AUTO [id number] 04:17:00* Test Item Value Reference Range Comments WHITE BLOOD CELL (test code=WBC) 5.9 x10 3/uL 5.0-12.0 RED BLOOD CELL (test code=RBC) 3.47 x10 6/uL 4.70-6.10 HEMOGLOBIN (test code=HGB) 7.8 g/dL 14.0-18.0 HEMATOCRIT (test code=HCT) 26.2 % 37.0-49.0 MEAN CELL VOLUME (test code=MCV) 76 fL 80-94 MEAN CELL HGB (test code=MCH) 22.5 pg 27-31 MEAN CELL HGB CONCENTRATION (test code=MCHC) 29.8 g/dL 33-37 RED CELL DISTRIBUTION WIDTH (test code=RDW) 17.2 % 11.5-15.5 PLATELET COUNT (test code=PLT) 196 x10 3/uL 130-400 MEAN PLATELET VOLUME (test code=MPV) 11.5 fL 9.4-16.4 NEUTROPHIL % (test code=NT%) 78.6 % 43-65 IMMATURE GRANULOCYTE % (test code=IG%) 0.5 % 0.0-2.0 LYMPHOCYTE % (test code=LY%) 8.4 % 20.5-45.5 MONOCYTE % (test code=MO%) 7.2 % 5.5-11.7 EOSINOPHIL % (test code=EO%) 4.8 % 0.9-2.9 BASOPHIL % (test code=BA%) 0.5 % 0.2-1.0 NUCLEATED RBC % (test code=NRBC%) 0.0 % 0-1.0 NEUTROPHIL # (test code=NT#) 4.61 x10 3/uL 2.2-4.8 IMMATURE GRANULOCYTE # (test code=IG#) 0.03 x10 3/uL 0-0.03 LYMPHOCYTE # (test code=LY#) 0.49 x10 3/uL 1.3-2.9 MONOCYTE # (test code=MO#) 0.42 x10 3/uL 0.3-0.8 EOSINOPHIL # (test code=EO#) 0.28 x10 3/uL 0.0-0.2 BASOPHIL # (test code=BA#) 0.03 x10 3/uL 0.0-0.1 BASIC METABOLIC [id number] 20:28:00* Test Item Value Reference Range Comments SODIUM (test code=NA) 138 mmol/L 137-145 POTASSIUM (test code=K) 4.6 mmol/L 3.4-5.0 CHLORIDE (test code=CL) 105 mmol/L 98-107 CARBON DIOXIDE (test code=CO2) 24 mmol/L 22-30 GLUCOSE (test code=GLU) 217 mg/dL 74-106 BLOOD UREA NITROGEN (test code=BUN) 24 mg/dL 9-20 GLOMERULAR FILTRATION RATE (test code=GFR) 59 >60 The estimated glomerular filtration rate is computed usingpatient race, age (>18), sex, and serum creatinine. If anyof the needed data elements are missing the Laboratory cannot compute an estimation of the glomerular filtration rate. CREATININE (test code=CREAT) 1.3 mg/dL 0.7-1.3 CALCIUM (test code=CA) 7.8 mg/dL 8.4-10.2 [id number] 20:28:00* Test Item Value Reference Range Comments MAGNESIUM (test code=MAG) 2.0 mg/dL 1.6-2.3 CARDIAC ENZYMES [id number] 20:28:00* Test Item Value Reference Range Comments TROPONIN-I (test code=TROPI) 7.33 ng/mL 0.012-0.033 Critical Value reported toFirst Name:[id number] Last Name:RESULTS READ BACK AND VERIFIEDby IZABELLAXCassie, on 02/13/19, @ 2027.Please be advised of the updated reference ranges for the new Chemistry instrumentation. VITROS TROPONIN I CRITERIANORMAL PATIENT W/O CIRCULATING TNI: 0.012-0.033 ng/mLCIRCULATING TNI PRESENT: 0.034-0.119 ng/mL(MAY BE AT RISK OF AMI)AMI DIAGNOSTIC CUTOFF: >/=0.120 ng/mL~~~~~~~~~~~~~~~~~~~~~~~~~~~~~~~~~~~~~~~~~~~~~~~~~~~~~~~~~~~The use of seria l sampling and testing protocol is arecommended practice.An elevated troponin level alone is often not sufficient fordiagnosis of myocardial infarction. Troponin results obtained by different assays may vary.Evaluation of the extent of myocardial damage based onincrease of troponin would be valid only if similarmethodology is used.~~~~~~~~~~~~~~~~~~~~~~~~~~~~~~~~~~~~~~~~~~~~~~~~~~~~~~~~~~~ BASIC METABOLIC [id number] 20:12:00* Test Item Value Reference Range Comments SODIUM (test code=NA) 138 mmol/L 137-145 POTASSIUM (test code=K) 4.6 mmol/L 3.4-5.0 CHLORIDE (test code=CL) 105 mmol/L 98-107 CARBON DIOXIDE (test code=CO2) 24 mmol/L 22-30 GLUCOSE (test code=GLU) 217 mg/dL 74-106 BLOOD UREA NITROGEN (test code=BUN) 24 mg/dL 9-20 GLOMERULAR FILTRATION RATE (test code=GFR) 59 >60 The estimated glomerular filtration rate is computed usingpatient race, age (>18), sex, and serum creatinine. If anyof the needed data elements are missing the Laboratory cannot compute an estimation of the glomerular filtration rate. CREATININE (test code=CREAT) 1.3 mg/dL 0.7-1.3 CALCIUM (test code=CA) 7.8 mg/dL 8.4-10.2 [id number] 20:12:00* Test Item Value Reference Range Comments MAGNESIUM (test code=MAG) 2.0 mg/dL 1.6-2.3 CARDIAC ENZYMES [id number] 20:12:00* Test Item Value Reference Range Comments TROPONIN-I (test code=TROPI) ng/mL 0.012-0.033 BASIC METABOLIC [id number] 20:10:00* Test Item Value Reference Range Comments SODIUM (test code=NA) 138 mmol/L 137-145 POTASSIUM (test code=K) 4.6 mmol/L 3.4-5.0 CHLORIDE (test code=CL) 105 mmol/L 98-107 CARBON DIOXIDE (test code=CO2) 24 mmol/L 22-30 GLUCOSE (test code=GLU) 217 mg/dL 74-106 BLOOD UREA NITROGEN (test code=BUN) 24 mg/dL 9-20 GLOMERULAR FILTRATION RATE (test code=GFR) 59 >60 The estimated glomerular filtration rate is computed usingpatient race, age (>18), sex, and serum creatinine. If anyof the needed data elements are missing the Laboratory cannot compute an estimation of the glomerular filtration rate. CREATININE (test code=CREAT) 1.3 mg/dL 0.7-1.3 CALCIUM (test code=CA) 7.8 mg/dL 8.4-10.2 [id number] 20:10:00* Test Item Value Reference Range Comments MAGNESIUM (test code=MAG) mg/dL 1.6-2.3 CARDIAC ENZYMES [id number] 20:10:00* Test Item Value Reference Range Comments TROPONIN-I (test code=TROPI) ng/mL 0.012-0.033 CARDIAC ENZYMES [id number] 12:05:00* Test Item Value Reference Range Comments TROPONIN-I (test code=TROPI) 6.10 ng/mL 0.012-0.033 Critical Value reported toFirst Name:[id number] Last Name:RESULTS READ BACK AND VERIFIEDby ANTHONY, on 02/13/19, @ 0501.Please be advised of the updated reference ranges for the new Chemistry instrumentation. VITROS TROPONIN I CRITERIANORMAL PATIENT W/O CIRCULATING TNI: 0.012-0.033 ng/mLCIRCULATING TNI PRESENT: 0.034-0.119 ng/mL(MAY BE AT RISK OF AMI)AMI DIAGNOSTIC CUTOFF: >/=0.120 ng/mL~~~~~~~~~~~~~~~~~~~~~~~~~~~~~~~~~~~~~~~~~~~~~~~~~~~~~~~~~~~The use of seria l sampling and testing protocol is arecommended practice.An elevated troponin level alone is often not sufficient fordiagnosis of myocardial infarction. Troponin results obtained by different assays may vary.Evaluation of the extent of myocardial damage based onincrease of troponin would be valid only if similarmethodology is used.~~~~~~~~~~~~~~~~~~~~~~~~~~~~~~~~~~~~~~~~~~~~~~~~~~~~~~~~~~~ [id number] 08:42:00* Test Item Value Reference Range Comments GLUBED (test code=GLUBED) 202 MG/DL 74-106 COMPREHENSIVE METABOLIC [id number] 06:38:00* Test Item Value Reference Range Comments SODIUM (test code=NA) 136 mmol/L 137-145 POTASSIUM (test code=K) 3.6 mmol/L 3.4-5.0 CHLORIDE (test code=CL) 97 mmol/L 98-107 CARBON DIOXIDE (test code=CO2) 24 mmol/L 22-30 GLUCOSE (test code=GLU) 464 mg/dL 74-106 Critical Value reported toFirst Name:[id number] Last Name:RESULTS READ BACK AND VERIFIEDby CNORAH, on 02/13/19, @ 0624. BLOOD UREA NITROGEN (test code=BUN) 29 mg/dL 9-20 GLOMERULAR FILTRATION RATE (test code=GFR) 38 >60 The estimated glomerular filtration rate is computed usingpatient race, age (>18), sex, and serum creatinine. If anyof the needed data elements are missing the Laboratory cannot compute an estimation of the glomerular filtration rate. CREATININE (test code=CREAT) 1.9 mg/dL 0.7-1.3 TOTAL PROTEIN (test code=PROT) 7.1 g/dL 6.3-8.2 ALBUMIN (test code=ALB) 4.0 g/dL 3.5-5.0 CALCIUM (test code=CA) 8.2 mg/dL 8.4-10.2 BILIRUBIN TOTAL (test code=BILT) 0.6 mg/dL 0.2-1.3 BILIRUBIN CONJUGATED (test code=BILCON) 0 mg/dL 0-0.3 ~~~~~~~~~~~~~~~~~~~~~~~~~~~~~~~~~~~~~~~~~~~~~~~~~~~~~~~~~~~~CONJUGATED BILIRUBIN IS THE REPLACEMENT ASSAY FOR DIRECTBILIRUBIN.~~~~~~~~~~~~~~~~~~~~~~~~~~~~~~~~~~~~~~~~~~~~~~~~~~~~~~~~~~~~ BILIRUBIN UNCONJUGATED (test code=BILUNC) 0.1 mg/dL 0-1.1 SGOT/AST (test code=AST) 50 U/L 15-46 SGPT/ALT (test code=ALT) 37 U/L 13-69 ALKALINE PHOSPHATASE (test code=ALKP) 48 U/L 38-126 [id number] 06:38:00* Test Item Value Reference Range Comments LIPASE (test code=LIP) 283 U/L 23-300 [id number] 06:38:00* Test Item Value Reference Range Comments MAGNESIUM (test code=MAG) 1.8 mg/dL 1.6-2.3 CARDIAC ENZYMES [id number] 06:38:00* Test Item Value Reference Range Comments TROPONIN-I (test code=TROPI) 0.553 ng/mL 0.012-0.033 Critical Value reported toFirst Name:[id number] Last Name:RESULTS READ BACK AND VERIFIEDby GIANLUCA, on 02/13/19, @ 0638.Please be advised of the updated reference ranges for the new Chemistry instrumentation. VITROS TROPONIN I CRITERIANORMAL PATIENT W/O CIRCULATING TNI: 0.012-0.033 ng/mLCIRCULATING TNI PRESENT: 0.034-0.119 ng/mL(MAY BE AT RISK OF AMI)AMI DIAGNOSTIC CUTOFF: >/=0.120 ng/mL~~~~~~~~~~~~~~~~~~~~~~~~~~~~~~~~~~~~~~~~~~~~~~~~~~~~~~~~~~~The use of serial sampling and testing protocol is arecommended practice.An elevated troponin level alone is often not sufficient fordiagnosis of myocardial infarction. Troponin results obtained by different assays may vary.Evaluation of the extent of myocardial damage based onincrease of troponin would be valid only if similarmethodology is used.~~~~~~~~~~~~~~~~~~~~~~~~~~~~~~~~~~~~~~~~~~~~~~~~~~~~~~~~~~~ TROPONIN I [id number] 06:34:00* Test Item Value Reference Range Comments TROPONIN I RAPID (test code=TROPIRAP) 0.33 ng/mL 0.00-0.079 ISTAT TROPONIN I CRITERIA0.00-0.08 ng/mL - Negative>0.08 ng/mL - Positive The use of serial sampling and testing protocol is arecommended practice.An elevated troponin level alone is often not sufficient fordiagnosis of myocardial infarction. Troponin results obtained by different assays may vary.Evaluation of the extent of myocardial damage based onincrease of troponin would be valid only if similarmethodology is used. CBC W/AUTO [id number] 06:24:00* Test Item Value Reference Range Comments WHITE BLOOD CELL (test code=WBC) 13.3 x10 3/uL 5.0-12.0 RED BLOOD CELL (test code=RBC) 4.48 x10 6/uL 4.70-6.10 HEMOGLOBIN (test code=HGB) 10.0 g/dL 14.0-18.0 HEMATOCRIT (test code=HCT) 34.2 % 37.0-49.0 MEAN CELL VOLUME (test code=MCV) 76 fL 80-94 MEAN CELL HGB (test code=MCH) 22.3 pg 27-31 MEAN CELL HGB CONCENTRATION (test code=MCHC) 29.2 g/dL 33-37 RED CELL DISTRIBUTION WIDTH (test code=RDW) 17.2 % 11.5-15.5 PLATELET COUNT (test code=PLT) 329 x10 3/uL 130-400 MEAN PLATELET VOLUME (test code=MPV) 11.2 fL 9.4-16.4 NEUTROPHIL % (test code=NT%) 84.2 % 43-65 IMMATURE GRANULOCYTE % (test code=IG%) 0.8 % 0.0-2.0 LYMPHOCYTE % (test code=LY%) 7.1 % 20.5-45.5 MONOCYTE % (test code=MO%) 6.3 % 5.5-11.7 EOSINOPHIL % (test code=EO%) 1.1 % 0.9-2.9 BASOPHIL % (test code=BA%) 0.5 % 0.2-1.0 NUCLEATED RBC % (test code=NRBC%) 0.0 % 0-1.0 NEUTROPHIL # (test code=NT#) 11.22 x10 3/uL 2.2-4.8 IMMATURE GRANULOCYTE # (test code=IG#) 0.11 x10 3/uL 0-0.03 LYMPHOCYTE # (test code=LY#) 0.95 x10 3/uL 1.3-2.9 MONOCYTE # (test code=MO#) 0.84 x10 3/uL 0.3-0.8 EOSINOPHIL # (test code=EO#) 0.15 x10 3/uL 0.0-0.2 BASOPHIL # (test code=BA#) 0.06 x10 3/uL 0.0-0.1 COMPREHENSIVE METABOLIC [id number] 06:24:00* Test Item Value Reference Range Comments SODIUM (test code=NA) 136 mmol/L 137-145 POTASSIUM (test code=K) 3.6 mmol/L 3.4-5.0 CHLORIDE (test code=CL) 97 mmol/L 98-107 CARBON DIOXIDE (test code=CO2) 24 mmol/L 22-30 GLUCOSE (test code=GLU) 464 mg/dL 74-106 Critical Value reported toFirst Name:[id number] Last Name:RESULTS READ BACK AND VERIFIEDby GIANLUCA, on 02/13/19, @ 0624. BLOOD UREA NITROGEN (test code=BUN) 29 mg/dL 9-20 GLOMERULAR FILTRATION RATE (test code=GFR) 38 >60 The estimated glomerular filtration rate is computed usingpatient race, age (>18), sex, and serum creatinine. If anyof the needed data elements are missing the Laboratory cannot compute an estimation of the glomerular filtration rate. CREATININE (test code=CREAT) 1.9 mg/dL 0.7-1.3 TOTAL PROTEIN (test code=PROT) 7.1 g/dL 6.3-8.2 ALBUMIN (test code=ALB) 4.0 g/dL 3.5-5.0 CALCIUM (test code=CA) 8.2 mg/dL 8.4-10.2 BILIRUBIN TOTAL (test code=BILT) 0.6 mg/dL 0.2-1.3 BILIRUBIN CONJUGATED (test code=BILCON) 0 mg/dL 0-0.3 ~~~~~~~~~~~~~~~~~~~~~~~~~~~~~~~~~~~~~~~~~~~~~~~~~~~~~~~~~~~~CONJUGATED BILIRUBIN IS THE REPLACEMENT ASSAY FOR DIRECTBILIRUBIN.~~~~~~~~~~~~~~~~~~~~~~~~~~~~~~~~~~~~~~~~~~~~~~~~~~~~~~~~~~~~ BILIRUBIN UNCONJUGATED (test code=BILUNC) 0.1 mg/dL 0-1.1 SGOT/AST (test code=AST) 50 U/L 15-46 SGPT/ALT (test code=ALT) 37 U/L 13-69 ALKALINE PHOSPHATASE (test code=ALKP) 48 U/L 38-126 [id number] 06:24:00* Test Item Value Reference Range Comments LIPASE (test code=LIP) 283 U/L 23-300 [id number] 06:24:00* Test Item Value Reference Range Comments MAGNESIUM (test code=MAG) 1.8 mg/dL 1.6-2.3 CARDIAC ENZYMES [id number] 06:24:00* Test Item Value Reference Range Comments TROPONIN-I (test code=TROPI) ng/mL 0.012-0.033 PROTHROMBIN [id number] 06:17:00* Test Item Value Reference Range Comments PROTHROMBIN TIME PATIENT (test code=PTP) 12.7 SECONDS 9.2-12.1 INTERNATIONAL NORMAL RATIO (test code=INR) 1.2 The INR is to be used only for monitoring ORAL ANTICOAGULANTTHERAPY. Indication INR Value1. Prophylaxis/treatment of: Venous Thrombosis, Pulmonary Embolism 2.0 - 3.02. Prevention of systemic embolism from: Tissue heart valves 2.0 - 3.0 Acute myocardial infarction (to present systemic embolism)* 2.0 - 3.0 Valvular heart disease 2.0 - 3.0 Atrial fibrillation 2.0 - 3.03. Mechanical prosthetic valves (high risk) 2.5 - 3.5 * If oral anticoagulant therapy is elected to preventrecurrent myocardial infarction, an INR of 2.5-3.5 isrecommended, consistent with Food and Drug Administrationrecommendations. THROMBOPLASTIN TIME [id number] 06:17:00* Test Item Value Reference Range Comments THROMBOPLASTIN TIME PARTIAL (test code=PTT) 35.7 SECONDS 23.4-37.0 Therapeutic Range for Heparin EFFECTIVE 09/22/12 Heparin IU/mL aPTT Seconds0.3 64.30.7 88.8 - XR CHEST 1 [id number] 06:10:00 [place]: [facility]: PRE Name: REJI OLSON : [birth year] Age/S: 63/M [address] Unit #: [id number] Loc: [place] [address] Phys: Shahriar Cortez MD Acct: [id number] Dis Date: Status: PRE ER PHONE #: [phone] Exam Date: 02/13/2019600 FAX #: [phone] Reason: cp EXAMS: CPT CODE: [id number] XR CHEST 1 V 36952 Dictation location: U19. CHEST, FRONTAL VIEW HISTORY: Chest pain FINDINGS: Since 01/01/19, continued cardiomegaly is noted now with mild central vascular congestion. The lungs are otherwise clear. The left pacemaker stable in position. Sternotomy wires. Dege nerative changes affect the thoracic spine. IMPRESSION: Cardiomegaly with mild central vascular congestion. at 0610 Reported and signed by: Richelle Sanabria MD CC: Technologist: Zarina Moreno Trnscrd Date/Time/By: 02/13/2019 (0610) : By: [email or web address] PAGE 1 Signed Report [place]: St: PRE------- Name: REJI BARRETT : [birth year] Age/S: 63/M [address] Unit #: [id number] Loc: [place] [address] Phys: DanaNickpaul wise MD Acct: [id number] Dis Date: Status: PRE ER PHONE #: Exam Date: 02/13/2019 06 FAX #: [phone] Reason: cp EXAMS: CPT CODE: [id number] XR CHEST 1 V [id number] <Continued> Orig Print D/T: S: 02/13/2019 (0613) PAGE 2 Signed Report TROPONIN-I [id number] 01:40:00* Test Item Value Reference Range Comments Troponin-I (test code=TROP) 0.812 ng/ml 0.000-0.034 The 99th Percentile URL is 0.045 ng/mL for the Siemens Whitwell Troponin I. The Joint Society of Cardiology/[place] [employer] (ESC/ACC) and the National Academy of Clinical Biochemistry Standards of Laboratory Practices (NACB) recommends that the diagnosis of AMI includes the presence of clinical history suggestive of Acute Coronary Syndrome (ACS) and a maximum concentration of cardiac troponin exceeding the 99th percentile of a normal reference population [upper reference limit (URL)] on at least one occasion during the first 24 hours after the clinical event. Critical values were called to Evan Harrell RN by [id number] on 02/12/19 01:40 CASE RESOLUTION SPECIALIST . Results were read back by Evan Harrell RN.PT AND [id number] 00:40:00* Test Item Value Reference Range Comments Protime (test code=PT) 11.4 seconds 9.0-11.8 INR (test code=INR) 1.1 0.9-1.1 INR results are intended ONLY to monitor Oral Anticoagulant therapy in stablized patients. The INR Therapeutic Range is 2.0 - 3.0 Patients with a mechanical heart, the INR Range is 2.5 - 3.5 [id number] 00:40:00* Test Item Value Reference Range Comments aPTT (test code=PTT) 30.3 seconds 25.3-35.7 [id number] 23:47:00* Test Item Value Reference Range Comments Lipase (test code=LIPA) 338 U/L 8-223 TSH (Ultra Sensitive)2019-02-11 23:47:00* Test Item Value Reference Range Comments TSH (test code=TSH) 2.58 mIU/L 0.47-4.68 [id number] 23:47:00* Test Item Value Reference Range Comments Glucose (test code=GLU) 306 mg/dl 75-110 BUN (test code=BUN) 30.0 mg/dl 6.0-17.0 Creatinine (test code=CREA) 2.3 mg/dl 0.4-1.2 Sodium (test code=NA) 139 mmol/l 137-145 Potassium (test code=K) 3.3 mmol/l 3.5-5.0 Chloride (test code=CL) 107 mmol/l 98-107 CO2 (test code=CO2) 26 mmol/l 22-30 Calcium (test code=CALC) 8.5 mg/dl 8.4-10.2 T Protein (test code=TP) 7.9 gm/dl 5.1-8.7 Albumin (test code=ALB) 3.7 gm/dl 3.5-4.6 A/G Ratio (test code=AGRAT) 0.9 % 1.1-2.2 AST (SGOT) (test code=AST) 18 U/L 11-36 ALT (SGPT) (test code=ALT) 27 U/L 11-40 Alkaline Phos (test code=ALKP) 63 U/L 47-114 Total Bilirubin (test code=TBIL) 0.3 mg/dl 0.2-1.2 Globulin (test code=GLOBU) 4.2 gm/dl 2.3-3.5 Calcium, Corrected (test code=CALCCORR) 8.7 mg/dl 8.4-10.2 Various formulas exist for corrected serum calcium results, each yielding different values. This corrected result was based on the formula: Corrected Calcium=SerumCalcium + [0.8 * ( 4 - SerumAlbumin)] EGFR if (test code=EGFRAA) 37 mL/min/1.73m\\S\\2 EGFR if Non- (test code=EGFRNA) 31 mL/min/1.73m\\S\\2 Estimated Glomerular Filtration Rate (eGFR) Reference Intervals Decision Points for 18 years and older and average body mass: >=60 Does not exclude kidney disease. 30 - 59 Suggests moderate chronic kidney disease and indicates the need for further investigation including assessment of proteinuria and cardiovascular factors. < 30 Usually indicates a need for referral for assessment and management of chronic kidney failure. TROPONIN-I [id number] 23:43:00* Test Item Value Reference Range Comments Troponin-I (test code=TROP) 0.058 ng/ml 0.000-0.045 The 99th Percentile URL is 0.045 ng/mL for the Siemens [place] Troponin I. The [employer] Society of Cardiology/[place] [employer] (ESC/ACC) and the National Academy of Clinical Biochemistry Standards of Laboratory Practices (NACB) recommends that the diagnosis of AMI includes the presence of clinical history suggestive of Acute Coronary Syndrome (ACS) and a maximum concentration of cardiac troponin exceeding the 99th percentile of a normal reference population [upper reference limit (URL)] on at least one occasion during the first 24 hours after the clinical event. Critical values were called to Evan Harrell RN by [id number] on 02/11/19 23:43 CASE RESOLUTION SPECIALIST . Results were read back by Evan Harrell RN.PRO-BNP(B-Type Natriuretic Peptide) 2019-02-11 23:43:00* Test Item Value Reference Range Comments Pro-BNP(B-Peptide) (test code=PROBNP) 1298 pg/ml 0-125 [id number] 23:43:00* Test Item Value Reference Range Comments CKMB (test code=CKMB) 3.10 ng/ml 0.50-3.60 [id number] 23:42:00* Test Item Value Reference Range Comments CPK (test code=CPK) 111 U/L 30-135 [id number] 23:42:00* Test Item Value Reference Range Comments Magnesium (test code=MG) 1.8 mg/dl 1.6-2.3 CBC WITH AUTO [id number] 23:36:00* Test Item Value Reference Range Comments WBC (test code=WBC) 6.82 10\\S\\3/ul 4.80-10.80 RBC (test code=RBC) 4.49 10\\S\\6/ul 4.70-6.10 Hemoglobin (test code=HGB) 10.2 gm/dl 14.0-18.0 Hematocrit (test code=HCT) 35.2 % 42.0-50.0 MCV (test code=MCV) 78.4 fL 80.0-94.0 MCH (test code=MCH) 22.7 pg 27.0-31.0 MCHC (test code=MCHC) 29.0 gm/dl 33.0-37.0 RDW (test code=RDWVC) 17.1 % 11.5-14.5 Platelet (test code=PLT) 265 10\\S\\3/ul 130-400 MPV (test code=MPV) 11.8 fL 7.4-10.4 "NOT MEASURED" RESULTS ARE DISPLAYED WHEN THE INSTRUMENT HAS A SUPPRESSED OR UNREPORTABLE RESULT. THIS WILL MOST OFTEN HAPPEN WITH THE MPV WHEN THERE IS AN ABNORMAL PLATELET DISTRIBUTION DUE TO A CR ITICAL LOW VALUE OR PLATELET CLUMPING. THE RDW MAY BE SUPPRESSED IF THERE ARE MULTIPLE PEAKS PRESENT ON THE RBC HISTOGRAM. IN THIS CASE, A MANUAL REVIEW OF THE SLIDE WILL BE PERFORMED, AND RBC MORPHOLOGY WILL BE NOTED ON THE REPORT. NE% (test code=NE) 73.3 % 42.0-75.0 LY% (test code=LY) 15.1 % 13.0-42.0 MO% (test code=MO) 6.9 % 4.0-14.0 EO% (test code=EO) 2.6 % 1.0-5.0 BA% (test code=BA) 0.6 % 0.0-3.0 IG% (test code=IG%) 1.5 % 0.0-0.4 XR CHEST AP/PA 1 [id number] 23:24:39EXAMINATION: XR CHEST AP/PA 1 VIEWINDICATION: Chest pain.COMPARISON: NoneFINDINGS:TUBES and LINES: Left- sided AICD with lead overlying the right ventricle.LUNGS: Lungs are well inflated. Central vascular congestion without evidence ofpulmonary edema. Mild patchy left basilar opacity, likely atelectasis.PLEURA: No pleural effusion or pneumothorax.HEART AND MEDIASTINUM: The cardiomediastinal silhouette is mildly enlarged.BONES AND SOFT TISSUES: No acute osseous abnormality. Status post mediansternotomy.UPPER ABDOMEN: No free air under the diaphragm.IMPRESSION:Mild cardiomegaly with central vascular congestion. No evidence of pu lmonaryedema.This final report was electronically signed by Dr Kelvin Garcia MD 11:18 PMDictated By: LISANDRO GARCIAate: 02/11/2019 23:[id number] 11:32:00* Test Item Value Reference Range Comments GLUBED (test code=GLUBED) 173 mg/dL 74-106 Performed by certified veterinary x ray operator at [facility] [id number] 07:24:00* Test Item Value Reference Range Comments GLUBED (test code=GLUBED) 150 mg/dL 74-106 Performed by certified veterinary x ray operator at [facility] [id number] 04:27:00* Test Item Value Reference Range Comments TROPONIN-I (test code=TROPI) 0.090 ng/mL 0-0.045 PREVIOUSLY CALLED COMPREHENSIVE METABOLIC [id number] 04:20:00* Test Item Value Reference Range Comments SODIUM (test code=NA) 140 mmol/L 136-145 POTASSIUM (test code=K) 3.4 mmol/L 3.5-5.1 CHLORIDE (test code=CL) 105.0 mmol/L 98-107 CARBON DIOXIDE (test code=CO2) 26.0 mmol/L 21-32 ANION GAP (test code=GAP) 12.4 10-20 GLUCOSE (test code=GLU) 155 mg/dL 74-106 BLOOD UREA NITROGEN (test code=BUN) 27 mg/dL 7-18 GLOMERULAR FILTRATION RATE (test code=GFR) 44 mL/min >=60 Estimated GFR by using Modified MDRD formula.Chronic kidney disease is defined as either kidney damageor GFR <60 mL/min/1.73 m2 for >3 months. CREATININE (test code=CREAT) 1.60 mg/dL 0.7-1.3 BUN/CREATININE RATIO (test code=BUN/CREA) 17.1 10-20 TOTAL PROTEIN (test code=PROT) 7.1 gram/dL 6.4-8.2 ALBUMIN (test code=ALB) 3.2 g/dL 3.4-5.0 GLOBULIN (test code=GLOB) 3.9 gram/dL 2.7-4.2 ALBUMIN/GLOBULIN RATIO (test code=A/G) 0.8 0.75-1.50 CALCIUM (test code=CA) 8.9 mg/dL 8.5-10.1 BILIRUBIN TOTAL (test code=BILT) 0.40 mg/dL 0.0-1.0 SGOT/AST (test code=AST) 26 IUnit/L 15-37 SGPT/ALT (test code=ALT) 28 IUnit/L 12-78 ALKALINE PHOSPHATASE TOTAL (test code=ALKP) 74 IUnit/L 45-117 Note change in reference range due to change in reagent. [id number] 04:20:00* Test Item Value Reference Range Comments PHOSPHORUS (test code=PHOS) 3.3 mg/dL 2.5-4.9 [id number] 04:20:00* Test Item Value Reference Range Comments MAGNESIUM (test code=MAG) 2.1 mg/dL 1.8-2.4 COMPREHENSIVE METABOLIC [id number] 04:12:00* Test Item Value Reference Range Comments SODIUM (test code=NA) 140 mmol/L 136-145 POTASSIUM (test code=K) 3.4 mmol/L 3.5-5.1 CHLORIDE (test code=CL) 105.0 mmol/L 98-107 CARBON DIOXIDE (test code=CO2) mmol/L 21-32 ANION GAP (test code=GAP) 10-20 GLUCOSE (test code=GLU) mg/dL 74-106 BLOOD UREA NITROGEN (test code=BUN) mg/dL 7-18 GLOMERULAR FILTRATION RATE (test code=GFR) mL/min >=60 CREATININE (test code=CREAT) mg/dL 0.7-1.3 BUN/CREATININE RATIO (test code=BUN/CREA) 10-20 TOTAL PROTEIN (test code=PROT) gram/dL 6.4-8.2 ALBUMIN (test code=ALB) g/dL 3.4-5.0 GLOBULIN (test code=GLOB) gram/dL 2.7-4.2 ALBUMIN/GLOBULIN RATIO (test code=A/G) 0.75-1.50 CALCIUM (test code=CA) mg/dL 8.5-10.1 BILIRUBIN TOTAL (test code=BILT) mg/dL 0.0-1.0 SGOT/AST (test code=AST) IUnit/L 15-37 SGPT/ALT (test code=ALT) IUnit/L 12-78 ALKALINE PHOSPHATASE TOTAL (test code=ALKP) IUnit/L 45-117 [id number] 04:12:00* Test Item Value Reference Range Comments PHOSPHORUS (test code=PHOS) mg/dL 2.5-4.9 [id number] 04:12:00* Test Item Value Reference Range Comments MAGNESIUM (test code=MAG) mg/dL 1.8-2.4 CBC W/AUTO [id number] 04:03:00* Test Item Value Reference Range Comments WHITE BLOOD CELL (test code=WBC) 5.5 K/mm3 4.5-12.5 RED BLOOD CELL (test code=RBC) 4.58 mill/mm3 4.0-5.8 HEMOGLOBIN (test code=HGB) 10.6 gram/dL 13.0-17.5 HEMATOCRIT (test code=HCT) 35.3 % 42.0-52.0 MEAN CELL VOLUME (test code=MCV) 77.1 fL 80-98 MEAN CELL HGB (test code=MCH) 23.1 picogram 27.0-33.0 MEAN CELL HGB CONCETRATION (test code=MCHC) 30.0 gram/dL 33.0-36.0 RED CELL DISTRIBUTION WIDTH (test code=RDW) 16.4 % 11.6-16.2 RED CELL DISTRIBUTION WIDTH SD (test code=RDW-SD) 45.3 fL 37.0-51.0 PLATELET COUNT (test code=PLT) 191 K/mm3 150-450 MEAN PLATELET VOLUME (test code=MPV) 10.9 fL 6.7-11.0 NEUTROPHIL % (test code=NT%) 66.2 % 39.0-69.0 IMMATURE GRANULOCYTE % (test code=IG%) 0.7 % 0.0-5.0 LYMPHOCYTE % (test code=LY%) 18.7 % 25.0-55.0 MONOCYTE % (test code=MO%) 8.8 % 0.0-10.0 EOSINOPHIL % (test code=EO%) 4.9 % 0.0-5.0 BASOPHIL % (test code=BA%) 0.7 % 0.0-1.0 NUCLEATED RBC % (test code=NRBC%) 0.0 % 0-0 NEUTROPHIL # (test code=NT#) 3.61 K/mm3 1.8-7.7 IMMATURE GRANULOCYTE # (test code=IG#) 0.04 x10 3/uL 0-0.03 LYMPHOCYTE # (test code=LY#) 1.02 K/mm3 1.0-5.0 MONOCYTE # (test code=MO#) 0.48 K/mm3 0-0.8 EOSINOPHIL # (test code=EO#) 0.27 K/mm3 0.0-0.5 BASOPHIL # (test code=BA#) 0.04 K/mm3 0.0-0.2 NUCLEATED RBC # (test code=NRBC#) 0.00 K/mm3 0.0-0.1 MANUAL DIFF REQUIRED (test code=MDIFF) NO [id number] 00:13:00* Test Item Value Reference Range Comments TROPONIN-I (test code=TROPI) 0.102 ng/mL 0-0.045 RESULT VERIFIED BY REPEAT ANALYSIS [id number] 00:13:00* Test Item Value Reference Range Comments TROPONIN-I (test code=TROPI) 0.102 ng/mL 0-0.045 RESULT VERIFIED BY REPEAT ANALYSIS [id number] 21:07:00* Test Item Value Reference Range Comments TROPONIN-I (test code=TROPI) 0.095 ng/mL 0-0.045 PREVIOUSLY CALLED [id number] 20:03:00* Test Item Value Reference Range Comments GLUBED (test code=GLUBED) 180 mg/dL 74-106 Performed by certified veterinary x ray operator at [facility] [id number] 18:27:00* Test Item Value Reference Range Comments TROPONIN-I (test code=TROPI) 0.125 ng/mL 0-0.045 PREVIOUSLY CALLED COMMENTS TO MANAGER CORPORATE RESPONSIBILITY: COLLECT 3 HOURS AFTER PREVIOUS [id number] 14:40:00* Test Item Value Reference Range Comments GLYCOSYLATED HEMOGLOBIN (HA1C) (test code=GLYHGB) 7.1 % HbA1 4.8-6.0 ESTIMATED AVERAGE GLUCOSE (test code=EAG) 157 MG/DL LIPID PROFILE (CORONARY RISK)2019-01-01 14:38:00* Test Item Value Reference Range Comments TRIGLYCERIDES (test code=TRIG) 279 mg/dL 20-150 CHOLESTEROL (test code=CHOL) 213 mg/dL 0-200 CHOLESTEROL/HDL RATIO (test code=CHOLHDL) 5.0 RATIO 0-4.9 RISK ASSOCIATED WITH CHOL/HDL RATIOS: Risk Male Female1/2 AVERAGE 3.43 3.27AVERAGE 4.97 4.442X AVERAGE 9.55 7.053X AVERAGE 23.39 11.04 REFERENCE VALUE IS RELATED TO RISK LEVELS ASRECOMMENDED BY THE [facility]. HEART, LUNG, AND BLOOD INST. HDL CHOLESTEROL (test code=HDL) 41 mg/dL 40-60 LIPOPROTEIN LDL (test code=LDL) 139 mg/dL 100-129 RN PERSONNEL, CONTACT PHYSICIAN IMMEDIATELY IF THIS IS A STROKE, AMI OR CAROTID STENOSIS PATIENT WHEN THE LDL >100 (1ST OCCURENCE, THIS ADMISSION) Reference Interval: mg/dL mmol/L Optimal <100 <2.6Near/above optimal 100-129 2.6- 3.3Borderline High 130-159 3.4-4.1High 160-189 4.1-4.9Very High >=190 >=4.9=========This LDL result is a direct measurement.========= [id number] 13:04:00* Test Item Value Reference Range Comments TROPONIN-I (test code=TROPI) 0.078 ng/mL 0-0.045 Results called to [id number] by V.LAB.CF2 01/01/19 1304Critical results verified and read back by Nurse? Y COMMENTS TO MANAGER CORPORATE RESPONSIBILITY: COLLECT 3 HOURS AFTER PREVIOUS SAMPLEURINALYSIS [id number] 11:11:00* Test Item Value Reference Range Comments UA COLOR (test code=COLU) Light-Yellow YELLOW UA APPEARANCE (test code=APPU) CLEAR CLEAR UA GLUCOSE DIPSTICK (test code=DGLUU) 50 (Trace) mg/dL NEGATIVE UA BILIRUBIN DIPSTICK (test code=BILU) NEGATIVE mg/dL NEGATIVE UA KETONE DIPSTICK (test code=KETU) NEGATIVE mg/dL NEGATIVE UA SPECIFIC GRAVITY (test code=SGU) 1.010 1.001-1.035 UA BLOOD DIPSTICK (test code=RADHA) Negative mg/dL NEGATIVE UA PH DIPSTICK (test code=JAVIER) 5.0 5.0-8.0 UA PROTEIN DIPSTICK (test code=PROU) NEGATIVE mg/dL NEGATIVE UA UROBILINIOGEN DIPSTICK (test code=URO) Normal mg/dL NEGATIVE UA NITRITE DIPSTICK (test code=LIVE) NEGATIVE NEGATIVE UA LEUKOCYTE ESTERASE W REFLEX (test code=LEUUR) NEGATIVE Bran/uL NEGATIVE UA WBC (test code=WBCU) 0-5 per HPF 0-5 UA RBC (test code=RBCU) NONE SEEN #/HPF 0-5 UA EPITHELIAL CELLS (test code=EPIU) None seen per HPF FEW UA BACTERIA (test code=BACU) FEW #/HPF NONE UA HYALINE CAST (test code=HYALU) 3-5 #/LPF 0-5 Urine Source? Clean CatchURINALYSIS [id number] 11:10:00* Test Item Value Reference Range Comments UA COLOR (test code=COLU) Light-Yellow YELLOW UA APPEARANCE (test code=APPU) CLEAR CLEAR UA GLUCOSE DIPSTICK (test code=DGLUU) 50 (Trace) mg/dL NEGATIVE UA BILIRUBIN DIPSTICK (test code=BILU) NEGATIVE mg/dL NEGATIVE UA KETONE DIPSTICK (test code=KETU) NEGATIVE mg/dL NEGATIVE UA SPECIFIC GRAVITY (test code=SGU) 1.010 1.001-1.035 UA BLOOD DIPSTICK (test code=RADHA) Negative mg/dL NEGATIVE UA PH DIPSTICK (test code=JAVIER) 5.0 5.0-8.0 UA PROTEIN DIPSTICK (test code=PROU) NEGATIVE mg/dL NEGATIVE UA UROBILINIOGEN DIPSTICK (test code=URO) Normal mg/dL NEGATIVE UA NITRITE DIPSTICK (test code=LIVE) NEGATIVE NEGATIVE UA LEUKOCYTE ESTERASE W REFLEX (test code=LEUUR) NEGATIVE Bran/uL NEGATIVE UA WBC (test code=WBCU) per HPF 0-5 UA RBC (test code=RBCU) per HPF 0-5 UA EPITHELIAL CELLS (test code=EPIU) per HPF Few UA BACTERIA (test code=BACU) per HPF NONE Urine Source? Clean CatchB-TYPE NATRIURETIC [id number] 09:16:00* Test Item Value Reference Range Comments B-TYPE NATRIURETIC PEPTIDE (test code=BNP) 290.15 pgram/mL 0-100 BASIC METABOLIC [id number] 08:30:00* Test Item Value Reference Range Comments SODIUM (test code=NA) 141 mmol/L 136-145 POTASSIUM (test code=K) 3.7 mmol/L 3.5-5.1 CHLORIDE (test code=CL) 108.0 mmol/L 98-107 CARBON DIOXIDE (test code=CO2) 25.0 mmol/L 21-32 ANION GAP (test code=GAP) 11.7 10-20 GLUCOSE (test code=GLU) 210 mg/dL 74-106 BLOOD UREA NITROGEN (test code=BUN) 24 mg/dL 7-18 GLOMERULAR FILTRATION RATE (test code=GFR) 44 mL/min >=60 Estimated GFR by using Modified MDRD formula.Chronic kidney disease is defined as either kidney damageor GFR <60 mL/min/1.73 m2 for >3 months. CREATININE (test code=CREAT) 1.60 mg/dL 0.7-1.3 BUN/CREATININE RATIO (test code=BUN/CREA) 15.4 10-20 CALCIUM (test code=CA) 8.9 mg/dL 8.5-10.1 HEPATIC FUNCTION [id number] 08:30:00* Test Item Value Reference Range Comments TOTAL PROTEIN (test code=PROT) 7.6 gram/dL 6.4-8.2 ALBUMIN (test code=ALB) 3.4 g/dL 3.4-5.0 GLOBULIN (test code=GLOB) 4.2 gram/dL 2.7-4.2 ALBUMIN/GLOBULIN RATIO (test code=A/G) 0.8 0.75-1.50 BILIRUBIN TOTAL (test code=BILT) 0.30 mg/dL 0.0-1.0 BILIRUBIN DIRECT (test code=BILD) 0.10 mg/dL 0.0-0.20 SGOT/AST (test code=AST) 22 IUnit/L 15-37 SGPT/ALT (test code=ALT) 27 IUnit/L 12-78 ALKALINE PHOSPHATASE TOTAL (test code=ALKP) 77 IUnit/L 45-117 Note change in reference range due to change in reagent. [id number] 08:30:00* Test Item Value Reference Range Comments LIPASE (test code=LIP) 205 U/L 73.0-393.0 [id number] 08:30:00* Test Item Value Reference Range Comments MAGNESIUM (test code=MAG) 2.0 mg/dL 1.8-2.4 [id number] 08:30:00* Test Item Value Reference Range Comments TROPONIN-I (test code=TROPI) <0.015 ng/mL 0-0.045 PROTHROMBIN [id number] 08:20:00* Test Item Value Reference Range Comments PROTHROMBIN TIME PATIENT (test code=PTP) 11.2 seconds 9.0-14.0 INTERNATIONAL NORMAL RATIO (test code=INR) 0.9 0.8-1.2 The therapeutic range for oral anticoagulant therapy formost indications is an international normalized ratio (INR)of between 2.0 and 3.0. The recommended therapeutic INRrange for various clinical situations is listed below: Clinical Situation INR range Pulmonary e mbolism treatment (2.0-3.0)Venous thrombosis treatmentVenous thrombosis prophylaxis (high risk surgery)Prevention of systemic embolism from: Acute myocardial infarction Valvular heart disease Atrial fibrillation Mechanical prosthetic heart valves (2.5-3.5) IS PATIENT ON ANTICOAGULANTS? NTHROMBOPLASTIN TIME [id number] 08:20:00* Test Item Value Reference Range Comments THROMBOPLASTIN TIME PARTIAL (test code=PTT) 37.5 seconds 25.0-36.5 IS PATIENT ON ANTICOAGULANTS? NBASIC METABOLIC [id number] 08:18:00* Test Item Value Reference Range Comments SODIUM (test code=NA) 141 mmol/L 136-145 POTASSIUM (test code=K) 3.7 mmol/L 3.5-5.1 CHLORIDE (test code=CL) 108.0 mmol/L 98-107 CARBON DIOXIDE (test code=CO2) mmol/L 21-32 ANION GAP (test code=GAP) 10-20 GLUCOSE (test code=GLU) mg/dL 74-106 BLOOD UREA NITROGEN (test code=BUN) mg/dL 7-18 GLOMERULAR FILTRATION RATE (test code=GFR) mL/min >=60 CREATININE (test code=CREAT) mg/dL 0.7-1.3 BUN/CREATININE RATIO (test code=BUN/CREA) 10-20 CALCIUM (test code=CA) mg/dL 8.5-10.1 HEPATIC FUNCTION [id number] 08:18:00* Test Item Value Reference Range Comments TOTAL PROTEIN (test code=PROT) gram/dL 6.4-8.2 ALBUMIN (test code=ALB) g/dL 3.4-5.0 GLOBULIN (test code=GLOB) gram/dL 2.7-4.2 ALBUMIN/GLOBULIN RATIO (test code=A/G) 0.75-1.50 BILIRUBIN TOTAL (test code=BILT) mg/dL 0.0-1.0 BILIRUBIN DIRECT (test code=BILD) mg/dL 0.0-0.20 SGOT/AST (test code=AST) IUnit/L 15-37 SGPT/ALT (test code=ALT) IUnit/L 12-78 ALKALINE PHOSPHATASE TOTAL (test code=ALKP) IUnit/L 45-117 [id number] 08:18:00* Test Item Value Reference Range Comments LIPASE (test code=LIP) U/L 73.0-393.0 [id number] 08:18:00* Test Item Value Reference Range Comments MAGNESIUM (test code=MAG) mg/dL 1.8-2.4 [id number] 08:18:00* Test Item Value Reference Range Comments TROPONIN-I (test code=TROPI) ng/mL 0-0.045 CBC W/O [id number] 08:03:00* Test Item Value Reference Range Comments WHITE BLOOD CELL (test code=WBC) 5.8 K/mm3 4.5-12.5 RED BLOOD CELL (test code=RBC) 4.55 mill/mm3 4.0-5.8 HEMOGLOBIN (test code=HGB) 10.7 gram/dL 13.0-17.5 HEMATOCRIT (test code=HCT) 34.6 % 42.0-52.0 MEAN CELL VOLUME (test code=MCV) 76.0 fL 80-98 MEAN CELL HGB (test code=MCH) 23.5 picogram 27.0-33.0 MEAN CELL HGB CONCETRATION (test code=MCHC) 30.9 gram/dL 33.0-36.0 RED CELL DISTRIBUTION WIDTH (test code=RDW) 16.3 % 11.6-16.2 PLATELET COUNT (test code=PLT) 211 K/mm3 150-450 MEAN PLATELET VOLUME (test code=MPV) 11.3 fL 6.7-11.0 - XR CHEST 1 [id number] 08:03:00 FAX: Mercedes Oakley [phone] [place]: St: REG Name: REJI OLS[facility] : [birth year] 54 Age/S: 63/M [address] [facility] Unit #: [id number] Loc: [place] [address] Phys: Mercedes Chaudhari MD Acct: [id number] Dis Date: Status: REG ER PHONE #: [phone] Exam Date: 01/01/2019 0742 FAX #: [phone] Reason: CHEST PAIN EXAMS: CPT CODE: [id number] XR CHEST 1 V 00209 REASON FOR EXAM: CHEST PAIN EXAM ORDER DATE: 01/01/2019 7:06 AM Ordering Maykel: Mercedes Chaudhari MD PROCEDURE: - XR CHEST 1 V C OMPARISON: 11/24/2018 FINDINGS: Portable AP frontal view of the ch est obtained at 7:41 AM shows clear lungs without evidence of consolidatio n. There is no evidence of effusion. The heart size is minimally enlarged. Stable appearance of the left subclavian ICD. Pulmonary vasculatures are unremarkable. IMPRESSION: Minimal cardiomegaly at 0803 Reported and signed by: Memo Daily M.D. CC: Phil Chaudhari MD Technologist: Efra Mccann RT(R) Trnscrd Date/Time/By: 01/01/2019 (08) : By: CorinaVTL Orig Print D/T: S: 01/01/2019 (0806) PAGE 1 Signed Report GLUBED 2018-11-25 11:26:00* Test Item Value Reference Range Comments GLUBED (test code=GLUBED) 146 mg/dL 74-106 Performed by certified veterinary x ray operator at [facility] [id number] 07:46:00* Test Item Value Reference Range Comments GLUBED (test code=GLUBED) 122 mg/dL 74-106 Performed by certified veterinary x ray operator at [facility] COMPREHENSIVE METABOLIC [id number] 04:12:00* Test Item Value Reference Range Comments SODIUM (test code=NA) 140 mmol/L 136-145 POTASSIUM (test code=K) 3.7 mmol/L 3.5-5.1 CHLORIDE (test code=CL) 107.0 mmol/L 98-107 CARBON DIOXIDE (test code=CO2) 24.0 mmol/L 21-32 ANION GAP (test code=GAP) 12.7 10-20 GLUCOSE (test code=GLU) 126 mg/dL 74-106 BLOOD UREA NITROGEN (test code=BUN) 16 mg/dL 7-18 GLOMERULAR FILTRATION RATE (test code=GFR) 47 mL/min >=60 Estimated GFR by using Modified MDRD formula.Chronic kidney disease is defined as either kidney damageor GFR <60 mL/min/1.73 m2 for >3 months. CREATININE (test code=CREAT) 1.50 mg/dL 0.7-1.3 BUN/CREATININE RATIO (test code=BUN/CREA) 10.7 10-20 TOTAL PROTEIN (test code=PROT) 6.8 gram/dL 6.4-8.2 ALBUMIN (test code=ALB) 3.4 g/dL 3.4-5.0 GLOBULIN (test code=GLOB) 3.4 gram/dL 2.7-4.2 ALBUMIN/GLOBULIN RATIO (test code=A/G) 1.0 0.75-1.50 CALCIUM (test code=CA) 8.6 mg/dL 8.5-10.1 BILIRUBIN TOTAL (test code=BILT) 0.50 mg/dL 0.0-1.0 SGOT/AST (test code=AST) 23 IUnit/L 15-37 SGPT/ALT (test code=ALT) 23 IUnit/L 12-78 ALKALINE PHOSPHATASE TOTAL (test code=ALKP) 57 IUnit/L 45-117 Note change in reference range due to change in reagent. LIPID PROFILE (CORONARY RISK)2018-11-25 04:12:00* Test Item Value Reference Range Comments TRIGLYCERIDES (test code=TRIG) 208 mg/dL 20-150 CHOLESTEROL (test code=CHOL) 180 mg/dL 0-200 CHOLESTEROL/HDL RATIO (test code=CHOLHDL) 5.0 RATIO 0-4.9 RISK ASSOCIATED WITH CHOL/HDL RATIOS: Risk Male Female1/2 AVERAGE 3.43 3.27AVERAGE 4.97 4.442X AVERAGE 9.55 7.053X AVERAGE 23.39 11.04 REFERENCE VALUE IS RELATED TO RISK LEVELS ASRECOMMENDED BY THE [facility]. HEART, LUNG, AND BLOOD INST. HDL CHOLESTEROL (test code=HDL) 31 mg/dL 40-60 LIPOPROTEIN LDL (test code=LDL) 122 mg/dL 100-129 RN PERSONNEL, CONTACT PHYSICIAN IMMEDIATELY IF THIS IS A STROKE, AMI OR CAROTID STENOSIS PATIENT WHEN THE LDL >100 (1ST OCCURENCE, THIS ADMISSION) Reference Interval: mg/dL mmol/L Optimal <100 <2.6Near/above optimal 100-129 2.6- 3.3Borderline High 130-159 3.4-4.1High 160-189 4.1-4.9Very High >=190 >=4.9=========This LDL result is a direct measurement.========= FE W/TOTAL IRON BINDING CAP.2018-11-25 04:12:00* Test Item Value Reference Range Comments SERUM IRON (test code=IRON) 30 ug/dL 50-175 TOTAL IRON BINDING CAPACITY (test code=TIBC) 463 mcg/dL 250-450 IRON SATURATION (test code=FESAT) 6.48 % 13-45 THYROID STIMULATING [id number] 04:12:00* Test Item Value Reference Range Comments THYROID STIMULATING HORMONE (test code=TSH) 9.380 uIU/mL 0.36-3.74 TSH REFERENCE RANGES: EUTHYROID: 0.35 - 4.3 mIU/mL HYPO : > 5.5 mIU/mL HYPER : < 0.35 mIU/mL [id number] 04:12:00* Test Item Value Reference Range Comments FERRITIN (test code=EVELIN) 10 ng/mL 8-388 [id number] 04:02:00* Test Item Value Reference Range Comments TROPONIN-I (test code=TROPI) <0.015 ng/mL 0-0.045 COMMENTS TO MANAGER CORPORATE RESPONSIBILITY: COLLECT 3 HOURS AFTER PREVIOUS [id number] 04:02:00* Test Item Value Reference Range Comments GLYCOSYLATED HEMOGLOBIN (HA1C) (test code=GLYHGB) 7.1 % HbA1 4.8-6.0 ESTIMATED AVERAGE GLUCOSE (test code=EAG) 157 MG/DL COMPREHENSIVE METABOLIC [id number] 03:50:00* Test Item Value Reference Range Comments SODIUM (test code=NA) 140 mmol/L 136-145 POTASSIUM (test code=K) 3.7 mmol/L 3.5-5.1 CHLORIDE (test code=CL) 107.0 mmol/L 98-107 CARBON DIOXIDE (test code=CO2) mmol/L 21-32 ANION GAP (test code=GAP) 10-20 GLUCOSE (test code=GLU) mg/dL 74-106 BLOOD UREA NITROGEN (test code=BUN) mg/dL 7-18 GLOMERULAR FILTRATION RATE (test code=GFR) mL/min >=60 CREATININE (test code=CREAT) mg/dL 0.7-1.3 BUN/CREATININE RATIO (test code=BUN/CREA) 10-20 TOTAL PROTEIN (test code=PROT) gram/dL 6.4-8.2 ALBUMIN (test code=ALB) g/dL 3.4-5.0 GLOBULIN (test code=GLOB) gram/dL 2.7-4.2 ALBUMIN/GLOBULIN RATIO (test code=A/G) 0.75-1.50 CALCIUM (test code=CA) mg/dL 8.5-10.1 BILIRUBIN TOTAL (test code=BILT) mg/dL 0.0-1.0 SGOT/AST (test code=AST) IUnit/L 15-37 SGPT/ALT (test code=ALT) IUnit/L 12-78 ALKALINE PHOSPHATASE TOTAL (test code=ALKP) IUnit/L 45-117 LIPID PROFILE (CORONARY RISK)2018-11-25 03:50:00* Test Item Value Reference Range Comments TRIGLYCERIDES (test code=TRIG) mg/dL 20-150 CHOLESTEROL (test code=CHOL) mg/dL 0-200 CHOLESTEROL/HDL RATIO (test code=CHOLHDL) RATIO 0-4.9 HDL CHOLESTEROL (test code=HDL) mg/dL 40-60 LIPOPROTEIN LDL (test code=LDL) mg/dL 100-129 FE W/TOTAL IRON BINDING CAP.2018-11-25 03:50:00* Test Item Value Reference Range Comments SERUM IRON (test code=IRON) ug/dL 50-175 TOTAL IRON BINDING CAPACITY (test code=TIBC) mcg/dL 250-450 IRON SATURATION (test code=FESAT) % 13-45 THYROID STIMULATING [id number] 03:50:00* Test Item Value Reference Range Comments THYROID STIMULATING HORMONE (test code=TSH) uIU/mL 0.36-3.74 [id number] 03:50:00* Test Item Value Reference Range Comments FERRITIN (test code=EVELIN) ng/mL 8-388 CBC W/AUTO [id number] 03:24:00* Test Item Value Reference Range Comments WHITE BLOOD CELL (test code=WBC) 3.6 K/mm3 4.5-12.5 RED BLOOD CELL (test code=RBC) 4.03 mill/mm3 4.0-5.8 HEMOGLOBIN (test code=HGB) 9.6 gram/dL 13.0-17.5 HEMATOCRIT (test code=HCT) 32.0 % 42.0-52.0 MEAN CELL VOLUME (test code=MCV) 79.4 fL 80-98 MEAN CELL HGB (test code=MCH) 23.8 picogram 27.0-33.0 MEAN CELL HGB CONCETRATION (test code=MCHC) 30.0 gram/dL 33.0-36.0 RED CELL DISTRIBUTION WIDTH (test code=RDW) 16.5 % 11.6-16.2 RED CELL DISTRIBUTION WIDTH SD (test code=RDW-SD) 47.7 fL 37.0-51.0 PLATELET COUNT (test code=PLT) 178 K/mm3 150-450 MEAN PLATELET VOLUME (test code=MPV) 11.6 fL 6.7-11.0 NEUTROPHIL % (test code=NT%) 66.6 % 39.0-69.0 IMMATURE GRANULOCYTE % (test code=IG%) 0.5 % 0.0-5.0 LYMPHOCYTE % (test code=LY%) 18.7 % 25.0-55.0 MONOCYTE % (test code=MO%) 9.9 % 0.0-10.0 EOSINOPHIL % (test code=EO%) 3.8 % 0.0-5.0 BASOPHIL % (test code=BA%) 0.5 % 0.0-1.0 NUCLEATED RBC % (test code=NRBC%) 0.0 % 0-0 NEUTROPHIL # (test code=NT#) 2.42 K/mm3 1.8-7.7 IMMATURE GRANULOCYTE # (test code=IG#) 0.02 x10 3/uL 0-0.03 LYMPHOCYTE # (test code=LY#) 0.68 K/mm3 1.0-5.0 MONOCYTE # (test code=MO#) 0.36 K/mm3 0-0.8 EOSINOPHIL # (test code=EO#) 0.14 K/mm3 0.0-0.5 BASOPHIL # (test code=BA#) 0.02 K/mm3 0.0-0.2 NUCLEATED RBC # (test code=NRBC#) 0.00 K/mm3 0.0-0.1 MANUAL DIFF REQUIRED (test code=MDIFF) NO [id number] 23:20:00* Test Item Value Reference Range Comments TROPONIN-I (test code=TROPI) <0.015 ng/mL 0-0.045 COMMENTS TO MANAGER CORPORATE RESPONSIBILITY: COLLECT 3 HOURS AFTER PREVIOUS SAMPLE- CT CHEST W/O [id number] 23:18:00 Name: REJI BARRETT [facility] : 1955 Age/S: 63 / M [address] [facility] Unit #: [id number] Loc: [place] [address] Phys: Allison Salgado MD Acct: [id number] Dis Date: Status: ADM IN PHONE #: [phone] Exam Date: 11/24/2018 230 FAX #: [phone] Reason: hEMOPTYSIS EXAMS: CPT CODE: [id number] CT CHEST W/O CONTRAST 82122 LOCATION: T18 EXAM: CT CHEST WITHOUT CONTRAST INDICATION: hEMOPTYSIS COMPARISON: Chest x- ray November 24, 2018 TECHNIQUE: Helically acquired axial CT images of the chest were obtained. No intravenous contrast was given. Up-to-date CT equipment and radiation dose reduction techniques were utilized. Automatic exposure control was utilized. FINDINGS: Left AICD in satisfactory position. The heart is normal in size. Coronary artery calcifications noted throughout. Patient status post median sternotomy. Aorta is normal in caliber. No mediastinal or ashkan r adenopathy is seen. The trachea and main bronchi are paten t. The lungs are clear without mass, consolidation or effusion. Layering stones throughout the gallbladder present. Endplate o steophytes of the spine noted throughout. IMPRESSION: Lungs are clear. Layering stones within the gallbladder. Electronically Kelly d by Marco Antonio Tolliver M.D. on 11/24/2018 at 9483 Reported an d signed by: Marco Antonio Tolliver M.D. CC: Allison Salgado MD; Roz Ruby MD Technologist:GUIDO ARANGO RT CTDI: DLP: Trnscb Date/Time: 11/24/2018 (2315) [email or web address] Orig Print D/T: S: 11/24/2018 (6078) PAGE 1 Signed Report B-TYPE NATRIURETIC [id number] 16:21:00* Test Item Value Reference Range Comments B-TYPE NATRIURETIC PEPTIDE (test code=BNP) 330.57 pgram/mL 0-100 BASIC METABOLIC [id number] 16:17:00* Test Item Value Reference Range Comments SODIUM (test code=NA) 137 mmol/L 136-145 POTASSIUM (test code=K) 5.0 mmol/L 3.5-5.1 Specimen 1+ Hemolysed.Results MAY NOT be accurate due to hemolysis. CHLORIDE (test code=CL) 106.0 mmol/L 98-107 CARBON DIOXIDE (test code=CO2) 21.0 mmol/L 21-32 ANION GAP (test code=GAP) 15.0 10-20 GLUCOSE (test code=GLU) 169 mg/dL 74-106 BLOOD UREA NITROGEN (test code=BUN) 19 mg/dL 7-18 GLOMERULAR FILTRATION RATE (test code=GFR) 44 mL/min >=60 Estimated GFR by using Modified MDRD formula.Chronic kidney disease is defined as either kidney damageor GFR <60 mL/min/1.73 m2 for >3 months. CREATININE (test code=CREAT) 1.60 mg/dL 0.7-1.3 BUN/CREATININE RATIO (test code=BUN/CREA) 11.9 10-20 CALCIUM (test code=CA) 8.6 mg/dL 8.5-10.1 HEPATIC FUNCTION [id number] 16:17:00* Test Item Value Reference Range Comments TOTAL PROTEIN (test code=PROT) 7.3 gram/dL 6.4-8.2 ALBUMIN (test code=ALB) 3.4 g/dL 3.4-5.0 GLOBULIN (test code=GLOB) 3.9 gram/dL 2.7-4.2 ALBUMIN/GLOBULIN RATIO (test code=A/G) 0.9 0.75-1.50 BILIRUBIN TOTAL (test code=BILT) 0.60 mg/dL 0.0-1.0 BILIRUBIN DIRECT (test code=BILD) < 0.05 mg/dL 0.0-0.20 SGOT/AST (test code=AST) 64 IUnit/L 15-37 SGPT/ALT (test code=ALT) 26 IUnit/L 12-78 ALKALINE PHOSPHATASE TOTAL (test code=ALKP) 54 IUnit/L 45-117 Note change in reference range due to change in reagent. [id number] 16:17:00* Test Item Value Reference Range Comments LIPASE (test code=LIP) 99 U/L 73.0-393.0 [id number] 16:17:00* Test Item Value Reference Range Comments MAGNESIUM (test code=MAG) 2.3 mg/dL 1.8-2.4 [id number] 16:17:00* Test Item Value Reference Range Comments TROPONIN-I (test code=TROPI) <0.015 ng/mL 0-0.045 BASIC METABOLIC [id number] 16:05:00* Test Item Value Reference Range Comments SODIUM (test code=NA) 137 mmol/L 136-145 POTASSIUM (test code=K) 5.0 mmol/L 3.5-5.1 Specimen 1+ Hemolysed.Results MAY NOT be accurate due to hemolysis. CHLORIDE (test code=CL) 106.0 mmol/L 98-107 CARBON DIOXIDE (test code=CO2) mmol/L 21-32 ANION GAP (test code=GAP) 10-20 GLUCOSE (test code=GLU) mg/dL 74-106 BLOOD UREA NITROGEN (test code=BUN) mg/dL 7-18 GLOMERULAR FILTRATION RATE (test code=GFR) mL/min >=60 CREATININE (test code=CREAT) mg/dL 0.7-1.3 BUN/CREATININE RATIO (test code=BUN/CREA) 10-20 CALCIUM (test code=CA) mg/dL 8.5-10.1 HEPATIC FUNCTION [id number] 16:05:00* Test Item Value Reference Range Comments TOTAL PROTEIN (test code=PROT) gram/dL 6.4-8.2 ALBUMIN (test code=ALB) g/dL 3.4-5.0 GLOBULIN (test code=GLOB) gram/dL 2.7-4.2 ALBUMIN/GLOBULIN RATIO (test code=A/G) 0.75-1.50 BILIRUBIN TOTAL (test code=BILT) mg/dL 0.0-1.0 BILIRUBIN DIRECT (test code=BILD) mg/dL 0.0-0.20 SGOT/AST (test code=AST) IUnit/L 15-37 SGPT/ALT (test code=ALT) IUnit/L 12-78 ALKALINE PHOSPHATASE TOTAL (test code=ALKP) IUnit/L 45-117 [id number] 16:05:00* Test Item Value Reference Range Comments LIPASE (test code=LIP) U/L 73.0-393.0 [id number] 16:05:00* Test Item Value Reference Range Comments MAGNESIUM (test code=MAG) mg/dL 1.8-2.4 [id number] 16:05:00* Test Item Value Reference Range Comments TROPONIN-I (test code=TROPI) ng/mL 0-0.045 PROTHROMBIN [id number] 15:54:00* Test Item Value Reference Range Comments PROTHROMBIN TIME PATIENT (test code=PTP) 17.1 seconds 9.0-14.0 INTERNATIONAL NORMAL RATIO (test code=INR) 1.5 0.8-1.2 The therapeutic range for oral anticoagulant therapy formost indications is an international normalized ratio (INR)of between 2.0 and 3.0. The recommended therapeutic INRrange for various clinical situations is listed below: Clinical Situation INR range Pulmonary e mbolism treatment (2.0-3.0)Venous thrombosis treatmentVenous thrombosis prophylaxis (high risk surgery)Prevention of systemic embolism from: Acute myocardial infarction Valvular heart disease Atrial fibrillation Mechanical prosthetic heart valves (2.5-3.5) IS PATIENT ON ANTICOAGULANTS? NTHROMBOPLASTIN TIME [id number] 15:54:00* Test Item Value Reference Range Comments THROMBOPLASTIN TIME PARTIAL (test code=PTT) 42.7 seconds 25.0-36.5 IS PATIENT ON ANTICOAGULANTS? NCBC W/O [id number] 15:42:00* Test Item Value Reference Range Comments WHITE BLOOD CELL (test code=WBC) 4.6 K/mm3 4.5-12.5 RED BLOOD CELL (test code=RBC) 4.10 mill/mm3 4.0-5.8 HEMOGLOBIN (test code=HGB) 9.9 gram/dL 13.0-17.5 HEMATOCRIT (test code=HCT) 32.0 % 42.0-52.0 MEAN CELL VOLUME (test code=MCV) 78.0 fL 80-98 MEAN CELL HGB (test code=MCH) 24.1 picogram 27.0-33.0 MEAN CELL HGB CONCETRATION (test code=MCHC) 30.9 gram/dL 33.0-36.0 RED CELL DISTRIBUTION WIDTH (test code=RDW) 16.4 % 11.6-16.2 PLATELET COUNT (test code=PLT) 184 K/mm3 150-450 MEAN PLATELET VOLUME (test code=MPV) 11.3 fL 6.7-11.0 - XR CHEST 1 [id number] 15:07:00 FAX: Josie Galvez MD [phone] [place]: St: REG Name: REJI OLSON [facility] : [birth year] Age/S: 63/M [address] [facility] Unit #: [id number] Loc: [place] [address] Phys: Josie Galvez MD Acct: [id number] Dis Date: Status: REG ER PHONE #: [phone] Exam Date: 11/24/2018 6964 FAX #: [phone] Reason: CHEST PAIN EXAMS: CPT CODE: [id number] XR CHEST 1 V 14312 REASON FOR EXAM: CHEST PAIN Exam Order Date: 11/24/2018 2:45 PM Ordering MJosefina: Josie Galvez MD PROCEDURE: - XR CHEST 1 V COMP ARISON: Frontal chest x-ray November 12, 2018 FINDINGS: The lungs are clear. There is no pleural effusion or pneumothorax. Pulmonary vascularity is within normal limits. Cardiomediastinal silhouette is prominent but stable. The mediastinal contours are within normal limits . Left subclavian ICD is unchanged in position. Sternotomy w ires and other musculoskeletal findings are unchanged. The visualized uppe r abdomen is within normal limits. IMPRESSION: N o acute cardiopulmonary process. Previously seen pulmonary vascular engo rgement is no longer present. Cardiomegaly is unchanged. Electronica lly Signed by Tony El MD on 11/24/2018 at 1507 Repor jose c and signed by: Tony El MD CC: Josie Galvez MD Technologist: RT FERDINAND(R) Trnmtrd Date/Time/By: 11/24/2018 (2786) : By: [email or web address] Orig Print D/T: S: 11/24/2018 (4545) PAGE 1 Signed Report [id number] 15:26:00* Test Item Value Reference Range Comments TROPONIN-I (test code=TROPI) <0.015 ng/mL 0-0.045 NEW TROPI TO BE COLLECT @1300 3 HOURS AFTER PREVIOUS V.LAB.EP 11/12/18 1109COMME NTS TO MANAGER CORPORATE RESPONSIBILITY: COLLECT 3 HOURS AFTER PREVIOUS SA [id number] 11:59:00* Test Item Value Reference Range Comments TROPONIN-I (test code=TROPI) <0.015 ng/mL 0-0.045 COMMENTS TO MANAGER CORPORATE RESPONSIBILITY: COLLECT 3 HOURS AFTER PREVIOUS [id number] 11:27:00* Test Item Value Reference Range Comments GLUBED (test code=GLUBED) 161 mg/dL 74-106 Performed by certified veterinary x ray operator at [facility] [id number] 08:58:00* Test Item Value Reference Range Comments GLUBED (test code=GLUBED) 198 mg/dL 74-106 Performed by certified veterinary x ray operator at [facility] URINALYSIS [id number] 08:07:00* Test Item Value Reference Range Comments UA COLOR (test code=COLU) YELLOW YELLOW UA APPEARANCE (test code=APPU) CLOUDY CLEAR UA GLUCOSE DIPSTICK (test code=DGLUU) 70-100 (1+) mg/dL NEGATIVE UA BILIRUBIN DIPSTICK (test code=BILU) NEGATIVE NEGATIVE UA KETONE DIPSTICK (test code=KETU) NEGATIVE mg/dL NEGATIVE UA SPECIFIC GRAVITY (test code=SGU) 1.010 1.001-1.035 UA BLOOD DIPSTICK (test code=RADHA) NEGATIVE NEGATIVE UA PH DIPSTICK (test code=JAVIER) 7.5 5.0-8.0 UA PROTEIN DIPSTICK (test code=PROU) NEGATIVE mg/dL Neg-15 UA UROBILINIOGEN DIPSTICK (test code=URO) 0.2 mg/dL 0.0-0.2 UA NITRITE DIPSTICK (test code=LIVE) NEGATIVE NEGATIVE UA LEUKOCYTE ESTERASE W REFLEX (test code=LEUUR) NEGATIVE NEGATIVE UA WBC (test code=WBCU) 0-5 per HPF 0-5 UA RBC (test code=RBCU) 0-2 #/HPF 0-5 UA EPITHELIAL CELLS (test code=EPIU) None seen per HPF FEW UA BACTERIA (test code=BACU) FEW #/HPF NONE UA AMORPHOUS SEDIMENT (test code=AMORU) FEW #/LPF Urine Source? Clean CatchDRUGS OF ABUSE SCREEN [id number] 08:07:00* Test Item Value Reference Range Comments URN COCAINE (test code=COCAURN) NEGATIVE <300 ng/mL URN CANNABINOIDS (test code=CANNABURN) NEGATIVE <50 ng/mL URN AMPHETAMINE (test code=AMPHETURN) NEGATIVE <1000 ng/mL URN BARBITURATE (test code=BARBITURN) NEGATIVE <200 ng/mL URN BENZODIAZEPINE (test code=BENZOURN) NEGATIVE <200 ng/mL URN OPIATES (test code=OPIATURN) NEGATIVE <300 ng/mL URN PHENCYCLIDINE (PCP) (test code=PHENCURN) NEGATIVE <25 ng/mL URN METHADONE (test code=METHAURN) NEGATIVE <300 ng/mL Urine Source? Clean CatchURINALYSIS [id number] 07:57:00* Test Item Value Reference Range Comments UA COLOR (test code=COLU) YELLOW YELLOW UA APPEARANCE (test code=APPU) CLOUDY CLEAR UA GLUCOSE DIPSTICK (test code=DGLUU) 70-100 (1+) mg/dL NEGATIVE UA BILIRUBIN DIPSTICK (test code=BILU) NEGATIVE NEGATIVE UA KETONE DIPSTICK (test code=KETU) NEGATIVE mg/dL NEGATIVE UA SPECIFIC GRAVITY (test code=SGU) 1.010 1.001-1.035 UA BLOOD DIPSTICK (test code=RADHA) NEGATIVE NEGATIVE UA PH DIPSTICK (test code=JAVIER) 7.5 5.0-8.0 UA PROTEIN DIPSTICK (test code=PROU) NEGATIVE mg/dL Neg-15 UA UROBILINIOGEN DIPSTICK (test code=URO) 0.2 mg/dL 0.0-0.2 UA NITRITE DIPSTICK (test code=LIVE) NEGATIVE NEGATIVE UA LEUKOCYTE ESTERASE W REFLEX (test code=LEUUR) NEGATIVE NEGATIVE UA WBC (test code=WBCU) 0-5 per HPF 0-5 UA RBC (test code=RBCU) 0-2 #/HPF 0-5 UA EPITHELIAL CELLS (test code=EPIU) None seen per HPF FEW UA BACTERIA (test code=BACU) FEW #/HPF NONE UA AMORPHOUS SEDIMENT (test code=AMORU) FEW #/LPF Urine Source? Clean CatchDRUGS OF ABUSE SCREEN [id number] 07:57:00* Test Item Value Reference Range Comments URN COCAINE (test code=COCAURN) <300 ng/mL URN CANNABINOIDS (test code=CANNABURN) <50 ng/mL URN AMPHETAMINE (test code=AMPHETURN) <1000 ng/mL URN BARBITURATE (test code=BARBITURN) <200 ng/mL URN BENZODIAZEPINE (test code=BENZOURN) <200 ng/mL URN OPIATES (test code=OPIATURN) <300 ng/mL URN PHENCYCLIDINE (PCP) (test code=PHENCURN) <25 ng/mL URN METHADONE (test code=METHAURN) <300 ng/mL Urine Source? Clean CatchURINALYSIS [id number] 07:52:00* Test Item Value Reference Range Comments UA COLOR (test code=COLU) YELLOW UA APPEARANCE (test code=APPU) CLEAR UA BILIRUBIN DIPSTICK (test code=BILU) NEGATIVE UA SPECIFIC GRAVITY (test code=SGU) 1.001-1.035 UA PH DIPSTICK (test code=JAVIER) 5.0-8.0 UA UROBILINIOGEN DIPSTICK (test code=URO) mg/dL 0.0-0.2 UA NITRITE DIPSTICK (test code=LIVE) NEGATIVE UA LEUKOCYTE ESTERASE W REFLEX (test code=LEUUR) NEGATIVE UA WBC (test code=WBCU) 0-5 per HPF 0-5 UA RBC (test code=RBCU) 0-2 #/HPF 0-5 UA EPITHELIAL CELLS (test code=EPIU) None seen per HPF FEW UA BACTERIA (test code=BACU) FEW #/HPF NONE UA AMORPHOUS SEDIMENT (test code=AMORU) FEW #/LPF Urine Source? Clean CatchDRUGS OF ABUSE SCREEN [id number] 07:52:00* Test Item Value Reference Range Comments URN COCAINE (test code=COCAURN) <300 ng/mL URN CANNABINOIDS (test code=CANNABURN) <50 ng/mL URN AMPHETAMINE (test code=AMPHETURN) <1000 ng/mL URN BARBITURATE (test code=BARBITURN) <200 ng/mL URN BENZODIAZEPINE (test code=BENZOURN) <200 ng/mL URN OPIATES (test code=OPIATURN) <300 ng/mL URN PHENCYCLIDINE (PCP) (test code=PHENCURN) <25 ng/mL URN METHADONE (test code=METHAURN) <300 ng/mL Urine Source? Clean CatchB-TYPE NATRIURETIC [id number] 04:33:00* Test Item Value Reference Range Comments B-TYPE NATRIURETIC PEPTIDE (test code=BNP) 369.76 pgram/mL 0-100 BASIC METABOLIC [id number] 04:28:00* Test Item Value Reference Range Comments SODIUM (test code=NA) 138 mmol/L 136-145 POTASSIUM (test code=K) 3.9 mmol/L 3.5-5.1 CHLORIDE (test code=CL) 105.0 mmol/L 98-107 CARBON DIOXIDE (test code=CO2) 26.0 mmol/L 21-32 ANION GAP (test code=GAP) 10.9 10-20 GLUCOSE (test code=GLU) 211 mg/dL 74-106 BLOOD UREA NITROGEN (test code=BUN) 22 mg/dL 7-18 GLOMERULAR FILTRATION RATE (test code=GFR) 41 mL/min >=60 Estimated GFR by using Modified MDRD formula.Chronic kidney disease is defined as either kidney damageor GFR <60 mL/min/1.73 m2 for >3 months. CREATININE (test code=CREAT) 1.70 mg/dL 0.7-1.3 BUN/CREATININE RATIO (test code=BUN/CREA) 13.2 10-20 CALCIUM (test code=CA) 8.5 mg/dL 8.5-10.1 HEPATIC FUNCTION [id number] 04:28:00* Test Item Value Reference Range Comments TOTAL PROTEIN (test code=PROT) 6.9 gram/dL 6.4-8.2 ALBUMIN (test code=ALB) 3.3 g/dL 3.4-5.0 GLOBULIN (test code=GLOB) 3.6 gram/dL 2.7-4.2 ALBUMIN/GLOBULIN RATIO (test code=A/G) 0.9 0.75-1.50 BILIRUBIN TOTAL (test code=BILT) 0.40 mg/dL 0.0-1.0 BILIRUBIN DIRECT (test code=BILD) 0.14 mg/dL 0.0-0.20 SGOT/AST (test code=AST) 17 IUnit/L 15-37 SGPT/ALT (test code=ALT) 19 IUnit/L 12-78 ALKALINE PHOSPHATASE TOTAL (test code=ALKP) 51 IUnit/L 45-117 Note change in reference range due to change in reagent. [id number] 04:28:00* Test Item Value Reference Range Comments LIPASE (test code=LIP) 185 U/L 73.0-393.0 [id number] 04:28:00* Test Item Value Reference Range Comments TROPONIN-I (test code=TROPI) <0.015 ng/mL 0-0.045 - CT HEAD/BRAIN W/O [id number] 04:19:00 Name: REJI BARRETT [facility] : 1955 Age/S: 63 / M [address] Unit #: [id number] Loc: [place] [address] Phys: Ace Boss MD Acct: [id number] Dis Date: Status: REG ER PHONE #: [phone] Exam Date: 11/12/2018 0408 FAX #: [phone] Reason: vertigo, dizziness EXAMS: CPT CODE: [id number] CT HEAD/BRAIN W/O CONT 63532 EXAM: - CT HEAD/BRAIN W/O CONT HISTORY: Dizziness. TECHNIQUE: Axial tomograms through the brain were obtained without intravenous contrast. This exam was performed according to our departmental dose-optimization program, which includes automated exposure control, adjustment of the mA and/or kV according to patient size and/or use of iterative reconstruction technique. COMPARISON: October 14, 2007. FINDINGS: There is no intracranial hemorrhage, mass, or mass effect. The ventricular system and sulci are age-appropriate. There is no evidence of acute infarction. The osseous structures and orbits, show no significant abnormalities. The visualized sinuses are relatively clear. The soft tissues are unremarkable. IMPRESSION: No acute intracranial abnormality with no evidence of intracranial hemorrhage. at 0419 Reported and signed by: Bennie Kerr MD CC: Ace Boss MD Technologist:SHIRA SALINAS CTDI: DLP: Trnscb Date/Time: 11/12/2018 (0419) [email or web address] Orig Print D/T: S: 11/12/2018 (0422) PAGE 1 Signed Report PROTHROMBIN [id number] 04:17:00* Test Item Value Reference Range Comments PROTHROMBIN TIME PATIENT (test code=PTP) 15.9 seconds 9.0-14.0 INTERNATIONAL NORMAL RATIO (test code=INR) 1.4 0.8-1.2 The therapeutic range for oral anticoagulant therapy formost indications is an international normalized ratio (INR)of between 2.0 and 3.0. The recommended therapeutic INRrange for various clinical situations is listed below: Clinical Situation INR range Pulmonary e mbolism treatment (2.0-3.0)Venous thrombosis treatmentVenous thrombosis prophylaxis (high risk surgery)Prevention of systemic embolism from: Acute myocardial infarction Valvular heart disease Atrial fibrillation Mechanical prosthetic heart valves (2.5-3.5) IS PATIENT ON ANTICOAGULANTS? NTHROMBOPLASTIN TIME [id number] 04:17:00* Test Item Value Reference Range Comments THROMBOPLASTIN TIME PARTIAL (test code=PTT) 43.9 seconds 25.0-36.5 IS PATIENT ON ANTICOAGULANTS? NBASIC METABOLIC [id number] 04:12:00* Test Item Value Reference Range Comments SODIUM (test code=NA) 138 mmol/L 136-145 POTASSIUM (test code=K) 3.9 mmol/L 3.5-5.1 CHLORIDE (test code=CL) 105.0 mmol/L 98-107 CARBON DIOXIDE (test code=CO2) mmol/L 21-32 ANION GAP (test code=GAP) 10-20 GLUCOSE (test code=GLU) mg/dL 74-106 BLOOD UREA NITROGEN (test code=BUN) mg/dL 7-18 GLOMERULAR FILTRATION RATE (test code=GFR) mL/min >=60 CREATININE (test code=CREAT) mg/dL 0.7-1.3 BUN/CREATININE RATIO (test code=BUN/CREA) 10-20 CALCIUM (test code=CA) mg/dL 8.5-10.1 HEPATIC FUNCTION [id number] 04:12:00* Test Item Value Reference Range Comments TOTAL PROTEIN (test code=PROT) gram/dL 6.4-8.2 ALBUMIN (test code=ALB) g/dL 3.4-5.0 GLOBULIN (test code=GLOB) gram/dL 2.7-4.2 ALBUMIN/GLOBULIN RATIO (test code=A/G) 0.75-1.50 BILIRUBIN TOTAL (test code=BILT) mg/dL 0.0-1.0 BILIRUBIN DIRECT (test code=BILD) mg/dL 0.0-0.20 SGOT/AST (test code=AST) IUnit/L 15-37 SGPT/ALT (test code=ALT) IUnit/L 12-78 ALKALINE PHOSPHATASE TOTAL (test code=ALKP) IUnit/L 45-117 [id number] 04:12:00* Test Item Value Reference Range Comments LIPASE (test code=LIP) U/L 73.0-393.0 [id number] 04:12:00* Test Item Value Reference Range Comments TROPONIN-I (test code=TROPI) ng/mL 0-0.045 CBC W/O [id number] 04:09:00* Test Item Value Reference Range Comments WHITE BLOOD CELL (test code=WBC) 3.7 K/mm3 4.5-12.5 RED BLOOD CELL (test code=RBC) 3.74 mill/mm3 4.0-5.8 HEMOGLOBIN (test code=HGB) 9.1 gram/dL 13.0-17.5 HEMATOCRIT (test code=HCT) 29.8 % 42.0-52.0 MEAN CELL VOLUME (test code=MCV) 79.7 fL 80-98 MEAN CELL HGB (test code=MCH) 24.3 picogram 27.0-33.0 MEAN CELL HGB CONCETRATION (test code=MCHC) 30.5 gram/dL 33.0-36.0 RED CELL DISTRIBUTION WIDTH (test code=RDW) 17.2 % 11.6-16.2 PLATELET COUNT (test code=PLT) 158 K/mm3 150-450 MEAN PLATELET VOLUME (test code=MPV) 11.1 fL 6.7-11.0 - XR CHEST 1 [id number] 04:08:00 FAX: Ace Boss [place]: B St: REG Name: REJI OLSON [facility] : [birth year] Age/S: 63/M [address] [facility] Unit #: [id number] Loc: [place] [address] Phys: Ace Boss MD Acct: [id number] Dis Date: Status: REG ER PHONE #: [phone] Exam Date: 11/12/2018 0357 FAX #: [phone] Reason: CHEST PAIN EXAMS: CPT CODE: [id number] XR CHEST 1 V [id number] EXAM: - XR CHEST 1 V HISTORY: Chest pain. COMPARISON: September 13, 2018. FIN DINGS: Single AP view of the chest is provided. Status post median sternotomy. Cardiac pacemaker/AICD is present. Cardiomegaly. Mild p ulmonary edema. There is no focal consolidation, pleural effusion or pneum othorax. IMPRESSION: CHF. Electronic ally Signed by Bennie Kerr MD on 11/12/2018 at 0408 R eported and signed by: Bennie Kerr MD CC: Yeni Boss MD Technologist: Brea Amador Trnscrd Date/Time/By: 11/12/2018 (0408) : By: dwaine [email or web address] Orig Print D/T: S: 11/12/2018 (0411) PAGE 1 Signed Report TROPONIN I [id number] 04:07:00* Test Item Value Reference Range Comments TROPONIN I RAPID (test code=TROPIRAP) 0.02 ng/mL <0.08 Please Note New Reference Range 0.00-0.079 ng/mL - Negative>or=0.08 ng/mL - Positive The use of serial sampling and testing protocol is arecommended practice.An elevated troponin level alone is often not sufficient fordiagnosis of myocardial infarction. Troponin results obtained by different assays may vary.Evaluation of the extent of myocardial damage based onincrease of troponin would be valid only if similarmethodology is used. [id number] 11:38:00* Test Item Value Reference Range Comments GLUBED (test code=GLUBED) 190 mg/dL 74-106 Performed by certified veterinary x ray operator at [facility] [id number] 06:21:00* Test Item Value Reference Range Comments GLUBED (test code=GLUBED) 158 mg/dL 74-106 Performed by certified veterinary x ray operator at [facility] BASIC METABOLIC [id number] 04:46:00* Test Item Value Reference Range Comments SODIUM (test code=NA) 137 mmol/L 136-145 RESULT VERIFIED BY REPEAT ANALYSIS POTASSIUM (test code=K) 3.5 mmol/L 3.5-5.1 CHLORIDE (test code=CL) 105.0 mmol/L 98-107 CARBON DIOXIDE (test code=CO2) 26.0 mmol/L 21-32 ANION GAP (test code=GAP) 9.5 10-20 GLUCOSE (test code=GLU) 169 mg/dL 74-106 BLOOD UREA NITROGEN (test code=BUN) 25 mg/dL 7-18 GLOMERULAR FILTRATION RATE (test code=GFR) 41 mL/min >=60 Estimated GFR by using Modified MDRD formula.Chronic kidney disease is defined as either kidney damageor GFR <60 mL/min/1.73 m2 for >3 months. CREATININE (test code=CREAT) 1.70 mg/dL 0.7-1.3 BUN/CREATININE RATIO (test code=BUN/CREA) 14.7 10-20 CALCIUM (test code=CA) 8.9 mg/dL 8.5-10.1 LIPID PROFILE (CORONARY RISK)2018-09-14 04:46:00* Test Item Value Reference Range Comments TRIGLYCERIDES (test code=TRIG) 213 mg/dL 20-150 CHOLESTEROL (test code=CHOL) 185 mg/dL 0-200 CHOLESTEROL/HDL RATIO (test code=CHOLHDL) 5.0 RATIO 0-4.9 RISK ASSOCIATED WITH CHOL/HDL RATIOS: Risk Male Female1/2 AVERAGE 3.43 3.27AVERAGE 4.97 4.442X AVERAGE 9.55 7.053X AVERAGE 23.39 11.04 REFERENCE VALUE IS RELATED TO RISK LEVELS ASRECOMMENDED BY THE [facility]. HEART, LUNG, AND BLOOD INST. HDL CHOLESTEROL (test code=HDL) 37 mg/dL 40-60 LIPOPROTEIN LDL (test code=LDL) 123 mg/dL 100-129 RN PERSONNEL, CONTACT PHYSICIAN IMMEDIATELY IF THIS IS A STROKE, AMI OR CAROTID STENOSIS PATIENT WHEN THE LDL >100 (1ST OCCURENCE, THIS ADMISSION) Reference Interval: mg/dL mmol/L Optimal <100 <2.6Near/above optimal 100-129 2.6- 3.3Borderline High 130-159 3.4-4.1High 160-189 4.1-4.9Very High >=190 >=4.9=========This LDL result is a direct measurement.========= [id number] 04:46:00* Test Item Value Reference Range Comments MAGNESIUM (test code=MAG) 2.0 mg/dL 1.8-2.4 [id number] 04:25:00* Test Item Value Reference Range Comments GLYCOSYLATED HEMOGLOBIN (HA1C) (test code=GLYHGB) 6.8 % HbA1 4.8-6.0 ESTIMATED AVERAGE GLUCOSE (test code=EAG) 148 MG/DL CBC W/O [id number] 04:21:00* Test Item Value Reference Range Comments WHITE BLOOD CELL (test code=WBC) 4.9 K/mm3 4.5-12.5 RED BLOOD CELL (test code=RBC) 4.16 mill/mm3 4.0-5.8 HEMOGLOBIN (test code=HGB) 10.1 gram/dL 13.0-17.5 HEMATOCRIT (test code=HCT) 32.8 % 42.0-52.0 MEAN CELL VOLUME (test code=MCV) 78.8 fL 80-98 MEAN CELL HGB (test code=MCH) 24.3 picogram 27.0-33.0 MEAN CELL HGB CONCETRATION (test code=MCHC) 30.8 gram/dL 33.0-36.0 RED CELL DISTRIBUTION WIDTH (test code=RDW) 17.9 % 11.6-16.2 PLATELET COUNT (test code=PLT) 216 K/mm3 150-450 MEAN PLATELET VOLUME (test code=MPV) 10.8 fL 6.7-11.0 [id number] 21:54:00* Test Item Value Reference Range Comments GLUBED (test code=GLUBED) 144 mg/dL 74-106 Performed by certified veterinary x ray operator at [facility] [id number] 16:53:00* Test Item Value Reference Range Comments TROPONIN-I (test code=TROPI) 0.871 ng/mL 0-0.045 RESULT VERIFIED BY REPEAT ANALYSIS COMMENTS TO MANAGER CORPORATE RESPONSIBILITY: COLLECT 3 HOURS AFTER PREVIOUS [id number] 13:48:00* Test Item Value Reference Range Comments TROPONIN-I (test code=TROPI) 0.459 ng/mL 0-0.045 Results called to [id number] by CYNDY 09/13/18 1345Critical results verified and read back by Nurse? Y COMMENTS TO MANAGER CORPORATE RESPONSIBILITY: COLLECT 3 HOURS AFTER PREVIOUS SAMPLEB-TYPE NATRIURETIC [id number] 07:52:00* Test Item Value Reference Range Comments B-TYPE NATRIURETIC PEPTIDE (test code=BNP) 197.37 pgram/mL 0-100 BASIC METABOLIC [id number] 07:31:00* Test Item Value Reference Range Comments SODIUM (test code=NA) 142 mmol/L 136-145 POTASSIUM (test code=K) 3.2 mmol/L 3.5-5.1 CHLORIDE (test code=CL) 110.0 mmol/L 98-107 CARBON DIOXIDE (test code=CO2) 24.0 mmol/L 21-32 ANION GAP (test code=GAP) 11.2 10-20 GLUCOSE (test code=GLU) 196 mg/dL 74-106 BLOOD UREA NITROGEN (test code=BUN) 22 mg/dL 7-18 GLOMERULAR FILTRATION RATE (test code=GFR) 47 mL/min >=60 Estimated GFR by using Modified MDRD formula.Chronic kidney disease is defined as either kidney damageor GFR <60 mL/min/1.73 m2 for >3 months. CREATININE (test code=CREAT) 1.50 mg/dL 0.7-1.3 BUN/CREATININE RATIO (test code=BUN/CREA) 14.6 10-20 CALCIUM (test code=CA) 9.1 mg/dL 8.5-10.1 [id number] 07:31:00* Test Item Value Reference Range Comments MAGNESIUM (test code=MAG) 1.9 mg/dL 1.8-2.4 [id number] 07:31:00* Test Item Value Reference Range Comments TROPONIN-I (test code=TROPI) <0.015 ng/mL 0-0.045 BASIC METABOLIC [id number] 07:17:00* Test Item Value Reference Range Comments SODIUM (test code=NA) 142 mmol/L 136-145 POTASSIUM (test code=K) 3.2 mmol/L 3.5-5.1 CHLORIDE (test code=CL) 110.0 mmol/L 98-107 CARBON DIOXIDE (test code=CO2) mmol/L 21-32 ANION GAP (test code=GAP) 10-20 GLUCOSE (test code=GLU) mg/dL 74-106 BLOOD UREA NITROGEN (test code=BUN) mg/dL 7-18 GLOMERULAR FILTRATION RATE (test code=GFR) mL/min >=60 CREATININE (test code=CREAT) mg/dL 0.7-1.3 BUN/CREATININE RATIO (test code=BUN/CREA) 10-20 CALCIUM (test code=CA) mg/dL 8.5-10.1 [id number] 07:17:00* Test Item Value Reference Range Comments MAGNESIUM (test code=MAG) mg/dL 1.8-2.4 [id number] 07:17:00* Test Item Value Reference Range Comments TROPONIN-I (test code=TROPI) ng/mL 0-0.045 TROPONIN I [id number] 07:11:00* Test Item Value Reference Range Comments TROPONIN I RAPID (test code=TROPIRAP) 0.02 ng/mL <0.08 Please Note New Reference Range 0.00-0.079 ng/mL - Negative>or=0.08 ng/mL - Positive The use of serial sampling and testing protocol is arecommended practice.An elevated troponin level alone is often not sufficient fordiagnosis of myocardial infarction. Troponin results obtained by different assays may vary.Evaluation of the extent of myocardial damage based onincrease of troponin would be valid only if similarmethodology is used. CBC W/O [id number] 07:02:00* Test Item Value Reference Range Comments WHITE BLOOD CELL (test code=WBC) 4.5 K/mm3 4.5-12.5 RED BLOOD CELL (test code=RBC) 4.49 mill/mm3 4.0-5.8 HEMOGLOBIN (test code=HGB) 10.7 gram/dL 13.0-17.5 HEMATOCRIT (test code=HCT) 35.0 % 42.0-52.0 MEAN CELL VOLUME (test code=MCV) 78.0 fL 80-98 MEAN CELL HGB (test code=MCH) 23.8 picogram 27.0-33.0 MEAN CELL HGB CONCETRATION (test code=MCHC) 30.6 gram/dL 33.0-36.0 RED CELL DISTRIBUTION WIDTH (test code=RDW) 17.8 % 11.6-16.2 PLATELET COUNT (test code=PLT) 194 K/mm3 150-450 MEAN PLATELET VOLUME (test code=MPV) 11.3 fL 6.7-11.0 - XR CHEST 1 [id number] 07:02:00 FAX: Kobe Atkins MD [phone] [place]: B St: REG Name: REJI OLSON [facility] : [birth year] Age/S: 63/M [address] [facility] Unit #: [id number] Loc: [place] [address] Phys: Kobe Atkins MD Acct: [id number] Dis Date: Status: REG ER PHONE #: [phone] Exam Date: 09/13/2018 0651 FAX #: [phone] Reason: CHEST PAIN EXAMS: CPT CODE: [id number] XR CHEST 1 V 65604 EXAM: CHEST ONE VIEW INDICATION: CHEST PAIN LOCATION: B2 COMPARISON: Jun TECHNIQUE: AP view of the chest FINDINGS : The heart size is enlarged. There is evidence of prior thoracic surgery. There is a cardiac pacing device in the left chest with no appar ent discontinuity of the lead. There are mild congestive changes bilatera lly. No pneumothorax or pleural effusion is identified. The osseous stru ctures are normal. IMPRESSION: Cardiomegaly with mild co ngestive changes bilaterally. Electronically Sign ed by Priscilla Reyes M.D. on 09/13/2018 at 0702 Reported and signed by: Priscilla Reyes M.D. CC: Kobe Atkins MD Tech nologist: Selam Soliz(R) Trnscrd Date/Ti me/By: 09/13/2018 (701) : By: [email or web address] Orig Print D/T: S: 09/13/2018 (704) PAGE 1 Signed Report - PULM VENT PERF [id number] 14:17:00 FAX: Jt Zhang MD [place]: St: [facility] FAX: Halle Lucas MD [phone] Name: REJI BARRETT [facility] : 1955 Age/S: 63/M [address] [facility] Unit #: [id number] Loc: V.[address] [place] [address] Phys: Halle Lucas MD Acct: [id number] Dis Date: Status: ADM IN PHONE #: [phone] Exam Date: 06/29/2018 1410 FAX #: [phone] Reason: pleuritic chest pain w/ shortness of breath EXAMS: CPT CODE: [id number] PULM VENT PERF IMAG 10135 REASON FOR EXAM: pleuritic chest pain w/ shortness of breath Exam Order Date: 06/29/2018 10:56 AM Procedure: - PULM VENT PERF IMAG FINDINGS: The patient was injected with 5.5 mCi of technetium 99m MAA. Unremarkable radiotracer uptake in the lungs in the perfusion phase. The patient was then inhaled 11.8 mCi of xenon-133. Un remarkable inhalation uptake seen. IMPRESSION: Low probabi lity of pulmonary embolus Electronically Signed by Maykel Daily on 0 06/29/2018 at 1417 Reported and signed by: Memo Daily M.D. CC: Jt Cody MD; Halle Lucas MD Technologist: SAPNA PATEL Trnscrd Date/Time/By: 06/29/2018 (4926) : By: Arlet Orig Print D/T: S: 06/29/2018 (5006) PAGE 1 Signed R eport [id number] 07:50:00* Test Item Value Reference Range Comments GLUBED (test code=GLUBED) 154 mg/dL 74-106 Performed by certified veterinary x ray operator at [facility] PROTHROMBIN [id number] 05:52:00* Test Item Value Reference Range Comments PROTHROMBIN TIME PATIENT (test code=PTP) 14.1 seconds 9.0-14.0 INTERNATIONAL NORMAL RATIO (test code=INR) 1.2 0.8-1.2 The therapeutic range for oral anticoagulant therapy formost indications is an international normalized ratio (INR)of between 2.0 and 3.0. The recommended therapeutic INRrange for various clinical situations is listed below: Clinical Situation INR range Pulmonary e mbolism treatment (2.0-3.0)Venous thrombosis treatmentVenous thrombosis prophylaxis (high risk surgery)Prevention of systemic embolism from: Acute myocardial infarction Valvular heart disease Atrial fibrillation Mechanical prosthetic heart valves (2.5-3.5) IS PATIENT ON ANTICOAGULANTS? YLIST ANTICOAGULANTS PLAVIX ASPIRIN HE PARINBASIC METABOLIC [id number] 05:45:00* Test Item Value Reference Range Comments SODIUM (test code=NA) 139 mmol/L 136-145 POTASSIUM (test code=K) 3.8 mmol/L 3.5-5.1 CHLORIDE (test code=CL) 105.0 mmol/L 98-107 CARBON DIOXIDE (test code=CO2) 31.0 mmol/L 21-32 ANION GAP (test code=GAP) 6.8 10-20 GLUCOSE (test code=GLU) 167 mg/dL 74-106 BLOOD UREA NITROGEN (test code=BUN) 17 mg/dL 7-18 GLOMERULAR FILTRATION RATE (test code=GFR) 41 mL/min >=60 Estimated GFR by using Modified MDRD formula.Chronic kidney disease is defined as either kidney damageor GFR <60 mL/min/1.73 m2 for >3 months. CREATININE (test code=CREAT) 1.70 mg/dL 0.7-1.3 BUN/CREATININE RATIO (test code=BUN/CREA) 10.0 10-20 CALCIUM (test code=CA) 8.9 mg/dL 8.5-10.1 BASIC METABOLIC [id number] 05:32:00* Test Item Value Reference Range Comments SODIUM (test code=NA) 139 mmol/L 136-145 POTASSIUM (test code=K) 3.8 mmol/L 3.5-5.1 CHLORIDE (test code=CL) 105.0 mmol/L 98-107 CARBON DIOXIDE (test code=CO2) mmol/L 21-32 ANION GAP (test code=GAP) 10-20 GLUCOSE (test code=GLU) mg/dL 74-106 BLOOD UREA NITROGEN (test code=BUN) mg/dL 7-18 GLOMERULAR FILTRATION RATE (test code=GFR) mL/min >=60 CREATININE (test code=CREAT) mg/dL 0.7-1.3 BUN/CREATININE RATIO (test code=BUN/CREA) 10-20 CALCIUM (test code=CA) mg/dL 8.5-10.1 CBC W/AUTO [id number] 05:29:00* Test Item Value Reference Range Comments WHITE BLOOD CELL (test code=WBC) 4.5 K/mm3 4.5-12.5 RED BLOOD CELL (test code=RBC) 4.39 mill/mm3 4.0-5.8 HEMOGLOBIN (test code=HGB) 10.4 gram/dL 13.0-17.5 HEMATOCRIT (test code=HCT) 34.5 % 42.0-52.0 MEAN CELL VOLUME (test code=MCV) 78.6 fL 80-98 MEAN CELL HGB (test code=MCH) 23.7 picogram 27.0-33.0 MEAN CELL HGB CONCETRATION (test code=MCHC) 30.1 gram/dL 33.0-36.0 RED CELL DISTRIBUTION WIDTH (test code=RDW) 16.6 % 11.6-16.2 RED CELL DISTRIBUTION WIDTH SD (test code=RDW-SD) 47.5 fL 37.0-51.0 PLATELET COUNT (test code=PLT) 207 K/mm3 150-450 MEAN PLATELET VOLUME (test code=MPV) 11.2 fL 6.7-11.0 NEUTROPHIL % (test code=NT%) 69.5 % 39.0-69.0 IMMATURE GRANULOCYTE % (test code=IG%) 0.9 % 0.0-5.0 LYMPHOCYTE % (test code=LY%) 15.9 % 25.0-55.0 MONOCYTE % (test code=MO%) 7.6 % 0.0-10.0 EOSINOPHIL % (test code=EO%) 5.4 % 0.0-5.0 BASOPHIL % (test code=BA%) 0.7 % 0.0-1.0 NUCLEATED RBC % (test code=NRBC%) 0.0 % 0-0 NEUTROPHIL # (test code=NT#) 3.10 K/mm3 1.8-7.7 IMMATURE GRANULOCYTE # (test code=IG#) 0.04 x10 3/uL 0-0.03 LYMPHOCYTE # (test code=LY#) 0.71 K/mm3 1.0-5.0 MONOCYTE # (test code=MO#) 0.34 K/mm3 0-0.8 EOSINOPHIL # (test code=EO#) 0.24 K/mm3 0.0-0.5 BASOPHIL # (test code=BA#) 0.03 K/mm3 0.0-0.2 NUCLEATED RBC # (test code=NRBC#) 0.00 K/mm3 0.0-0.1 [id number] 00:43:00* Test Item Value Reference Range Comments GLUBED (test code=GLUBED) 152 mg/dL 74-106 Performed by certified veterinary x ray operator at [facility] [id number] 10:27:00* Test Item Value Reference Range Comments TROPONIN-I (test code=TROPI) <0.015 ng/mL 0-0.045 COMMENTS TO MANAGER CORPORATE RESPONSIBILITY: COLLECT 3 HOURS AFTER PREVIOUS [id number] 09:02:00* Test Item Value Reference Range Comments TROPONIN-I (test code=TROPI) <0.015 ng/mL 0-0.045 COMMENTS TO MANAGER CORPORATE RESPONSIBILITY: COLLECT 3 HOURS AFTER PREVIOUS [id number] 08:53:00* Test Item Value Reference Range Comments GLUBED (test code=GLUBED) 140 mg/dL 74-106 Performed by certified veterinary x ray operator at [facility] B-TYPE NATRIURETIC [id number] 23:31:00* Test Item Value Reference Range Comments B-TYPE NATRIURETIC PEPTIDE (test code=BNP) 273.47 pgram/mL 0-100 PROTHROMBIN [id number] 23:20:00* Test Item Value Reference Range Comments PROTHROMBIN TIME PATIENT (test code=PTP) 24.9 seconds 9.0-14.0 INTERNATIONAL NORMAL RATIO (test code=INR) 2.1 0.8-1.2 The therapeutic range for oral anticoagulant therapy formost indications is an international normalized ratio (INR)of between 2.0 and 3.0. The recommended therapeutic INRrange for various clinical situations is listed below: Clinical Situation INR range Pulmonary e mbolism treatment (2.0-3.0)Venous thrombosis treatmentVenous thrombosis prophylaxis (high risk surgery)Prevention of systemic embolism from: Acute myocardial infarction Valvular heart disease Atrial fibrillation Mechanical prosthetic heart valves (2.5-3.5) IS PATIENT ON ANTICOAGULANTS? NTHROMBOPLASTIN TIME [id number] 23:20:00* Test Item Value Reference Range Comments THROMBOPLASTIN TIME PARTIAL (test code=PTT) 53.5 seconds 25.0-36.5 IS PATIENT ON ANTICOAGULANTS? [id number] 22:46:00* Test Item Value Reference Range Comments MAGNESIUM (test code=MAG) 1.6 mg/dL 1.8-2.4 THYROID STIMULATING [id number] 22:46:00* Test Item Value Reference Range Comments THYROID STIMULATING HORMONE (test code=TSH) 0.687 uIU/mL 0.36-3.74 TSH REFERENCE RANGES: EUTHYROID: 0.35 - 4.3 mIU/mL HYPO : > 5.5 mIU/mL HYPER : < 0.35 mIU/mL BASIC METABOLIC [id number] 22:39:00* Test Item Value Reference Range Comments SODIUM (test code=NA) 138 mmol/L 136-145 POTASSIUM (test code=K) 3.7 mmol/L 3.5-5.1 CHLORIDE (test code=CL) 103.0 mmol/L 98-107 CARBON DIOXIDE (test code=CO2) 26.0 mmol/L 21-32 ANION GAP (test code=GAP) 12.7 10-20 GLUCOSE (test code=GLU) 168 mg/dL 74-106 BLOOD UREA NITROGEN (test code=BUN) 20 mg/dL 7-18 GLOMERULAR FILTRATION RATE (test code=GFR) 38 mL/min >=60 Estimated GFR by using Modified MDRD formula.Chronic kidney disease is defined as either kidney damageor GFR <60 mL/min/1.73 m2 for >3 months. CREATININE (test code=CREAT) 1.80 mg/dL 0.7-1.3 BUN/CREATININE RATIO (test code=BUN/CREA) 11.1 10-20 CALCIUM (test code=CA) 8.6 mg/dL 8.5-10.1 [id number] 22:39:00* Test Item Value Reference Range Comments TROPONIN-I (test code=TROPI) <0.015 ng/mL 0-0.045 BASIC METABOLIC [id number] 22:30:00* Test Item Value Reference Range Comments SODIUM (test code=NA) 138 mmol/L 136-145 POTASSIUM (test code=K) 3.7 mmol/L 3.5-5.1 CHLORIDE (test code=CL) 103.0 mmol/L 98-107 CARBON DIOXIDE (test code=CO2) mmol/L 21-32 ANION GAP (test code=GAP) 10-20 GLUCOSE (test code=GLU) mg/dL 74-106 BLOOD UREA NITROGEN (test code=BUN) mg/dL 7-18 GLOMERULAR FILTRATION RATE (test code=GFR) mL/min >=60 CREATININE (test code=CREAT) mg/dL 0.7-1.3 BUN/CREATININE RATIO (test code=BUN/CREA) 10-20 CALCIUM (test code=CA) mg/dL 8.5-10.1 [id number] 22:30:00* Test Item Value Reference Range Comments TROPONIN-I (test code=TROPI) ng/mL 0-0.045 [id number] 22:30:00* Test Item Value Reference Range Comments MAGNESIUM (test code=MAG) 1.6 mg/dL 1.8-2.4 THYROID STIMULATING [id number] 22:30:00* Test Item Value Reference Range Comments THYROID STIMULATING HORMONE (test code=TSH) uIU/mL 0.36-3.74 CBC W/O [id number] 22:25:00* Test Item Value Reference Range Comments WHITE BLOOD CELL (test code=WBC) 4.8 K/mm3 4.5-12.5 RED BLOOD CELL (test code=RBC) 4.23 mill/mm3 4.0-5.8 HEMOGLOBIN (test code=HGB) 10.0 gram/dL 13.0-17.5 HEMATOCRIT (test code=HCT) 33.7 % 42.0-52.0 MEAN CELL VOLUME (test code=MCV) 79.7 fL 80-98 MEAN CELL HGB (test code=MCH) 23.6 picogram 27.0-33.0 MEAN CELL HGB CONCETRATION (test code=MCHC) 29.7 gram/dL 33.0-36.0 RED CELL DISTRIBUTION WIDTH (test code=RDW) 16.7 % 11.6-16.2 PLATELET COUNT (test code=PLT) 176 K/mm3 150-450 MEAN PLATELET VOLUME (test code=MPV) 11.7 fL 6.7-11.0 - XR CHEST 1 [id number] 22:04:00 FAX: CHEMO SAN MD [place]: B St: PRE Name: REJI OLSON [facility] : [birth year] 54 Age/S: 63/M [address] [facility] Unit #: [id number] Loc: [place] [address] Phys: CHEMO SAN MD Acct: [id number] Dis Date: Status: PRE ER PHONE #: [phone] Exam Date: 06/27/20182202 FAX #: [phone] Reason: CHEST PAIN EXAMS: CPT CODE: [id number] XR CHEST 1 V 49713 REASON FOR EXAM: CHEST PAIN EXAM ORDER DATE: 06/27/2018 9:18 PM Ordering M.D.: CHEMO SAN MD PROCEDURE: - XR CHEST 1 V COMPARISON: 04/04/2018 FINDINGS: Portable AP frontal view of the chest obt ained at 10:01 PM shows diffuse airspace opacities. There is no evidence o f effusion. The heart size is minimally enlarged. Pulmonary vasculatures a re minimally congested. Stable appearance of the left subclavian ICD. IMPRESSION: Congestive heart failure with pulmonary edema at 2204 Reported and signed by: Memo Daily M.D. CC: Kristie SAN MD Technologist: Indigo Painter Trnscrd Date/Time/By: 06/27/2018 (2203) : By: CorinaVTL Orig Print D/T: S: 06/27/2018 () PAGE 1 Signed Report GLUBED 2018-04-20 07:49:00* Test Item Value Reference Range Comments GLUBED (test code=GLUBED) 152 mg/dL 74-106 Performed by certified veterinary x ray operator at [facility] [id number] 07:49:00* Test Item Value Reference Range Comments GLUBED (test code=GLUBED) 199 mg/dL 74-106 Performed by certified veterinary x ray operator at [facility] [id number] 07:48:00* Test Item Value Reference Range Comments GLUBED (test code=GLUBED) 165 mg/dL 74-106 Performed by certified veterinary x ray operator at [facility] [id number] 17:15:00* Test Item Value Reference Range Comments GLUBED (test code=GLUBED) 178 mg/dL 74-106 Performed by certified veterinary x ray operator at [facility] [id number] 14:59:00* Test Item Value Reference Range Comments TROPONIN-I (test code=TROPI) 0.129 ng/mL 0-0.045 Results PREVIOUSLY called [id number] 12:17:00* Test Item Value Reference Range Comments GLUBED (test code=GLUBED) 146 mg/dL 74-106 Performed by certified veterinary x ray operator at [facility] - XR CHEST 1 [id number] 08:07:00 FAX: Linnette Painter [phone] [place]: B St: ADM FAX: CHEMO SAN MD Name: REJI BARRETT [facility] : 1955 Age/S: 62/M [address] [facility] Unit #: [id number] Loc: V.[address] [place] [address] Phys: CHEMO SAN MD Acct: [id number] Dis Date: Status: ADM IN PHONE #: [phone] Exam Date: 04/04/2018 0735 FAX #: [phone] Reason: CHEST PAIN EXAMS: CPT CODE: [id number] XR CHEST 1 V 97385 CLINICAL HISTORY: CHEST PAIN TECHNIQUE: AP chest x-ray COMPARISON: Previous day. IMPRESSION: No significant interval change. Bibasilar interstitial opacities and subsegmental atelectasis. No pleural effusion. Cardiomegaly. ICD. Sternotomy wires. at 0807 Reported and signed by: Clau Sanchez D.O. CC: Linnette Monreal MD; CHEMO SAN MD Technologist: Willie STORY(R) Trnscrd Date/Time/By: 04/04/2018 (0807) : By: [email or web address] Orig Print D /T: S: 04/04/2018 (8510) PAGE 1 S igned Report CBC W/AUTO [id number] 05:58:00* Test Item Value Reference Range Comments WHITE BLOOD CELL (test code=WBC) 4.6 K/mm3 4.5-12.5 RED BLOOD CELL (test code=RBC) 4.19 mill/mm3 4.0-5.8 HEMOGLOBIN (test code=HGB) 10.3 gram/dL 13.0-17.5 HEMATOCRIT (test code=HCT) 35.0 % 42.0-52.0 MEAN CELL VOLUME (test code=MCV) 83.5 fL 80-98 MEAN CELL HGB (test code=MCH) 24.6 picogram 27.0-33.0 MEAN CELL HGB CONCETRATION (test code=MCHC) 29.4 gram/dL 33.0-36.0 RED CELL DISTRIBUTION WIDTH (test code=RDW) 15.5 % 11.6-16.2 RED CELL DISTRIBUTION WIDTH SD (test code=RDW-SD) 46.7 fL 37.0-51.0 PLATELET COUNT (test code=PLT) 190 K/mm3 150-450 MEAN PLATELET VOLUME (test code=MPV) 11.2 fL 6.7-11.0 NEUTROPHIL % (test code=NT%) 64.0 % 39.0-69.0 IMMATURE GRANULOCYTE % (test code=IG%) 1.3 % 0.0-5.0 LYMPHOCYTE % (test code=LY%) 18.2 % 25.0-55.0 MONOCYTE % (test code=MO%) 8.6 % 0.0-10.0 EOSINOPHIL % (test code=EO%) 7.0 % 0.0-5.0 BASOPHIL % (test code=BA%) 0.9 % 0.0-1.0 NUCLEATED RBC % (test code=NRBC%) 0.0 % 0-0 NEUTROPHIL # (test code=NT#) 2.92 K/mm3 1.8-7.7 IMMATURE GRANULOCYTE # (test code=IG#) 0.06 x10 3/uL 0-0.03 LYMPHOCYTE # (test code=LY#) 0.83 K/mm3 1.0-5.0 MONOCYTE # (test code=MO#) 0.39 K/mm3 0-0.8 EOSINOPHIL # (test code=EO#) 0.32 K/mm3 0.0-0.5 BASOPHIL # (test code=BA#) 0.04 K/mm3 0.0-0.2 NUCLEATED RBC # (test code=NRBC#) 0.00 K/mm3 0.0-0.1 MANUAL DIFF REQUIRED (test code=MDIFF) NO, ONLY SCAN NEEDED DIFFERENTIAL [id number] 05:58:00* Test Item Value Reference Range Comments STAIN ACCEPTABILITY (test code=STN ACCEPTABLE) STAIN ACCEPTABLE POIKILOCYTOSIS (test code=POIK) 1+ ANISOCYTOSIS (test code=ANISO) 2+ MICROCYTOSIS (test code=MICR) 2+ PLATELET ESTIMATE (test code=PLTEST) ADEQUATE PLATELET MORPHOLOGY (test code=PLTMORPH) SIZE VARIABLE BASIC METABOLIC [id number] 05:56:00* Test Item Value Reference Range Comments SODIUM (test code=NA) 141 mmol/L 136-145 POTASSIUM (test code=K) 4.1 mmol/L 3.5-5.1 CHLORIDE (test code=CL) 106.0 mmol/L 98-107 CARBON DIOXIDE (test code=CO2) 26.0 mmol/L 21-32 ANION GAP (test code=GAP) 13.1 10-20 GLUCOSE (test code=GLU) 142 mg/dL 74-106 BLOOD UREA NITROGEN (test code=BUN) 15 mg/dL 7-18 GLOMERULAR FILTRATION RATE (test code=GFR) 56 mL/min >=60 Estimated GFR by using Modified MDRD formula.Chronic kidney disease is defined as either kidney damageor GFR <60 mL/min/1.73 m2 for >3 months. CREATININE (test code=CREAT) 1.30 mg/dL 0.7-1.3 BUN/CREATININE RATIO (test code=BUN/CREA) 11.7 10-20 CALCIUM (test code=CA) 8.6 mg/dL 8.5-10.1 BASIC METABOLIC [id number] 05:44:00* Test Item Value Reference Range Comments SODIUM (test code=NA) 141 mmol/L 136-145 POTASSIUM (test code=K) 4.1 mmol/L 3.5-5.1 CHLORIDE (test code=CL) 106.0 mmol/L 98-107 CARBON DIOXIDE (test code=CO2) mmol/L 21-32 ANION GAP (test code=GAP) 10-20 GLUCOSE (test code=GLU) mg/dL 74-106 BLOOD UREA NITROGEN (test code=BUN) mg/dL 7-18 GLOMERULAR FILTRATION RATE (test code=GFR) mL/min >=60 CREATININE (test code=CREAT) mg/dL 0.7-1.3 BUN/CREATININE RATIO (test code=BUN/CREA) 10-20 CALCIUM (test code=CA) mg/dL 8.5-10.1 CBC W/AUTO [id number] 05:31:00* Test Item Value Reference Range Comments WHITE BLOOD CELL (test code=WBC) 4.6 K/mm3 4.5-12.5 RED BLOOD CELL (test code=RBC) 4.19 mill/mm3 4.0-5.8 HEMOGLOBIN (test code=HGB) 10.3 gram/dL 13.0-17.5 HEMATOCRIT (test code=HCT) 35.0 % 42.0-52.0 MEAN CELL VOLUME (test code=MCV) 83.5 fL 80-98 MEAN CELL HGB (test code=MCH) 24.6 picogram 27.0-33.0 MEAN CELL HGB CONCETRATION (test code=MCHC) 29.4 gram/dL 33.0-36.0 RED CELL DISTRIBUTION WIDTH (test code=RDW) 15.5 % 11.6-16.2 RED CELL DISTRIBUTION WIDTH SD (test code=RDW-SD) 46.7 fL 37.0-51.0 PLATELET COUNT (test code=PLT) 190 K/mm3 150-450 MEAN PLATELET VOLUME (test code=MPV) 11.2 fL 6.7-11.0 NEUTROPHIL % (test code=NT%) 64.0 % 39.0-69.0 IMMATURE GRANULOCYTE % (test code=IG%) 1.3 % 0.0-5.0 LYMPHOCYTE % (test code=LY%) 18.2 % 25.0-55.0 MONOCYTE % (test code=MO%) 8.6 % 0.0-10.0 EOSINOPHIL % (test code=EO%) 7.0 % 0.0-5.0 BASOPHIL % (test code=BA%) 0.9 % 0.0-1.0 NUCLEATED RBC % (test code=NRBC%) 0.0 % 0-0 NEUTROPHIL # (test code=NT#) 2.92 K/mm3 1.8-7.7 IMMATURE GRANULOCYTE # (test code=IG#) 0.06 x10 3/uL 0-0.03 LYMPHOCYTE # (test code=LY#) 0.83 K/mm3 1.0-5.0 MONOCYTE # (test code=MO#) 0.39 K/mm3 0-0.8 EOSINOPHIL # (test code=EO#) 0.32 K/mm3 0.0-0.5 BASOPHIL # (test code=BA#) 0.04 K/mm3 0.0-0.2 NUCLEATED RBC # (test code=NRBC#) 0.00 K/mm3 0.0-0.1 MANUAL DIFF REQUIRED (test code=MDIFF) NO, ONLY SCAN NEEDED DIFFERENTIAL [id number] 05:31:00* Test Item Value Reference Range Comments STAIN ACCEPTABILITY (test code=STN ACCEPTABLE) CABOT RINGS (test code=CAB) MORPHOLOGY COMMENT (test code=MOC) PLATELET ESTIMATE (test code=PLTEST) PLATELET MORPHOLOGY (test code=PLTMORPH) CBC W/AUTO [id number] 05:31:00* Test Item Value Reference Range Comments WHITE BLOOD CELL (test code=WBC) 4.6 K/mm3 4.5-12.5 RED BLOOD CELL (test code=RBC) 4.19 mill/mm3 4.0-5.8 HEMOGLOBIN (test code=HGB) 10.3 gram/dL 13.0-17.5 HEMATOCRIT (test code=HCT) 35.0 % 42.0-52.0 MEAN CELL VOLUME (test code=MCV) 83.5 fL 80-98 MEAN CELL HGB (test code=MCH) 24.6 picogram 27.0-33.0 MEAN CELL HGB CONCETRATION (test code=MCHC) 29.4 gram/dL 33.0-36.0 RED CELL DISTRIBUTION WIDTH (test code=RDW) 15.5 % 11.6-16.2 RED CELL DISTRIBUTION WIDTH SD (test code=RDW-SD) 46.7 fL 37.0-51.0 PLATELET COUNT (test code=PLT) 190 K/mm3 150-450 MEAN PLATELET VOLUME (test code=MPV) 11.2 fL 6.7-11.0 NEUTROPHIL % (test code=NT%) 64.0 % 39.0-69.0 IMMATURE GRANULOCYTE % (test code=IG%) 1.3 % 0.0-5.0 LYMPHOCYTE % (test code=LY%) 18.2 % 25.0-55.0 MONOCYTE % (test code=MO%) 8.6 % 0.0-10.0 EOSINOPHIL % (test code=EO%) 7.0 % 0.0-5.0 BASOPHIL % (test code=BA%) 0.9 % 0.0-1.0 NUCLEATED RBC % (test code=NRBC%) 0.0 % 0-0 NEUTROPHIL # (test code=NT#) 2.92 K/mm3 1.8-7.7 IMMATURE GRANULOCYTE # (test code=IG#) 0.06 x10 3/uL 0-0.03 LYMPHOCYTE # (test code=LY#) 0.83 K/mm3 1.0-5.0 MONOCYTE # (test code=MO#) 0.39 K/mm3 0-0.8 EOSINOPHIL # (test code=EO#) 0.32 K/mm3 0.0-0.5 BASOPHIL # (test code=BA#) 0.04 K/mm3 0.0-0.2 NUCLEATED RBC # (test code=NRBC#) 0.00 K/mm3 0.0-0.1 MANUAL DIFF REQUIRED (test code=MDIFF) NO, ONLY SCAN NEEDED DIFFERENTIAL [id number] 05:31:00* Test Item Value Reference Range Comments STAIN ACCEPTABILITY (test code=STN ACCEPTABLE) MORPHOLOGY COMMENT (test code=MOC) PLATELET ESTIMATE (test code=PLTEST) PLATELET MORPHOLOGY (test code=PLTMORPH) CBC W/AUTO [id number] 05:31:00* Test Item Value Reference Range Comments WHITE BLOOD CELL (test code=WBC) 4.6 K/mm3 4.5-12.5 RED BLOOD CELL (test code=RBC) 4.19 mill/mm3 4.0-5.8 HEMOGLOBIN (test code=HGB) 10.3 gram/dL 13.0-17.5 HEMATOCRIT (test code=HCT) 35.0 % 42.0-52.0 MEAN CELL VOLUME (test code=MCV) 83.5 fL 80-98 MEAN CELL HGB (test code=MCH) 24.6 picogram 27.0-33.0 MEAN CELL HGB CONCETRATION (test code=MCHC) 29.4 gram/dL 33.0-36.0 RED CELL DISTRIBUTION WIDTH (test code=RDW) 15.5 % 11.6-16.2 RED CELL DISTRIBUTION WIDTH SD (test code=RDW-SD) 46.7 fL 37.0-51.0 PLATELET COUNT (test code=PLT) 190 K/mm3 150-450 MEAN PLATELET VOLUME (test code=MPV) 11.2 fL 6.7-11.0 NEUTROPHIL % (test code=NT%) 64.0 % 39.0-69.0 IMMATURE GRANULOCYTE % (test code=IG%) 1.3 % 0.0-5.0 LYMPHOCYTE % (test code=LY%) 18.2 % 25.0-55.0 MONOCYTE % (test code=MO%) 8.6 % 0.0-10.0 EOSINOPHIL % (test code=EO%) 7.0 % 0.0-5.0 BASOPHIL % (test code=BA%) 0.9 % 0.0-1.0 NUCLEATED RBC % (test code=NRBC%) 0.0 % 0-0 NEUTROPHIL # (test code=NT#) 2.92 K/mm3 1.8-7.7 IMMATURE GRANULOCYTE # (test code=IG#) 0.06 x10 3/uL 0-0.03 LYMPHOCYTE # (test code=LY#) 0.83 K/mm3 1.0-5.0 MONOCYTE # (test code=MO#) 0.39 K/mm3 0-0.8 EOSINOPHIL # (test code=EO#) 0.32 K/mm3 0.0-0.5 BASOPHIL # (test code=BA#) 0.04 K/mm3 0.0-0.2 NUCLEATED RBC # (test code=NRBC#) 0.00 K/mm3 0.0-0.1 MANUAL DIFF REQUIRED (test code=MDIFF) NO, ONLY SCAN NEEDED DIFFERENTIAL [id number] 05:31:00* Test Item Value Reference Range Comments STAIN ACCEPTABILITY (test code=STN ACCEPTABLE) MORPHOLOGY COMMENT (test code=MOC) PLATELET ESTIMATE (test code=PLTEST) PLATELET MORPHOLOGY (test code=PLTMORPH) CBC W/AUTO [id number] 05:31:00* Test Item Value Reference Range Comments WHITE BLOOD CELL (test code=WBC) 4.6 K/mm3 4.5-12.5 RED BLOOD CELL (test code=RBC) 4.19 mill/mm3 4.0-5.8 HEMOGLOBIN (test code=HGB) 10.3 gram/dL 13.0-17.5 HEMATOCRIT (test code=HCT) 35.0 % 42.0-52.0 MEAN CELL VOLUME (test code=MCV) 83.5 fL 80-98 MEAN CELL HGB (test code=MCH) 24.6 picogram 27.0-33.0 MEAN CELL HGB CONCETRATION (test code=MCHC) 29.4 gram/dL 33.0-36.0 RED CELL DISTRIBUTION WIDTH (test code=RDW) 15.5 % 11.6-16.2 RED CELL DISTRIBUTION WIDTH SD (test code=RDW-SD) 46.7 fL 37.0-51.0 PLATELET COUNT (test code=PLT) 190 K/mm3 150-450 MEAN PLATELET VOLUME (test code=MPV) 11.2 fL 6.7-11.0 NEUTROPHIL % (test code=NT%) 64.0 % 39.0-69.0 IMMATURE GRANULOCYTE % (test code=IG%) 1.3 % 0.0-5.0 LYMPHOCYTE % (test code=LY%) 18.2 % 25.0-55.0 MONOCYTE % (test code=MO%) 8.6 % 0.0-10.0 EOSINOPHIL % (test code=EO%) 7.0 % 0.0-5.0 BASOPHIL % (test code=BA%) 0.9 % 0.0-1.0 NUCLEATED RBC % (test code=NRBC%) 0.0 % 0-0 NEUTROPHIL # (test code=NT#) 2.92 K/mm3 1.8-7.7 IMMATURE GRANULOCYTE # (test code=IG#) 0.06 x10 3/uL 0-0.03 LYMPHOCYTE # (test code=LY#) 0.83 K/mm3 1.0-5.0 MONOCYTE # (test code=MO#) 0.39 K/mm3 0-0.8 EOSINOPHIL # (test code=EO#) 0.32 K/mm3 0.0-0.5 BASOPHIL # (test code=BA#) 0.04 K/mm3 0.0-0.2 NUCLEATED RBC # (test code=NRBC#) 0.00 K/mm3 0.0-0.1 MANUAL DIFF REQUIRED (test code=MDIFF) NO, ONLY SCAN NEEDED DIFFERENTIAL [id number] 05:31:00* Test Item Value Reference Range Comments STAIN ACCEPTABILITY (test code=STN ACCEPTABLE) CABOT RINGS (test code=CAB) MORPHOLOGY COMMENT (test code=MOC) PLATELET ESTIMATE (test code=PLTEST) PLATELET MORPHOLOGY (test code=PLTMORPH) [id number] 16:30:00* Test Item Value Reference Range Comments GLUBED (test code=GLUBED) 168 mg/dL 74-106 Performed by certified veterinary x ray operator at [facility] [id number] 14:34:00* Test Item Value Reference Range Comments TROPONIN-I (test code=TROPI) 0.218 ng/mL 0-0.045 Results called to [id number] by JENA 04/03/18 1432Critical results verified and read back by Nurse? Y COMMENTS TO MANAGER CORPORATE RESPONSIBILITY: COLLECT 3 HOURS AFTER PREVIOUS [id number] 11:33:00* Test Item Value Reference Range Comments TROPONIN-I (test code=TROPI) 0.034 ng/mL 0-0.045 COMMENTS TO MANAGER CORPORATE RESPONSIBILITY: COLLECT 3 HOURS AFTER PREVIOUS [id number] 11:31:00* Test Item Value Reference Range Comments GLUBED (test code=GLUBED) 150 mg/dL 74-106 Performed by certified veterinary x ray operator at [facility] B-TYPE NATRIURETIC [id number] 10:10:00* Test Item Value Reference Range Comments B-TYPE NATRIURETIC PEPTIDE (test code=BNP) 315.96 pgram/mL 0-100 - XR CHEST 1 [id number] 09:19:00 FAX: CHEMO SAN MD [place]: B St: REG Name: REJI OLSON [facility] : 04/17/18 54 Age/S: 62/M [address] [facility] Unit #: [id number] Loc: [place] [address] Phys: CHEMO SAN MD Acct: [id number] Dis Date: Status: REG ER PHONE #: [phone] Exam Date: 04/03/2018840 FAX #: [phone] Reason: CHEST PAIN EXAMS: CPT CODE: [id number] XR CHEST 1 V [id number] EXAM: Chest x-ray, one view; INFORMATION: Chest pain; IMPRESSION: 1. Mild b asilar atelectatic changes in the right lung. 2. Otherwise, lungs are c lear. 3. The heart is enlarged. 4. No major change compared wi th a study from August 17, 2018. Left subclavian pacemaker in place; statu s post median sternotomy. at 0919 Reported and signed by: Yobany Baldwin M.D. CC: CHEMO SAN MD Technol ogist: DOREEN EUBANKS RT (R); ZAIDA CINTRON RT(R) Trnscrd Date/Time/ By: 04/03/2018 (09) : By: CorinaGRW Orig Print D/T: S: 04/03/2018 (0 981) PAGE 1 Signed Report BASIC METABOLIC [id number] 09:18:00* Test Item Value Reference Range Comments SODIUM (test code=NA) 140 mmol/L 136-145 POTASSIUM (test code=K) 3.8 mmol/L 3.5-5.1 CHLORIDE (test code=CL) 106.0 mmol/L 98-107 CARBON DIOXIDE (test code=CO2) 24.0 mmol/L 21-32 ANION GAP (test code=GAP) 13.8 10-20 GLUCOSE (test code=GLU) 196 mg/dL 74-106 BLOOD UREA NITROGEN (test code=BUN) 15 mg/dL 7-18 GLOMERULAR FILTRATION RATE (test code=GFR) 56 mL/min >=60 Estimated GFR by using Modified MDRD formula.Chronic kidney disease is defined as either kidney damageor GFR <60 mL/min/1.73 m2 for >3 months. CREATININE (test code=CREAT) 1.30 mg/dL 0.7-1.3 BUN/CREATININE RATIO (test code=BUN/CREA) 11.4 10-20 CALCIUM (test code=CA) 9.0 mg/dL 8.5-10.1 [id number] 09:18:00* Test Item Value Reference Range Comments TROPONIN-I (test code=TROPI) <0.015 ng/mL 0-0.045 BASIC METABOLIC [id number] 09:07:00* Test Item Value Reference Range Comments SODIUM (test code=NA) 140 mmol/L 136-145 POTASSIUM (test code=K) 3.8 mmol/L 3.5-5.1 CHLORIDE (test code=CL) 106.0 mmol/L 98-107 CARBON DIOXIDE (test code=CO2) mmol/L 21-32 ANION GAP (test code=GAP) 10-20 GLUCOSE (test code=GLU) mg/dL 74-106 BLOOD UREA NITROGEN (test code=BUN) mg/dL 7-18 GLOMERULAR FILTRATION RATE (test code=GFR) mL/min >=60 CREATININE (test code=CREAT) mg/dL 0.7-1.3 BUN/CREATININE RATIO (test code=BUN/CREA) 10-20 CALCIUM (test code=CA) mg/dL 8.5-10.1 [id number] 09:07:00* Test Item Value Reference Range Comments TROPONIN-I (test code=TROPI) ng/mL 0-0.045 [id number] 09:07:00* Test Item Value Reference Range Comments MAGNESIUM (test code=MAG) 2.1 mg/dL 1.8-2.4 PROTHROMBIN [id number] 09:03:00* Test Item Value Reference Range Comments PROTHROMBIN TIME PATIENT (test code=PTP) 12.9 seconds 9.0-14.0 INTERNATIONAL NORMAL RATIO (test code=INR) 1.1 0.8-1.2 The therapeutic range for oral anticoagulant therapy formost indications is an international normalized ratio (INR)of between 2.0 and 3.0. The recommended therapeutic INRrange for various clinical situations is listed below: Clinical Situation INR range Pulmonary e mbolism treatment (2.0-3.0)Venous thrombosis treatmentVenous thrombosis prophylaxis (high risk surgery)Prevention of systemic embolism from: Acute myocardial infarction Valvular heart disease Atrial fibrillation Mechanical prosthetic heart valves (2.5-3.5) IS PATIENT ON ANTICOAGULANTS? NTHROMBOPLASTIN TIME [id number] 09:03:00* Test Item Value Reference Range Comments THROMBOPLASTIN TIME PARTIAL (test code=PTT) 40.1 seconds 25.0-36.5 IS PATIENT ON ANTICOAGULANTS? NCBC W/O [id number] 08:55:00* Test Item Value Reference Range Comments WHITE BLOOD CELL (test code=WBC) 5.3 K/mm3 4.5-12.5 RED BLOOD CELL (test code=RBC) 4.90 mill/mm3 4.0-5.8 HEMOGLOBIN (test code=HGB) 12.0 gram/dL 13.0-17.5 HEMATOCRIT (test code=HCT) 40.7 % 42.0-52.0 MEAN CELL VOLUME (test code=MCV) 83.1 fL 80-98 MEAN CELL HGB (test code=MCH) 24.5 picogram 27.0-33.0 MEAN CELL HGB CONCETRATION (test code=MCHC) 29.5 gram/dL 33.0-36.0 RED CELL DISTRIBUTION WIDTH (test code=RDW) 15.4 % 11.6-16.2 PLATELET COUNT (test code=PLT) 196 K/mm3 150-450 MEAN PLATELET VOLUME (test code=MPV) 10.8 fL 6.7-11.0
--- NOTE | 2019-03-25 17:00 | NUR ---
Pt noted to have a 6 beat run of V-tach, Dr. Mg notified, pt placed on D-fib pads.
--- NOTE | 2019-03-25 17:01 | NUR ---
Pt denies any CP at the present time.
--- NOTE | 2019-03-25 17:30 | NUR ---
Dr. Sol Vanegas notified of pt run of V-tach, informed him that there was not a merchandiser on the case, verbal order with read back for consult for Dr. Tavon Biggs.
--- NOTE | 2019-03-25 17:59 | NUR ---
Dr. Tavon Biggs contacted at this time. Dr. Sol Biggs taking call informed him of pt run of V-tach and pt currently A-fib asked if he would like to order any medication for rate control,
[2019-03-25] MEDS ORDERED: NITROGLYCERIN 2% OINT 1 GM PKT TOP SCH (18:00)
--- NOTE | 2019-03-25 18:00 | NUR ---
Pt noted to be sinus rhythm on the monitor, Dr. Sol Biggs notified, repeat EKG ordered and sent to Dr. Biggs.
--- NOTE | 2019-03-25 18:45 | NUR ---
Melida dubose in ED - 03/25/19 at 2044 by [email or web address] Pt noted to be sinus rhythm on the monitor, Dr. Sol Biggs notified, repeat EKG ordered and sent to Dr. Biggs.
[2019-03-25 18:53] LABS: CREATINE KINASE MB 1.3 ng/mL (0-5.0)
[2019-03-25] MEDS ORDERED: METOPROLOL TARTRATE 50 MG TAB PO SCH (19:00)
[2019-03-25 23:00] VITALS: BP 158/88
[2019-03-25] MEDS: NITROGLYCERIN 0.4 MG SUBL SL PRN ×2 (23:00→23:05)
[2019-03-25 23:26] VITALS: BP 107/74
[2019-03-26] VITALS (22 sets, daily range): BP systolic 90–126; BP diastolic 47–109
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
[2019-03-26 02:43] LABS: CHOL/HDL RATIO 4.4 (3.9-4.7)
[2019-03-26] MEDS ORDERED: AMIODARONE HCL 200 MG TAB PO SCH (09:00)
[2019-03-26] MEDS ORDERED: ATORVASTATIN 10 MG TAB PO SCH (09:00)
[2019-03-26] MEDS ORDERED: CLOPIDOGREL BISULFATE 75 MG TAB PO SCH (09:00)
[2019-03-26 09:33] LABS: % IRON SATURATION 16 % (15-50); IRON 64 ug/dL (65-175); TOTAL IRON BINDING CAPACITY 400 ug/dL (261-478); TRANSFERRIN 286 mg/dL (174-364)
[2019-03-26] MEDS: ALLOPURINOL 100 MG TAB PO SCH (09:39)
[2019-03-26] MEDS: RIVAROXABAN 20 MG TABLET PO SCH (09:39)
[2019-03-26] MEDS: METOPROLOL SUCCINATE 50 MG TAB XL PO SCH (09:40)
[2019-03-26] MEDS: POTASSIUM CHLORIDE 10MEQ EA PO SCH (09:40)
[2019-03-26] MEDS: CLOPIDOGREL BISULFATE 75 MG TAB PO SCH (09:40)
[2019-03-26] MEDS: RANOLAZINE 500 MG TABSR PO SCH ×2 (09:40→17:42)
[2019-03-26] MEDS: PANTOPRAZOLE SOD 40 MG TABEC PO SCH (09:40)
[2019-03-26] MEDS: FUROSEMIDE 40 MG TAB PO SCH (09:40)
[2019-03-26] MEDS: AMIODARONE HCL 200 MG TAB PO SCH (09:41)
[2019-03-26] MEDS: GLIPIZIDE 5 MG TAB PO SCH ×2 (09:41→17:42)
--- NOTE | 2019-03-26 10:00 | Progress Note ---
DATE: 03/26/2019 SUBJECTIVE: A 63-year-old man with history of CAD, comes in with chest pain with elevated troponins. The patient had a run of ventricular tachycardia yesterday in the ER, came in and was put in the ICU. Troponin trending to be stable. At this time, the patient continues to having chest pain to the left side of the chest and also radiating to the left. The patient does ask for some pain medication. Currently stable heart rates in the 100s. OBJECTIVE: VITAL SIGNS: Otherwise, temperature is afebrile, pulse of 99-100, respirations of 17, blood pressure is 108/64, and pulse oximetry of 99% on room air. HEENT: Normocephalic and atraumatic. The patient is very hard of hearing. Oxygen supplementation ongoing. The patient's heart rate is about 100. ABDOMEN: Nontender, nondistended. LUNGS: Positive for crackles in lower bases. EXTREMITIES: Positive for edema and abdomen is pendulous. LABORATORY VALUES: From yesterday hemoglobin of 8.4 and hematocrit of 29.4. Chemistries; iron and TIBC are pending. CK, CK-MB, and troponins are pending, the 3rd set. The troponin was 0.77, reached up to 0.82. The patient's LDL is 70. ASSESSMENT: A 63-year-old gentleman with, 1. Coronary artery disease. 2. Aortic stenosis. 3. Atrial fibrillation with rapid ventricular response. 4. Acute on chronic congestive heart failure. 5. History of ventricular tachycardia. 6. History of reflux esophagitis. PLAN: Consult with Dr. Biggs has been done. Restart all his home medications including metoprolol. The patient will be kept in ICU. Further recommendation per clinical course. We will continue monitoring his troponin and we will diurese him adequately. Blood pressure will be monitored and we will restart his home medications including metoprolol. Further recommendations per clinical course. MD PEARL Calvillo/MIKEL /[id number]
[2019-03-26] MEDS: NITROGLYCERIN 0.4 MG SUBL SL PRN (17:41)
--- NOTE | 2019-03-26 17:43 | NUR ---
PT VS STABLE THROUGHOUT SHIFT. PT AMB TO BATHROOM WITHOUT DIFFICULTY. REMAINS ST 104-124 WITH BP WNL. PT VS AT THIS TIME SAME, PT AMB TO BATHROOM TO TAKE A SHOWER AND THEN CAME BACK OUT C/O CP. ADMIN 1 DOSE SL NITRO, PT ASKED "IS THAT ALL YOU HAVE TO GIVE ME, THOSE DONT WORK" PAGED .
--- NOTE | 2019-03-26 17:49 | NUR ---
PT REPORTS CP RESOLVED
--- NOTE | 2019-03-26 19:27 | Consultation ---
DATE OF CONSULTATION: 03/25/2019 Cardiac Consultation HISTORY OF PRESENT ILLNESS: This is very poorly historian gentleman. He is 63. He is known with chronic atrial fibrillation, coronary artery disease status post coronary artery bypass surgery, ICD placement for congestive heart failure, severe aortic stenosis, multiple admission to the hospital with advanced heart failure. The patient maintained on Xarelto and Plavix. The patient was in [facility] recently seen by another statistical assistant. He is followed in [facility] [place] for many years. He is aware of very severe advanced aortic stenosis and very severe heart failure. In fact, he had a cardiac catheterization 3 to 4 months ago in [facility] and he is waiting for them to decide what to do. His case is very difficult. The patient came to this institution because he was not feeling well. He is having shortness of breath and chest pain. Cardiac consultation is obtained. The patient's symptoms are class IV heart failure symptoms, easy fatigability, orthopnea, paroxysmal nocturnal dyspnea, etc. REVIEW OF SYSTEMS: GENERAL: No fever. No chills. HEENT: No vision. No hearing problem. PULMONARY AND CARDIAC: Class IV heart failure symptoms. GI: Bloating, indigestion, and constipation. : Increased frequency of urination. MUSCULOSKELETAL: Aches and pain. General weakness. PAST MEDICAL HISTORY: 1. Coronary artery disease, status post coronary artery bypass surgery in 2000. 2. Multiple procedure following that. 3. ICD implantation in 2011. 4. Severe aortic stenosis. 5. Advanced heart failure. 6. Diabetes mellitus with complication. 7. Chronic renal insufficiency. 8. Chronic vertigo. 9. Decreased hearing. 10. ICD placement. 11. History of cholelithiasis. HOME MEDICATIONS: Long list including albuterol, allopurinol, amiodarone 100 mg a day, aspirin 81 mg a day, Plavix 75 mg a day, Xarelto 20 mg a day, Atorvastatin 80 mg a day, fenofibrate 145 mg a day, Lasix 40 mg b.i.d., Imdur 30 mg a day, levothyroxine 150 mcg a day, metoprolol succinate 50 mg a day, potassium supplement, Ranexa 500 mg twice a day, and Protonix. ALLERGIES: NONE. SOCIAL HISTORY: He is nonsmoker and non-alcohol drinker. PHYSICAL EXAMINATION: VITAL SIGNS: Height of 5 feet 11 inches, weight of 199 pounds, blood pressure 110/80, heart rate of 100, and respiratory rate of 20. HEENT: Pupils are reactive. NECK: Elevation of jugular venous pulsation. CHEST: Decreased air entry and crackles. ICD is noted in place. Sternotomy scar is noted. HEART: PMI 5th left intercostal space. Increased intensity of second heart sound. Gallop is noted. ABDOMEN: Obese. Liver edge is palpable. EXTREMITIES: Mild peripheral edema. Chronic skin changes of several abrasion. Evidence of peripheral arterial vascular disease. LABORATORY DATA: Sodium of 137, potassium of 4, BUN of 18, and creatinine of 1.86. White blood cell count of 6.2, hemoglobin of 8.4, hematocrit 29%, and platelet count of 284,000. Chest x-ray, ICD in place. Mild pulmonary congestion. Troponin of 0.882. BNP of 1435. EKG showing nonspecific intraventricular conduction delay. Echocardiogram reviewed, which showed ejection fraction of less than 20%, markedly enlarged left ventricle with biventricular heart failure, severe calcified aortic valve with no good interrogation of the aortic valve. IMPRESSION AND PLAN: 1. Coronary artery disease, status post coronary artery bypass surgery in 2000. 2. ICD in 2011. 3. Multiple procedure following that. 4. Very severe advanced congestive heart failure. In fact, the patient is terminal cardiomyopathy. 5. Most likely severe aortic stenosis because of the patient account and the difficult nature of his problem. 6. Diabetes mellitus. 7. Severe end-organ damage. 8. Debility. 9. Peripheral vascular disease. This patient is almost terminal. His care is beyond the scope of this hospital. In fact, probably the same impression in [facility], but he need to go and visit with them and get the final decision about his status because to certain extent what I gather from him, they are thinking what to do for him. His case is difficult. Regardless, the prognosis will be poor whatever decision is made. I do not think the patient would be candidate for TAVR because already very severe advanced disease and very severe advanced dilated cardiomyopathy. Poor prognosis. MD FAY Lucio/DENIS /[id number]
[2019-03-26] MEDS ORDERED: ATORVASTATIN 40 MG TAB PO SCH (21:00)
--- NOTE | 2019-03-26 21:39 | NUR ---
Report called to Alexander RAMAN, and Pt transferred to105 via WC.
--- NOTE | 2019-03-26 22:09 | NUR ---
SPOKE TO DR. ALEMAN AT THIS TIME REGARDING PRN PAIN MED. NEW ORDER RECEIVED FOR NORCO 5MG Q6H PRN.
[2019-03-26] MEDS: HYDROCODONE/APAP 5MG-325MG TAB PO PRN (23:48)
[2019-03-27] VITALS: BP 106/70
[2019-03-27 06:05] VITALS: BP 100/58
[2019-03-27 06:17] LABS: BASOPHILS # (AUTO) 0.1 (0.0-0.1); BASOPHILS % 0.8 % (0.0-1.0); EOSINOPHILS # (AUTO) 0.4 (0.0-0.4); EOSINOPHILS % 5.1 % (0.0-6.0); HEMATOCRIT 27.5 % (38.2-49.6); HEMOGLOBIN 7.7 g/dL (14.0-18.0); LYMPHOCYTES # (AUTO) 1.1 (1.0-3.2); LYMPHOCYTES % 14.2 % (18.0-39.1); MEAN CORPUSCULAR HEMOGLOBIN 21.2 pg (28-32); MEAN CORPUSCULAR VOLUME 75.5 fL (81-99); MONOCYTES # (AUTO) 0.7 (0.2-0.8); MONOCYTES % 8.6 % (4.4-11.3); NEUTROPHILS # (AUTO) 5.5 (2.1-6.9); NEUTROPHILS % 69.3 % (38.7-80.0); PLATELET COUNT 246 x10e3/uL (140-360); RED BLOOD COUNT 3.64 x10e6/uL (4.3-5.7); RED CELL DISTRIBUTION WIDTH 18.7 % (11.7-14.4)
[2019-03-27] MEDS ORDERED: LEVOTHYROXINE SODIUM 50 MCG TAB PO SCH (06:30)
[2019-03-27 06:42] LABS: ANION GAP 13.5 mmol/L (8-16); CALCIUM 8.3 mg/dL (8.4-10.2); CREATININE, SERUM 1.66 mg/dL (0.72-1.25); POTASSIUM 3.5 mmol/L (3.5-5.1)
[2019-03-27] MEDS: HYDROCODONE/APAP 5MG-325MG TAB PO PRN (07:41)
[2019-03-27] MEDS: FUROSEMIDE 40 MG TAB PO SCH (07:41)
[2019-03-27] MEDS: AMIODARONE HCL 200 MG TAB PO SCH (07:41)
[2019-03-27] MEDS: GLIPIZIDE 5 MG TAB PO SCH (07:41)
[2019-03-27] MEDS: PANTOPRAZOLE SOD 40 MG TABEC PO SCH (07:41)
[2019-03-27] MEDS: CLOPIDOGREL BISULFATE 75 MG TAB PO SCH (07:41)
[2019-03-27] MEDS: POTASSIUM CHLORIDE 10MEQ EA PO SCH (07:42)
[2019-03-27] MEDS: METOPROLOL SUCCINATE 50 MG TAB XL PO SCH (07:42)
[2019-03-27] MEDS: RIVAROXABAN 20 MG TABLET PO SCH (07:42)
[2019-03-27] MEDS: ALLOPURINOL 100 MG TAB PO SCH (07:42)
[2019-03-27] MEDS: RANOLAZINE 500 MG TABSR PO SCH (07:42)
[2019-03-27 07:48] VITALS: BP 107/77
[2019-03-27 08:00] VITALS: BP 107/77
--- NOTE | 2019-03-27 08:07 | NUR ---
aware patient complaining of chest pain. Aware EKG shows afib with RVR 121. Per give scheduled beta ángela
[2019-03-27 08:11] LABS: HYPOCHROMASIA MODERATE; RBC MORPHOLOGY COMMENT ABNORMAL
--- NOTE | 2019-03-27 09:20 | NUR ---
Dr. Biggs at facility and aware of 's message if okay to d/c patient. Dr.M. Biggs states "I'll come back soon to see patient."
--- NOTE | 2019-03-27 09:34 | Progress Note ---
DATE: 03/27/2019 SUBJECTIVE: This is a 63-year-old gentleman with a history of coronary artery disease, history of aortic stenosis, history of congestive heart failure, history of uncontrolled diabetes mellitus. En route to [facility], the patient developed chest pain, came into the emergency room, admitted. The patient had some runs of ventricular tachycardia. Pain medication . The patient is currently stable. No complaints. No chest pain. No shortness of breath. OBJECTIVE: VITAL SIGNS: Temperature is 96.2, pulse of 109, respirations of 18, blood pressure is 107/77, and pulse oximetry of 98%. HEENT: Normocephalic and atraumatic. The patient is morbidly obese. CVS: S1 and S2, tachy. ABDOMEN: Nontender, nondistended. EXTREMITIES: Trace edema. LUNGS: Positive for crackles in lower bases. ASSESSMENT: 1. Coronary artery disease status post bypass patient. 2. History of congestive heart failure. 3. History of aortic stenosis. 4. Diabetes mellitus with neuropathy, nephropathy, and retinopathy. 5. Debility. 6. Peripheral vascular disease. PLAN: The patient can be discharged from medicine point of view. Will need to follow up with [facility] where possible TAVR is a possibility. The patient has to go to a higher level of sick care. Currently, the patient is stable and can be discharged if it is okay with Cardiology. Continue home medication. Overall prognosis is very guarded and poor. MD PEARL Calvillo/MODL /[id number]
--- NOTE | 2019-03-27 12:01 | NUR ---
FSBG 62. [place] juice given. aware. No new orders
[2019-03-27 12:08] VITALS: BP 100/58
--- NOTE | 2019-03-27 12:40 | NUR ---
FSBG 77 patient finishing lunch
--- NOTE | 2019-03-27 12:45 | NUR ---
Right AC IV discontinued. No signs of infiltration noted. 2x2 gauze and coban placed. Taken via wheelchair by PCT to personal car. Accompanied by family member. AAOX3 to time, person, place. Respirations even and unlabored. Denies pain. Discharge instructions and all personal belongings taken with patient. No rx available.
[2019-03-28 14:38] LABS: CREATINE KINASE MB 1.4 ng/mL (0-5.0)
--- NOTE | 2019-04-29 23:20 | Discharge Summary ---
HOSPITAL COURSE: The patient is a 63-year-old gentleman came in with coronary disease status post bypass, congestive heart failure. The patient also had aortic stenosis. The patient had severe critical aortic stenosis and the patient was actually en route to [facility] for possible TAVR. Consult with Dr. Biggs was done who saw the patient and recommendation of a scan to follow up as an inpatient in the medical center. FINAL DIAGNOSES: 1. Coronary artery disease status post bypass. 2. Severe advanced congestive heart failure. 3. Severe aortic stenosis. 4. Diabetes mellitus. 5. Severe end-organ damage and peripheral vascular disease. The patient was terminal. Defer the patient's hospital to [facility] to see if he would be a candidate for TAVR. Further recommendation clinical course the patient will be followed up and discharged to go to [facility]. MD JULI CalvilloJ/MODL /[id number]
== END 2019-03-27 12:45 | disposition home or self-care (01) | DRG 308 ==
LOC: ER 09:51 → ERHOLD 12:48 → ICU 22:36 → MED/SURG 03-26 21:46
PROVIDERS: ADMIT Family Medicine; ATTEND Family Medicine
DX: I48.20 Chronic atrial fibrillation, unspecified (principal); I50.43 Acute on chronic combined systolic (congestive) and diastolic (congestive) heart failure; I13.0 Hypertensive heart and chronic kidney disease with heart failure and stage 1 through stage 4 chronic kidney disease, or unspecified chronic kidney disease; N17.9 Acute kidney failure, unspecified; I25.2 Old myocardial infarction; I25.10 Atherosclerotic heart disease of native coronary artery without angina pectoris; H91.90 Unspecified hearing loss, unspecified ear; Z95.5 Presence of coronary angioplasty implant and graft; Z95.1 Presence of aortocoronary bypass graft; I35.0 Nonrheumatic aortic (valve) stenosis; R42 Dizziness and giddiness; Z95.810 Presence of automatic (implantable) cardiac defibrillator; N18.9 Chronic kidney disease, unspecified; E11.22 Type 2 diabetes mellitus with diabetic chronic kidney disease; Z79.4 Long term (current) use of insulin; E11.51 Type 2 diabetes mellitus with diabetic peripheral angiopathy without gangrene; N18.3 Chronic kidney disease, stage 3 (moderate)
CPT/HCPCS: 36415; 71046; 80048; 80053; 80061; 82550; 82553; 82948; 83540; 83880; 84443; 84466; 84484; 85025; 85610; 85730; 93005; 93306; 99284; J1940